=== PATIENT | male | born 1975 | race Two or more races ===

== ENCOUNTER 2019-12-02 11:10 | Inpatient (IN) | payer BC, MEDICAID ==
[~2019-12-02] VITALS: Ht 167.6 cm; Wt 64.5 kg
[~2019-12-02 11:10] MED LIST: ETOMIDATE 20 MG/10 ML ONE; VECURONIUM 10 MG ONE
[2019-12-02] MEDS ORDERED: ROCURONIUM 10MG/ML,5ML ONE (11:35)
[2019-12-02] MEDS ORDERED: ETOMIDATE 20 MG/10 ML ONE (11:35)
[2019-12-02] MEDS ORDERED: PROPOFOL 10 MG/ML, 100ML IV ONE (11:35)
--- NOTE | 2019-12-02 11:40 | NUR ---
PT. ARRIVES BY [facility] WITH C/O 5 DAY HX OF FEVER AND COUGH WITH INCREASING SOB TODAY. PT. PRESENTED TO URGENT CARE WHERE HE WAS REPORTED TO BE 50% SPO2 ON ROOM AIR. PT. WAS TRANSPORTED TO THE ED FOR TX. PT. HAS A NON-REBREATHER IN PLACE AT 15L. PT.'S SPO2 IS 90%. PT. WAS SWITCHED TO A HIGH FLOW NASAL CANNULA AT 45L/98% O2. PT. IS PINK, WARM AND DRY. CAP REFILL IS BRISK, LESS THAN 2 SECONDS. PT. HAS A #20G IV IN PLACE IN HIS LFA A SECOND IV WAS ESTABLASHED IN HIS R HAND. PT.'S 12 LEAD EKG WAS DONE AND HE HAS THE CP MONITOR IN PLACE. PT. LABS WERE DRAWN AND SENT. THE HOB IS ELEVATED GREATER THAN 30 DEGREES AND HE HAS BLANKETS IN PLACE FOR WARMTH. PT. REMAINS A & OX 4 WITH A GCS OF 15. PUPILS ARE PERRLA. HIS NECK IS MIDLINE WITHOUT JVD NOTED. CHEST RISE AND FALL IS SYMMETRICAL AND CRACKLES WERE NOTED IN HIS LEFT LOWER LOBE, OTHERWISE HIS LUNGS ARE CLEAR. S1 S2 NOTED WITH MURMURS, RUBS OR GALLOPS. ABD. IS SOFT AND NON-TENDER WITH BS + X 4 QUADS. PULSES ARE + 2 THROUGHOUT. PT. IS ABLE TO MOVE ALL EXTREMITIES WNL AND HE NO C/O PARESTHSIA, ATAXIA, NUMBNESS, LIMB DRIFTS OR PAIN. PT. REPORTS A HX OF DM AND HTN WHICH HE TAKES METFORMIN AND LISINOPRIL FOR. HE STATES HE RAN OUT OF HIS HOME MEDICATIONS X 5 DAYS AGO. BGL= 375 IN THE FIELD. NS IS INFUSING ON THE PUMP AT 250CC/HR. DR. HAY IS AT THE BEDSIDE. PT. DENIES C/O PAIN OR DISCOMFORT. RESPIRATIONS ARE EUPNEIC AND HE REMAINS IN A SINUS RHYTHM ON THE CARDIOPULMORY MONITOR AT THIS TIME. THE CALL LIGHT IS IN REACH. COVID-[address]
[2019-12-02] MEDS ORDERED: METF850T10 PO (11:51)
[2019-12-02] MEDS ORDERED: LISI-170 PO (11:51)
[2019-12-02 11:53] LABS: BASOPHILS % (AUTO) 0 % (0-1); EOSINOPHILS % (AUTO) 0 % (1-7); LYMPHOCYTES % (AUTO) 12 % (22-44); MEAN CORPUSCULAR HEMOGLOBIN 29.5 pg (27.5-34.5); MEAN CORPUSCULAR HGB CONC 34.1 g/dL (33.2-36.2); MEAN PLATELET VOLUME 8.8 fL (7.4-10.4); MONOCYTES % (AUTO) 5 % (2-9); NEUTROPHILS % (AUTO) 83 % (42-75); PLATELET COUNT 150 x10^3/uL (130-400); RED BLOOD COUNT 4.03 x10^6/uL (4.38-5.82)
[2019-12-02 12:03] LABS: ALANINE AMINOTRANSFERASE 43 U/L (12-78); ALBUMIN 2.6 g/dL (3.4-5.0); ANION GAP 9 mmol/L (5-15); CALCIUM 7.7 mg/dL (8.5-10.1); CHLORIDE 103 mmol/L (98-107); CREATININE 1.09 mg/dL (0.7-1.3)
[2019-12-02 12:08] LABS: D-DIMER (DIC) 1.34 ug/mlFEU (0.00-0.52); PROTIME 10.6 Seconds (9.6-11.5)
[2019-12-02 12:09] LABS: ALKALINE PHOSPHATASE 130 U/L (45-117); BILIRUBIN,TOTAL 0.4 mg/dL (0.2-1.0)
[2019-12-02 12:12] LABS: C-REACTIVE PROTEIN, QUANT > 19.00 mg/dL (0.02-0.49)
[2019-12-02] MEDS: DOXYCYCLINE 100 MG in DEXTROSE 5% 250 ML IV SCH ×2 (12:20→13:20)
[2019-12-02 12:21] LABS: MD NO
[2019-12-02] MEDS ORDERED: SODIUM CHLORIDE 0.9% 1,000 ML IV ONE (12:30)
--- NOTE | 2019-12-02 12:32 | NUR ---
PT. REMAINS MONITORED AND IS RESTING WITHOUT CONCERNS. VSS. DR. HAY AT THE BEDSIDE TO DISCUSS FINDINGS. SIDERAILS REMAIN UP X 2 WITH THE CALL LIGHT IN PLACE. PT.'S WAS CONTACTED AND GIVEN INFORMATION ABOUT HIS DIAGNOSIS AT HIS REQUEST.
[2019-12-02] MEDS ORDERED: DEXAMETHASONE 4 MG/ML, 1ML ONE (12:47)
[2019-12-02] MEDS ORDERED: INSULIN SINGLE DOSE, ER ONE (12:48)
[2019-12-02] MEDS ORDERED: DEXAMETHASONE 4 MG/ML, 1ML IVPush ONE (13:00)
[2019-12-02] MEDS ORDERED: INSULIN REGULAR 100 UNITS/ML, 3ML VIAL SQ-INSULIN ONE (13:00)
--- NOTE | 2019-12-02 14:05 | NUR ---
CT WAITING FOR OK FROM RN
[2019-12-02] MEDS ORDERED: ONDANSETRON ODT 4 MG PO PRN (14:30)
[2019-12-02] MEDS ORDERED: LEVOFLOXACIN/PMX 750MG/150ML 150 ML IV SCH (14:30)
[2019-12-02] MEDS ORDERED: ENOXAPARIN 40 MG/0.4 ML SQ SCH (14:30)
[2019-12-02] MEDS: ZINC SULFATE 220 MG CAPSULE PO SCH (14:30)
[2019-12-02] MEDS ORDERED: CEFTRIAXONE PMX 1GM/50ML 50 ML IV SCH (14:30)
[2019-12-02] MEDS ORDERED: ONDANSETRON 2MG/ML, 2ML IVPush PRN (14:30)
[2019-12-02] MEDS ORDERED: CHOLECALCIFEROL 400 UNITS TABLET PO SCH (14:30)
[2019-12-02] MEDS ORDERED: IBUPROFEN 600 MG TABLET PO PRN (14:30)
[2019-12-02] MEDS ORDERED: OMNIPAQUE 350 MG/ML, 100ML BOTTLE ONE (14:42)
[2019-12-02 15:00] VITALS: BP 98/62
[2019-12-02] MEDS: INSULIN LISPRO 100 UNITS/ML, PEN SQ-INSULIN SCH ×2 (17:31→22:22)
[2019-12-02 17:45] VITALS: BP 117/76
[2019-12-02] MEDS ORDERED: MIDAZOLAM 1 MG/ML, 5ML ONE (18:41)
[2019-12-02] MEDS ORDERED: PROPOFOL 100 ML IV ONE (18:41)
[2019-12-02] MEDS ORDERED: LACTULOSE 20 GM/30 ML UDC NG PRN (20:30)
[2019-12-02] MEDS: CHOLECALCIFEROL 5,000u TAB PO SCH (20:30)
[2019-12-02] MEDS ORDERED: GLUCAGON 1 MG IM PRN (20:30)
[2019-12-02] MEDS ORDERED: DEXTROSE 4 GM TAB.CHEW PO PRN (20:30)
[2019-12-02] MEDS ORDERED: DEXTROSE 50%, 50ML SYRINGE IVPush PRN (20:30)
[2019-12-02] MEDS ORDERED: PHARMACY MAY ADJ FOR RENAL FX MC SCH (20:30)
[2019-12-02] MEDS ORDERED: DOXYCYCLINE 100MG TABLET PO SCH (21:00)
[2019-12-02] MEDS ORDERED: MELATONIN 5 MG TABLET PO SCH (21:00)
[2019-12-02] MEDS: SODIUM CHLORIDE FLUSH 10ML SYR IVF SCH (21:00)
[2019-12-02] MEDS: ASCORBIC ACID 500 MG TABLET PO SCH (21:00)
[2019-12-02] MEDS: THIAMINE 100MG TABLET PO SCH (21:00)
[2019-12-02] MEDS: FENTANYL PF 1,000 MCG in SODIUM CHLORIDE 0.9% 80 ML IV PRN (21:30)
[2019-12-02] MEDS: PROPOFOL 100 ML IV PRN (21:52)
[2019-12-02] MEDS: FAMOTIDINE 20 MG/2 ML IV SCH (22:21)
[2019-12-02] MEDS ORDERED: MIDAZOLAM HCL 50 MG in SODIUM CHLORIDE 0.9% 40 ML IV PRN (23:00)
[2019-12-02] MEDS: ALBUTEROL/IPRATROPIUM 2.5MG/0.5MG, 3 ML HHN SCH (23:00)
[2019-12-03] MEDS ORDERED: REMDESIVIR 200 MG in SODIUM CHLORIDE 0.9% 250 ML IVPB ONE
[2019-12-03] MEDS: NOREPINEPHRINE 8 MG in SODIUM CHLORIDE 0.9% 242 ML IV PRN (01:07)
[2019-12-03] MEDS: FENTANYL PF 1,000 MCG in SODIUM CHLORIDE 0.9% 80 ML IV PRN (02:00)
[2019-12-03] MEDS: PROPOFOL 100 ML IV PRN ×3 (02:02→23:21)
[2019-12-03] MEDS: ALBUTEROL/IPRATROPIUM 2.5MG/0.5MG, 3 ML HHN SCH ×4 (02:14→22:19)
[2019-12-03 04:55] LABS: HCT (SEDRATE) 33.9 % (39.2-51.8)
[2019-12-03 05:00] LABS: CALCIUM 7.3 mg/dL (8.5-10.1); CHLORIDE 106 mmol/L (98-107)
[2019-12-03 05:13] LABS: ALANINE AMINOTRANSFERASE 49 U/L (12-78); ALBUMIN 2.2 g/dL (3.4-5.0); ALKALINE PHOSPHATASE 182 U/L (45-117); ANION GAP 12 mmol/L (5-15); CREATININE 1.51 mg/dL (0.7-1.3); TOTAL PROTEIN 6.4 g/dL (6.4-8.2)
[2019-12-03 05:24] LABS: MEAN CORPUSCULAR HEMOGLOBIN 29.8 pg (27.5-34.5); MEAN CORPUSCULAR HGB CONC 34.3 g/dL (33.2-36.2); MEAN PLATELET VOLUME 9.2 fL (7.4-10.4); PLATELET COUNT 155 x10^3/uL (130-400); RED BLOOD COUNT 3.83 x10^6/uL (4.38-5.82); RED CELL DISTRIBUTION WIDTH 13.1 % (9.4-14.8)
[2019-12-03 05:58] LABS: MD YES
[2019-12-03 06:00] LABS: BAND#(MANUAL) 4.37 x10^3/uL; BANDS%(MANUAL) 38 % (0-7); LYMPH#(MANUAL) 0.92 x10^3/uL (1-3.4); LYMPHS% (MANUAL) 8 % (22-44); METAMYELOCYTES# (MANUAL) 0.23 x10^3/uL (0-0); METAMYELOCYTES% (MANUAL) 2 % (0-1); MONOS#(MANUAL) 0.46 x10^3/uL (0.3-2.7); MONOS% (MANUAL) 4 % (2-9); SEG#(MANUAL) 5.52 x10^3/uL (1.8-6.8); SEGS% (MANUAL) 48 % (42-75)
[2019-12-03] MEDS ORDERED: LACTATED RINGERS 1,000 ML IVBOLUS ONE (06:00)
[2019-12-03 06:02] LABS: ANISOCYTOSIS 1+; POLYCHROMASIA 1+
[2019-12-03 06:03] LABS: <PLATELET ESTIMATE> DECREASED; <PLT MORPHOLOGY> NORMAL PLT MORPH
[2019-12-03 06:05] LABS: C-REACTIVE PROTEIN, QUANT > 19.00 mg/dL (0.02-0.49)
[2019-12-03] MEDS: FAMOTIDINE 20 MG/2 ML IV SCH (08:30)
[2019-12-03] MEDS: ENOXAPARIN 80 MG/0.8 ML SQ SCH ×2 (08:30→20:35)
[2019-12-03] MEDS: CHOLECALCIFEROL 5,000u TAB PO SCH (08:31)
[2019-12-03] MEDS: ZINC SULFATE 220 MG CAPSULE PO SCH (08:31)
[2019-12-03] MEDS: THIAMINE 100MG TABLET PO SCH ×2 (08:31→20:34)
[2019-12-03] MEDS: DEXAMETHASONE 4 MG/ML, 1ML IVPush SCH (08:31)
[2019-12-03] MEDS: ASCORBIC ACID 500 MG TABLET PO SCH ×2 (08:31→20:34)
[2019-12-03] MEDS: INSULIN LISPRO 100 UNITS/ML, PEN SQ-INSULIN SCH ×2 (08:32→17:29)
[2019-12-03] MEDS: SODIUM CHLORIDE FLUSH 10ML SYR IVF SCH ×2 (08:43→20:34)
[2019-12-03 08:53] LABS: RAPID INFLUENZA A Negative (Negative); RAPID INFLUENZA B Negative (Negative)
[2019-12-03] MEDS ORDERED: VANCOMYCIN PER PHARMACY MC PRN (09:30)
[2019-12-03] MEDS ORDERED: PHARMACOKINETIC MONITORING MC PRN (10:30)
[2019-12-03] MEDS ORDERED: VANCOMYCIN 1,900 MG in SODIUM CHLORIDE 0.9% 250 ML IV ONE (10:30)
[2019-12-03] MEDS ORDERED: PHARMACOKINETIC CONSULTATION MC ONE (10:30)
[2019-12-03] MEDS: PANTOPRAZOLE 40 MG IV IVPush SCH (10:30)
[2019-12-03] MEDS ORDERED: SODIUM CHLORIDE 0.9% 1,000ML IVBOLUS ONE (11:00)
--- NOTE | 2019-12-03 12:15 | NUR ---
TF per RD: Vital AF 1.2 @ goal rate of 60mL/hr (on propofol); 65mL/hr (off propofol) Addendum: 12/03/19 at [address] Amended: Links added.
[2019-12-03 13:25] LABS: MICROSCOPIC INDICATED
[2019-12-03] MEDS: LEVOFLOXACIN/PMX 750MG/150ML 150 ML IV SCH (14:12)
[2019-12-03] MEDS: SENNA/DOCUSATE TABLET NG PRN (20:34)
[2019-12-03] MEDS: ACETAMINOPHEN 325 MG TABLET PO PRN (20:34)
[2019-12-04] MEDS: REMDESIVIR 100 MG in SODIUM CHLORIDE 0.9% 250 ML IVPB SCH ×2 (00:27→23:42)
[2019-12-04] MEDS: INSULIN LISPRO 100 UNITS/ML, PEN SQ-INSULIN SCH ×5 (00:27→23:41)
[2019-12-04] MEDS: FENTANYL PF 1,000 MCG in SODIUM CHLORIDE 0.9% 80 ML IV PRN ×3 (01:36→18:09)
[2019-12-04] MEDS: ALBUTEROL/IPRATROPIUM 2.5MG/0.5MG, 3 ML HHN SCH ×4 (02:23→22:39)
[2019-12-04 05:54] LABS: ANION GAP 8 mmol/L (5-15); CALCIUM 7.1 mg/dL (8.5-10.1); CHLORIDE 106 mmol/L (98-107); CREATININE 2.28 mg/dL (0.7-1.3)
[2019-12-04 05:56] LABS: VANCOMYCIN,RANDOM 14.1 mcg/mL
[2019-12-04 05:58] LABS: MEAN CORPUSCULAR HEMOGLOBIN 30.2 pg (27.5-34.5); PLATELET COUNT 174 x10^3/uL (130-400); RED BLOOD COUNT 3.45 x10^6/uL (4.38-5.82); RED CELL DISTRIBUTION WIDTH 13.4 % (9.4-14.8)
[2019-12-04 06:55] LABS: MD YES
[2019-12-04 06:57] LABS: <PLATELET ESTIMATE> ADEQUATE; <PLT MORPHOLOGY> NORMAL PLT MORPH; ANISOCYTOSIS 1+; BAND#(MANUAL) 2.47 x10^3/uL; BANDS%(MANUAL) 19 % (0-7); LYMPH#(MANUAL) 0.91 x10^3/uL (1-3.4); LYMPHS% (MANUAL) 7 % (22-44); METAMYELOCYTES# (MANUAL) 0.26 x10^3/uL (0-0); METAMYELOCYTES% (MANUAL) 2 % (0-1); MONOS#(MANUAL) 0.39 x10^3/uL (0.3-2.7); MONOS% (MANUAL) 3 % (2-9); POLYCHROMASIA 1+; SEG#(MANUAL) 8.97 x10^3/uL (1.8-6.8); SEGS% (MANUAL) 69 % (42-75)
[2019-12-04] MEDS ORDERED: VANCOMYCIN PMX 1GM/200ML 200 ML IVPB ONE (08:00)
[2019-12-04] MEDS: DEXAMETHASONE 4 MG/ML, 1ML IVPush SCH (08:13)
[2019-12-04] MEDS: ZINC SULFATE 220 MG CAPSULE PO SCH (08:13)
[2019-12-04] MEDS: PANTOPRAZOLE 40 MG IV IVPush SCH (08:13)
[2019-12-04] MEDS: THIAMINE 100MG TABLET PO SCH ×2 (08:13→20:36)
[2019-12-04] MEDS: SODIUM CHLORIDE FLUSH 10ML SYR IVF SCH ×2 (08:13→20:37)
[2019-12-04] MEDS: ENOXAPARIN 80 MG/0.8 ML SQ SCH ×2 (08:13→20:36)
[2019-12-04] MEDS: ASCORBIC ACID 500 MG TABLET PO SCH ×2 (08:14→20:36)
[2019-12-04] MEDS: INSULIN GLARGINE 100 UNITS/ML, PEN SQ-INSULIN SCH ×2 (08:17→20:40)
[2019-12-04] MEDS ORDERED: LACTATED RINGERS 1,000 ML IV SCH (10:00)
[2019-12-04] MEDS ORDERED: VANCOMYCIN 1,500 MG in SODIUM CHLORIDE 0.9% 250 ML IV SCH (11:00)
[2019-12-04] MEDS: LEVOFLOXACIN/PMX 750MG/150ML 150 ML IV SCH (13:12)
[2019-12-04 15:35] LABS: ALANINE AMINOTRANSFERASE 49 U/L (12-78); ANION GAP 9 mmol/L (5-15); CALCIUM 7.4 mg/dL (8.5-10.1); CHLORIDE 108 mmol/L (98-107); CREATININE 2.36 mg/dL (0.7-1.3)
[2019-12-04 15:37] LABS: ALKALINE PHOSPHATASE 168 U/L (45-117); BILIRUBIN,TOTAL 0.6 mg/dL (0.2-1.0); TOTAL PROTEIN 6.4 g/dL (6.4-8.2)
[2019-12-05] MEDS: ALBUTEROL/IPRATROPIUM 2.5MG/0.5MG, 3 ML HHN SCH ×2 (02:13→07:10)
[2019-12-05] MEDS: FENTANYL PF 1,000 MCG in SODIUM CHLORIDE 0.9% 80 ML IV PRN ×4 (02:51→23:52)
[2019-12-05] MEDS: PROPOFOL 100 ML IV PRN (05:31)
[2019-12-05] MEDS: INSULIN LISPRO 100 UNITS/ML, PEN SQ-INSULIN SCH ×5 (05:42→21:05)
[2019-12-05 06:11] LABS: MEAN CORPUSCULAR HGB CONC 33.1 g/dL (33.2-36.2); MEAN PLATELET VOLUME 8.9 fL (7.4-10.4); PLATELET COUNT 216 x10^3/uL (130-400); RED BLOOD COUNT 3.54 x10^6/uL (4.38-5.82); RED CELL DISTRIBUTION WIDTH 13.8 % (9.4-14.8)
[2019-12-05 06:20] LABS: INTERNATIONAL NORMALIZED RATIO 1.1 (0.93-1.1); PROTHROMBIN TIME 11.7 Seconds (9.6-11.5)
[2019-12-05 06:22] LABS: ALANINE AMINOTRANSFERASE 39 U/L (12-78); ALBUMIN 1.9 g/dL (3.4-5.0); ANION GAP 7 mmol/L (5-15); CALCIUM 7.5 mg/dL (8.5-10.1); CHLORIDE 110 mmol/L (98-107); CREATININE 1.78 mg/dL (0.7-1.3); TRIGLYCERIDES 309 mg/dL (50-200)
[2019-12-05 06:24] LABS: ALKALINE PHOSPHATASE 171 U/L (45-117); BILIRUBIN,TOTAL 0.4 mg/dL (0.2-1.0); TOTAL PROTEIN 6.3 g/dL (6.4-8.2); VANCOMYCIN,RANDOM 10.8 mcg/mL
[2019-12-05 06:34] LABS: MD YES
[2019-12-05 06:36] LABS: BANDS%(MANUAL) 10 % (0-7); ECHINOCYTES 1+; LYMPH#(MANUAL) 1.53 x10^3/uL (1-3.4); LYMPHS% (MANUAL) 9 % (22-44); MONOS#(MANUAL) 1.02 x10^3/uL (0.3-2.7); MONOS% (MANUAL) 6 % (2-9); REACTIVE LYMPHS # (MANUAL) 0.17 x10^3/uL (0-0); REACTIVE LYMPHS % (MANUAL) 1 % (0-0); SEG#(MANUAL) 12.58 x10^3/uL (1.8-6.8); SEGS% (MANUAL) 74 % (42-75)
[2019-12-05 06:37] LABS: <PLATELET ESTIMATE> ADEQUATE; <PLT MORPHOLOGY> NORMAL PLT MORPH; POLYCHROMASIA 1+
[2019-12-05] MEDS: ENOXAPARIN 80 MG/0.8 ML SQ SCH ×2 (08:51→20:40)
[2019-12-05] MEDS: SODIUM CHLORIDE FLUSH 10ML SYR IVF SCH ×2 (08:51→21:02)
[2019-12-05] MEDS: PANTOPRAZOLE 40 MG IV IVPush SCH (08:52)
[2019-12-05] MEDS: ASCORBIC ACID 500 MG TABLET PO SCH ×2 (08:52→20:41)
[2019-12-05] MEDS: THIAMINE 100MG TABLET PO SCH ×2 (08:52→20:40)
[2019-12-05] MEDS: DEXAMETHASONE 4 MG/ML, 1ML IVPush SCH (08:52)
[2019-12-05] MEDS: ZINC SULFATE 220 MG CAPSULE PO SCH (08:52)
[2019-12-05] MEDS: CHOLECALCIFEROL 1,000 UNIT TABLET PO SCH (08:55)
[2019-12-05] MEDS ORDERED: VANCOMYCIN 1,600 MG in SODIUM CHLORIDE 0.9% 250 ML IV ONE (09:00)
[2019-12-05] MEDS ORDERED: INSULIN GLARGINE 100 UNITS/ML, PEN SQ-INSULIN SCH (09:00)
[2019-12-05] MEDS: MIDAZOLAM HCL 50 MG in SODIUM CHLORIDE 0.9% 40 ML IV PRN ×3 (09:19→23:53)
[2019-12-05] MEDS: ALBUTEROL/IPRATROPIUM 2.5MG/0.5MG, 3 ML INLINE SCH ×4 (10:10→23:45)
[2019-12-05] MEDS: DOXYCYCLINE 100 MG in DEXTROSE 5% 250 ML IV SCH ×2 (12:05→23:52)
[2019-12-05] MEDS ORDERED: INSULIN LISPRO 100 UNITS/ML, PEN SQ-INSULIN SCH (13:00)
[2019-12-05] MEDS: INSULIN GLARGINE 100 UNITS/ML, PEN SQ-INSULIN SCH (21:05)
[2019-12-05] MEDS: REMDESIVIR 100 MG in SODIUM CHLORIDE 0.9% 250 ML IVPB SCH (23:52)
[2019-12-06] MEDS: INSULIN LISPRO 100 UNITS/ML, PEN SQ-INSULIN SCH ×9 (00:30→21:17)
[2019-12-06] MEDS: ALBUTEROL/IPRATROPIUM 2.5MG/0.5MG, 3 ML INLINE SCH ×6 (03:05→22:48)
[2019-12-06 05:54] LABS: ALBUMIN 1.7 g/dL (3.4-5.0); ANION GAP 6 mmol/L (5-15); CHLORIDE 115 mmol/L (98-107)
[2019-12-06 05:55] LABS: MEAN CORPUSCULAR HEMOGLOBIN 29.5 pg (27.5-34.5); MEAN CORPUSCULAR HGB CONC 33.3 g/dL (33.2-36.2); MEAN PLATELET VOLUME 8.7 fL (7.4-10.4); PLATELET COUNT 229 x10^3/uL (130-400); RED BLOOD COUNT 3.43 x10^6/uL (4.38-5.82); RED CELL DISTRIBUTION WIDTH 13.8 % (9.4-14.8)
[2019-12-06 05:58] LABS: ALANINE AMINOTRANSFERASE 31 U/L (12-78); ALKALINE PHOSPHATASE 176 U/L (45-117); BILIRUBIN,TOTAL 0.4 mg/dL (0.2-1.0); CREATININE 1.52 mg/dL (0.7-1.3); TOTAL PROTEIN 6.1 g/dL (6.4-8.2)
[2019-12-06 06:01] LABS: VANCOMYCIN,RANDOM 13.1 mcg/mL
[2019-12-06 06:23] LABS: MD YES
[2019-12-06 06:26] LABS: BAND#(MANUAL) 2.82 x10^3/uL; BANDS%(MANUAL) 16 % (0-7); LYMPH#(MANUAL) 1.23 x10^3/uL (1-3.4); LYMPHS% (MANUAL) 7 % (22-44); MONOS#(MANUAL) 0.18 x10^3/uL (0.3-2.7); MONOS% (MANUAL) 1 % (2-9); MYELOCYTES# (MANUAL) 0.18 x10^3/uL (0-0); MYELOCYTES% (MANUAL) 1 % (0-0); SEGS% (MANUAL) 75 % (42-75)
[2019-12-06 06:27] LABS: ANISOCYTOSIS 1+; POLYCHROMASIA 1+; TEAR DROPS 1+
[2019-12-06 06:28] LABS: ECHINOCYTES 1+
[2019-12-06 06:29] LABS: <PLATELET ESTIMATE> ADEQUATE
[2019-12-06 06:30] LABS: <PLT MORPHOLOGY> NORMAL PLT MORPH
[2019-12-06] MEDS: FENTANYL PF 1,000 MCG in SODIUM CHLORIDE 0.9% 80 ML IV PRN ×3 (08:18→23:29)
[2019-12-06] MEDS: PANTOPRAZOLE 40 MG IV IVPush SCH (08:47)
[2019-12-06] MEDS: ENOXAPARIN 80 MG/0.8 ML SQ SCH ×2 (08:47→20:59)
[2019-12-06] MEDS: DEXAMETHASONE 4 MG/ML, 1ML IVPush SCH (08:47)
[2019-12-06] MEDS: SODIUM CHLORIDE FLUSH 10ML SYR IVF SCH ×2 (08:48→21:14)
[2019-12-06] MEDS: CHOLECALCIFEROL 1,000 UNIT TABLET PO SCH (08:48)
[2019-12-06] MEDS: ZINC SULFATE 220 MG CAPSULE PO SCH (08:49)
[2019-12-06] MEDS: ASCORBIC ACID 500 MG TABLET PO SCH ×2 (08:51→20:57)
[2019-12-06] MEDS: THIAMINE 100MG TABLET PO SCH ×2 (08:51→20:57)
[2019-12-06] MEDS: INSULIN GLARGINE 100 UNITS/ML, PEN SQ-INSULIN SCH ×2 (08:52→21:17)
[2019-12-06] MEDS ORDERED: FUROSEMIDE 40 MG/4 ML IV ONE (10:00)
[2019-12-06] MEDS: QUETIAPINE 25MG TABLET PO SCH ×3 (10:43→20:58)
[2019-12-06] MEDS: DOXYCYCLINE 100 MG in DEXTROSE 5% 250 ML IV SCH ×2 (10:43→23:29)
[2019-12-06] MEDS: MIDAZOLAM HCL 50 MG in SODIUM CHLORIDE 0.9% 40 ML IV PRN ×2 (12:27→16:20)
[2019-12-06] MEDS: REMDESIVIR 100 MG in SODIUM CHLORIDE 0.9% 250 ML IVPB SCH (23:29)
[2019-12-07] MEDS: INSULIN LISPRO 100 UNITS/ML, PEN SQ-INSULIN SCH ×8 (01:00→21:02)
[2019-12-07] MEDS: ALBUTEROL/IPRATROPIUM 2.5MG/0.5MG, 3 ML INLINE SCH ×6 (02:09→22:28)
[2019-12-07] MEDS: MIDAZOLAM HCL 50 MG in SODIUM CHLORIDE 0.9% 40 ML IV PRN ×3 (02:32→20:54)
[2019-12-07 04:35] LABS: ANION GAP 8 mmol/L (5-15); CALCIUM 8.4 mg/dL (8.5-10.1); CHLORIDE 112 mmol/L (98-107)
[2019-12-07 05:01] LABS: MEAN CORPUSCULAR HEMOGLOBIN 29.5 pg (27.5-34.5); MEAN CORPUSCULAR HGB CONC 33.1 g/dL (33.2-36.2); MEAN PLATELET VOLUME 9.1 fL (7.4-10.4); PLATELET COUNT 235 x10^3/uL (130-400); RED BLOOD COUNT 3.39 x10^6/uL (4.38-5.82); RED CELL DISTRIBUTION WIDTH 14.1 % (9.4-14.8)
[2019-12-07] MEDS: FENTANYL PF 1,000 MCG in SODIUM CHLORIDE 0.9% 80 ML IV PRN ×3 (05:30→20:55)
[2019-12-07 05:53] LABS: MD YES
[2019-12-07 05:58] LABS: LYMPH#(MANUAL) 1.82 x10^3/uL (1-3.4); LYMPHS% (MANUAL) 13 % (22-44); METAMYELOCYTES# (MANUAL) 0.56 x10^3/uL (0-0); METAMYELOCYTES% (MANUAL) 4 % (0-1); MONOS#(MANUAL) 0.98 x10^3/uL (0.3-2.7); MONOS% (MANUAL) 7 % (2-9); MYELOCYTES# (MANUAL) 0.28 x10^3/uL (0-0); MYELOCYTES% (MANUAL) 2 % (0-0); SEG#(MANUAL) 10.36 x10^3/uL (1.8-6.8); SEGS% (MANUAL) 74 % (42-75)
[2019-12-07 05:59] LABS: <PLATELET ESTIMATE> ADEQUATE; <PLT MORPHOLOGY> NORMAL PLT MORPH
[2019-12-07 06:00] LABS: POLYCHROMASIA 1+
[2019-12-07] MEDS: SODIUM CHLORIDE FLUSH 10ML SYR IVF SCH ×2 (08:03→20:52)
[2019-12-07] MEDS: PANTOPRAZOLE 40 MG IV IVPush SCH (08:03)
[2019-12-07] MEDS: ENOXAPARIN 80 MG/0.8 ML SQ SCH ×2 (08:03→20:52)
[2019-12-07] MEDS: DEXAMETHASONE 4 MG/ML, 1ML IVPush SCH (08:05)
[2019-12-07] MEDS: INSULIN GLARGINE 100 UNITS/ML, PEN SQ-INSULIN SCH ×2 (08:07→21:02)
[2019-12-07] MEDS: QUETIAPINE 25MG TABLET PO SCH ×3 (08:09→20:52)
[2019-12-07] MEDS: ASCORBIC ACID 500 MG TABLET PO SCH ×2 (08:10→20:52)
[2019-12-07] MEDS: CHOLECALCIFEROL 1,000 UNIT TABLET PO SCH (08:10)
[2019-12-07] MEDS: ZINC SULFATE 220 MG CAPSULE PO SCH (08:10)
[2019-12-07] MEDS: THIAMINE 100MG TABLET PO SCH ×2 (08:10→20:52)
[2019-12-07] MEDS: DOXYCYCLINE 100 MG in DEXTROSE 5% 250 ML IV SCH (11:27)
[2019-12-07] MEDS: MIDAZOLAM 1 MG/ML, 2ML IVPush PRN ×2 (13:15→18:29)
[2019-12-07] MEDS: POLYETHYLENE GLYCOL 17 GM PACKET PO PRN (17:41)
[2019-12-07] MEDS: SENNA/DOCUSATE TABLET NG PRN (17:41)
[2019-12-07] MEDS: REMDESIVIR 100 MG in SODIUM CHLORIDE 0.9% 250 ML IVPB SCH (23:27)
[2019-12-08] MEDS: INSULIN LISPRO 100 UNITS/ML, PEN SQ-INSULIN SCH ×9 (00:30→23:59)
[2019-12-08] MEDS: DOXYCYCLINE 100 MG in DEXTROSE 5% 250 ML IV SCH ×2 (01:21→11:45)
[2019-12-08] MEDS: ALBUTEROL/IPRATROPIUM 2.5MG/0.5MG, 3 ML INLINE SCH ×6 (01:45→22:26)
[2019-12-08] MEDS: LIDOCAINE-MPF 1%, 2ML ENDO PRN (03:51)
[2019-12-08 04:20] LABS: MEAN CORPUSCULAR HEMOGLOBIN 29.5 pg (27.5-34.5); MEAN CORPUSCULAR HGB CONC 32.8 g/dL (33.2-36.2); MEAN PLATELET VOLUME 8.2 fL (7.4-10.4); PLATELET COUNT 240 x10^3/uL (130-400); RED BLOOD COUNT 3.56 x10^6/uL (4.38-5.82); RED CELL DISTRIBUTION WIDTH 13.8 % (9.4-14.8)
[2019-12-08 04:29] LABS: INTERNATIONAL NORMALIZED RATIO 1.08 (0.93-1.1); PROTHROMBIN TIME 11.4 Seconds (9.6-11.5)
[2019-12-08 04:31] LABS: ALBUMIN 1.9 g/dL (3.4-5.0); ANION GAP 7 mmol/L (5-15); CALCIUM 8.8 mg/dL (8.5-10.1); CHLORIDE 116 mmol/L (98-107)
[2019-12-08 04:34] LABS: ALANINE AMINOTRANSFERASE 54 U/L (12-78); ALKALINE PHOSPHATASE 180 U/L (45-117); BILIRUBIN,TOTAL 0.4 mg/dL (0.2-1.0); CREATININE 1.36 mg/dL (0.7-1.3); TOTAL PROTEIN 6.2 g/dL (6.4-8.2); TRIGLYCERIDES 137 mg/dL (50-200)
[2019-12-08] MEDS: MIDAZOLAM HCL 50 MG in SODIUM CHLORIDE 0.9% 40 ML IV PRN ×3 (04:38→18:50)
[2019-12-08] MEDS: FENTANYL PF 1,000 MCG in SODIUM CHLORIDE 0.9% 80 ML IV PRN ×3 (04:38→18:50)
[2019-12-08 04:48] LABS: MD YES
[2019-12-08 04:50] LABS: BAND#(MANUAL) 0.65 x10^3/uL; BANDS%(MANUAL) 4 % (0-7); LYMPH#(MANUAL) 2.45 x10^3/uL (1-3.4); LYMPHS% (MANUAL) 15 % (22-44); MONOS#(MANUAL) 0.82 x10^3/uL (0.3-2.7); MONOS% (MANUAL) 5 % (2-9); MYELOCYTES# (MANUAL) 0.33 x10^3/uL (0-0); MYELOCYTES% (MANUAL) 2 % (0-0); SEG#(MANUAL) 12.06 x10^3/uL (1.8-6.8); SEGS% (MANUAL) 74 % (42-75)
[2019-12-08 04:51] LABS: <PLATELET ESTIMATE> ADEQUATE; <PLT MORPHOLOGY> NORMAL PLT MORPH; POLYCHROMASIA 1+
[2019-12-08] MEDS ORDERED: DEXAMETHASONE 4 MG/ML, 1ML IVPush ONE (06:00)
[2019-12-08] MEDS: ZINC SULFATE 220 MG CAPSULE PO SCH (07:56)
[2019-12-08] MEDS: ASCORBIC ACID 500 MG TABLET PO SCH ×2 (07:56→20:30)
[2019-12-08] MEDS: THIAMINE 100MG TABLET PO SCH ×2 (07:56→20:30)
[2019-12-08] MEDS: CHOLECALCIFEROL 1,000 UNIT TABLET PO SCH (07:58)
[2019-12-08] MEDS: QUETIAPINE 25MG TABLET PO SCH ×3 (07:59→20:30)
[2019-12-08] MEDS: PANTOPRAZOLE 40 MG IV IVPush SCH (07:59)
[2019-12-08] MEDS: ENOXAPARIN 80 MG/0.8 ML SQ SCH ×2 (07:59→20:31)
[2019-12-08] MEDS ORDERED: FUROSEMIDE 40 MG/4 ML IV ONE (08:00)
[2019-12-08] MEDS: SODIUM CHLORIDE FLUSH 10ML SYR IVF SCH ×2 (08:00→20:30)
[2019-12-08] MEDS: INSULIN GLARGINE 100 UNITS/ML, PEN SQ-INSULIN SCH ×2 (08:14→20:39)
[2019-12-08] MEDS: ALBUMIN HUMAN 25% 100 ML IV SCH ×2 (09:12→17:56)
[2019-12-08] MEDS: POLYETHYLENE GLYCOL 17 GM PACKET PO PRN (11:55)
[2019-12-08] MEDS ORDERED: FUROSEMIDE 20 MG/2 ML IV SCH (17:00)
[2019-12-08] MEDS: FUROSEMIDE 40 MG/4 ML IV SCH (17:56)
[2019-12-08 18:28] LABS: ANION GAP 7 mmol/L (5-15); CALCIUM 8.8 mg/dL (8.5-10.1); CHLORIDE 112 mmol/L (98-107); CREATININE 1.41 mg/dL (0.7-1.3)
[2019-12-08] MEDS: REMDESIVIR 100 MG in SODIUM CHLORIDE 0.9% 250 ML IVPB SCH (23:51)
[2019-12-09] MEDS: DOXYCYCLINE 100 MG in DEXTROSE 5% 250 ML IV SCH ×2 (01:58→13:29)
[2019-12-09] MEDS: INSULIN LISPRO 100 UNITS/ML, PEN SQ-INSULIN SCH ×7 (02:29→17:31)
[2019-12-09] MEDS: FENTANYL PF 1,000 MCG in SODIUM CHLORIDE 0.9% 80 ML IV PRN ×4 (02:43→23:00)
[2019-12-09] MEDS: ALBUTEROL/IPRATROPIUM 2.5MG/0.5MG, 3 ML INLINE SCH ×6 (03:00→22:45)
[2019-12-09] MEDS: ALBUMIN HUMAN 25% 100 ML IV SCH ×3 (03:05→19:34)
[2019-12-09 04:49] LABS: MEAN CORPUSCULAR HEMOGLOBIN 29.9 pg (27.5-34.5); MEAN CORPUSCULAR HGB CONC 33.4 g/dL (33.2-36.2); MEAN PLATELET VOLUME 8.4 fL (7.4-10.4); PLATELET COUNT 231 x10^3/uL (130-400)
[2019-12-09 04:58] LABS: ALANINE AMINOTRANSFERASE 34 U/L (12-78); ALBUMIN 2.8 g/dL (3.4-5.0); ANION GAP 8 mmol/L (5-15); CHLORIDE 112 mmol/L (98-107); CREATININE 1.49 mg/dL (0.7-1.3)
[2019-12-09 05:01] LABS: ALKALINE PHOSPHATASE 129 U/L (45-117); BILIRUBIN,TOTAL 0.5 mg/dL (0.2-1.0); TOTAL PROTEIN 6.8 g/dL (6.4-8.2)
[2019-12-09 05:51] LABS: MD YES
[2019-12-09 05:53] LABS: BANDS%(MANUAL) 2 % (0-7); LYMPH#(MANUAL) 1.94 x10^3/uL (1-3.4); LYMPHS% (MANUAL) 19 % (22-44); METAMYELOCYTES% (MANUAL) 2 % (0-1); MONOS#(MANUAL) 0.31 x10^3/uL (0.3-2.7); MONOS% (MANUAL) 3 % (2-9); MYELOCYTES# (MANUAL) 0.31 x10^3/uL (0-0); MYELOCYTES% (MANUAL) 3 % (0-0); SEG#(MANUAL) 7.24 x10^3/uL (1.8-6.8); SEGS% (MANUAL) 71 % (42-75)
[2019-12-09 05:55] LABS: <PLATELET ESTIMATE> ADEQUATE; <PLT MORPHOLOGY> NORMAL PLT MORPH; POLYCHROMASIA 1+
[2019-12-09 05:56] LABS: BASOPHILLIC STIPPLING 1+
[2019-12-09] MEDS: ENOXAPARIN 80 MG/0.8 ML SQ SCH ×2 (08:19→21:58)
[2019-12-09] MEDS: PANTOPRAZOLE 40 MG IV IVPush SCH (08:19)
[2019-12-09] MEDS: CHOLECALCIFEROL 1,000 UNIT TABLET PO SCH (08:20)
[2019-12-09] MEDS: FUROSEMIDE 40 MG/4 ML IV SCH ×2 (08:20→17:13)
[2019-12-09] MEDS: ASCORBIC ACID 500 MG TABLET PO SCH ×2 (08:20→21:58)
[2019-12-09] MEDS: QUETIAPINE 25MG TABLET PO SCH ×3 (08:20→21:58)
[2019-12-09] MEDS: THIAMINE 100MG TABLET PO SCH ×2 (08:21→21:58)
[2019-12-09] MEDS: POLYETHYLENE GLYCOL 17 GM PACKET PO PRN ×2 (08:21→22:08)
[2019-12-09] MEDS: SENNA/DOCUSATE TABLET PO PRN ×2 (08:22→22:08)
[2019-12-09] MEDS: SODIUM CHLORIDE FLUSH 10ML SYR IVF SCH ×2 (08:32→21:57)
[2019-12-09] MEDS: INSULIN GLARGINE 100 UNITS/ML, PEN SQ-INSULIN SCH ×2 (08:33→21:59)
[2019-12-09] MEDS: ZINC SULFATE 220 MG CAPSULE PO SCH (08:33)
[2019-12-09] MEDS ORDERED: DEXAMETHASONE 4 MG/ML, 1ML IVPush ONE (09:00)
[2019-12-09] MEDS ORDERED: INSULIN LISPRO 100 UNITS/ML, PEN SQ-INSULIN SCH (12:00)
[2019-12-09] MEDS: MIDAZOLAM HCL 50 MG in SODIUM CHLORIDE 0.9% 40 ML IV PRN ×2 (14:45→22:01)
[2019-12-09] MEDS ORDERED: DOXYCYCLINE 100MG TABLET PO SCH (21:00)
[2019-12-09] MEDS: DOXYCYCLINE 100MG CAP PO SCH (21:57)
[2019-12-10] MEDS: REMDESIVIR 100 MG in SODIUM CHLORIDE 0.9% 250 ML IVPB SCH ×2 (00:02→23:47)
[2019-12-10] MEDS: INSULIN LISPRO 100 UNITS/ML, PEN SQ-INSULIN SCH ×10 (00:06→23:47)
[2019-12-10] MEDS: ALBUTEROL/IPRATROPIUM 2.5MG/0.5MG, 3 ML INLINE SCH ×6 (02:50→22:35)
[2019-12-10 04:30] LABS: MEAN CORPUSCULAR HEMOGLOBIN 29.8 pg (27.5-34.5); MEAN CORPUSCULAR HGB CONC 33.6 g/dL (33.2-36.2); MEAN PLATELET VOLUME 8.5 fL (7.4-10.4); PLATELET COUNT 231 x10^3/uL (130-400); RED BLOOD COUNT 2.94 x10^6/uL (4.38-5.82); RED CELL DISTRIBUTION WIDTH 13.5 % (9.4-14.8)
[2019-12-10 04:42] LABS: ALANINE AMINOTRANSFERASE 27 U/L (12-78); ANION GAP 5 mmol/L (5-15); CALCIUM 9.3 mg/dL (8.5-10.1); CHLORIDE 110 mmol/L (98-107); CREATININE 1.39 mg/dL (0.7-1.3)
[2019-12-10 04:45] LABS: ALKALINE PHOSPHATASE 105 U/L (45-117); BILIRUBIN,TOTAL 0.7 mg/dL (0.2-1.0); TOTAL PROTEIN 7.2 g/dL (6.4-8.2)
[2019-12-10] MEDS ORDERED: DEXAMETHASONE 4 MG/ML, 1ML IVPush ONE (05:30)
[2019-12-10 05:49] LABS: MD YES
[2019-12-10 05:51] LABS: BAND#(MANUAL) 0.37 x10^3/uL; BANDS%(MANUAL) 4 % (0-7); LYMPH#(MANUAL) 0.93 x10^3/uL (1-3.4); LYMPHS% (MANUAL) 10 % (22-44); METAMYELOCYTES# (MANUAL) 0.09 x10^3/uL (0-0); METAMYELOCYTES% (MANUAL) 1 % (0-1); MONOS#(MANUAL) 0.65 x10^3/uL (0.3-2.7); MONOS% (MANUAL) 7 % (2-9); POLYCHROMASIA 1+; SEG#(MANUAL) 7.25 x10^3/uL (1.8-6.8); SEGS% (MANUAL) 78 % (42-75)
[2019-12-10 05:52] LABS: <PLATELET ESTIMATE> ADEQUATE; <PLT MORPHOLOGY> NORMAL PLT MORPH
[2019-12-10] MEDS: FENTANYL PF 1,000 MCG in SODIUM CHLORIDE 0.9% 80 ML IV PRN ×3 (06:39→22:18)
[2019-12-10] MEDS: FUROSEMIDE 40 MG/4 ML IV SCH ×2 (07:37→17:34)
[2019-12-10] MEDS: SODIUM CHLORIDE FLUSH 10ML SYR IVF SCH ×2 (09:16→20:43)
[2019-12-10] MEDS: PANTOPRAZOLE 40 MG IV IVPush SCH (09:16)
[2019-12-10] MEDS: ALBUMIN HUMAN 25% 100 ML IV SCH ×2 (09:16→20:42)
[2019-12-10] MEDS: ZINC SULFATE 220 MG CAPSULE PO SCH (09:17)
[2019-12-10] MEDS: ENOXAPARIN 80 MG/0.8 ML SQ SCH ×2 (09:17→20:43)
[2019-12-10] MEDS: DOXYCYCLINE 100MG CAP PO SCH ×2 (09:17→20:43)
[2019-12-10] MEDS: THIAMINE 100MG TABLET PO SCH ×2 (09:17→20:43)
[2019-12-10] MEDS: QUETIAPINE 25MG TABLET PO SCH ×3 (09:17→20:43)
[2019-12-10] MEDS: CHOLECALCIFEROL 1,000 UNIT TABLET PO SCH (09:17)
[2019-12-10] MEDS: ASCORBIC ACID 500 MG TABLET PO SCH ×2 (09:17→20:43)
[2019-12-10] MEDS: INSULIN GLARGINE 100 UNITS/ML, PEN SQ-INSULIN SCH ×2 (09:20→20:44)
[2019-12-10] MEDS: MIDAZOLAM HCL 50 MG in SODIUM CHLORIDE 0.9% 40 ML IV PRN ×2 (09:26→20:45)
[2019-12-10] MEDS: POLYETHYLENE GLYCOL 17 GM PACKET PO PRN (22:17)
[2019-12-10] MEDS: SENNA/DOCUSATE TABLET PO PRN (22:17)
[2019-12-11] MEDS: ALBUTEROL/IPRATROPIUM 2.5MG/0.5MG, 3 ML INLINE SCH ×6 (02:25→22:11)
[2019-12-11] MEDS: FENTANYL PF 1,000 MCG in SODIUM CHLORIDE 0.9% 80 ML IV PRN ×3 (02:42→15:02)
[2019-12-11] MEDS: MIDAZOLAM HCL 50 MG in SODIUM CHLORIDE 0.9% 40 ML IV PRN ×3 (03:33→16:31)
[2019-12-11 04:42] LABS: MEAN CORPUSCULAR HGB CONC 32.7 g/dL (33.2-36.2); MEAN PLATELET VOLUME 8.3 fL (7.4-10.4); PLATELET COUNT 271 x10^3/uL (130-400); RED BLOOD COUNT 3.06 x10^6/uL (4.38-5.82); RED CELL DISTRIBUTION WIDTH 13.5 % (9.4-14.8)
[2019-12-11 04:45] LABS: ALBUMIN 3.3 g/dL (3.4-5.0); ANION GAP 5 mmol/L (5-15); CALCIUM 9.4 mg/dL (8.5-10.1); CHLORIDE 109 mmol/L (98-107)
[2019-12-11 04:50] LABS: ALANINE AMINOTRANSFERASE 25 U/L (12-78); ALKALINE PHOSPHATASE 111 U/L (45-117); BILIRUBIN,TOTAL 0.6 mg/dL (0.2-1.0); CREATININE 1.41 mg/dL (0.7-1.3); TOTAL PROTEIN 7.4 g/dL (6.4-8.2); TRIGLYCERIDES 126 mg/dL (50-200)
[2019-12-11] MEDS: INSULIN LISPRO 100 UNITS/ML, PEN SQ-INSULIN SCH ×4 (05:20→17:51)
[2019-12-11 05:44] LABS: MD YES
[2019-12-11 05:45] LABS: BAND#(MANUAL) 0.35 x10^3/uL; BANDS%(MANUAL) 3 % (0-7); EOS#(MANUAL) 0.12 x10^3/uL (0.0-0.4); EOS% (MANUAL) 1 % (1-7); LYMPH#(MANUAL) 1.86 x10^3/uL (1-3.4); LYMPHS% (MANUAL) 16 % (22-44); METAMYELOCYTES# (MANUAL) 0.12 x10^3/uL (0-0); METAMYELOCYTES% (MANUAL) 1 % (0-1); MONOS#(MANUAL) 0.93 x10^3/uL (0.3-2.7); MONOS% (MANUAL) 8 % (2-9); SEG#(MANUAL) 8.24 x10^3/uL (1.8-6.8); SEGS% (MANUAL) 71 % (42-75)
[2019-12-11 05:46] LABS: <PLATELET ESTIMATE> ADEQUATE; <PLT MORPHOLOGY> NORMAL PLT MORPH; POLYCHROMASIA 1+
[2019-12-11] MEDS ORDERED: PROPOFOL 100 ML IV ONE (08:31)
[2019-12-11] MEDS: ALBUMIN HUMAN 25% 100 ML IV SCH ×2 (08:47→20:03)
[2019-12-11] MEDS: PANTOPRAZOLE 40 MG IV IVPush SCH (08:50)
[2019-12-11] MEDS: ENOXAPARIN 40 MG/0.4 ML SQ SCH ×2 (08:50→20:03)
[2019-12-11] MEDS: SODIUM CHLORIDE FLUSH 10ML SYR IVF SCH ×2 (08:51→20:04)
[2019-12-11] MEDS: SENNA/DOCUSATE TABLET PO PRN (08:52)
[2019-12-11] MEDS: CHOLECALCIFEROL 1,000 UNIT TABLET PO SCH (08:52)
[2019-12-11] MEDS: ASCORBIC ACID 500 MG TABLET PO SCH ×2 (08:53→20:20)
[2019-12-11] MEDS: QUETIAPINE 25MG TABLET PO SCH ×3 (08:57→20:19)
[2019-12-11] MEDS: THIAMINE 100MG TABLET PO SCH ×2 (08:57→20:22)
[2019-12-11] MEDS: ZINC SULFATE 220 MG CAPSULE PO SCH (08:57)
[2019-12-11] MEDS: DOXYCYCLINE 100MG CAP PO SCH ×2 (08:57→20:19)
[2019-12-11] MEDS: INSULIN GLARGINE 100 UNITS/ML, PEN SQ-INSULIN SCH ×2 (09:03→20:33)
[2019-12-11] MEDS: PROPOFOL 100 ML IV PRN ×2 (09:12→20:00)
[2019-12-11] MEDS: ACETAMINOPHEN 325 MG TABLET PO PRN ×2 (10:50→18:00)
[2019-12-11] MEDS ORDERED: LACTULOSE 10 GM/15 ML UDC NG PRN (11:52)
[2019-12-11] MEDS: SENNA/DOCUSATE TABLET NG PRN (20:20)
[2019-12-11] MEDS: POLYETHYLENE GLYCOL 17 GM PACKET PO PRN (20:20)
[2019-12-11] MEDS: FENTANYL PF 2,500 MCG in SODIUM CHLORIDE 0.9% 200 ML IV PRN (20:48)
[2019-12-12] MEDS: INSULIN LISPRO 100 UNITS/ML, PEN SQ-INSULIN SCH ×5 (00:21→23:33)
[2019-12-12] MEDS: REMDESIVIR 100 MG in SODIUM CHLORIDE 0.9% 250 ML IVPB SCH (00:21)
[2019-12-12] MEDS: MIDAZOLAM HCL 50 MG in SODIUM CHLORIDE 0.9% 40 ML IV PRN (02:15)
[2019-12-12] MEDS: ALBUTEROL/IPRATROPIUM 2.5MG/0.5MG, 3 ML INLINE SCH ×6 (02:26→22:17)
[2019-12-12 05:09] LABS: ANION GAP 6 mmol/L (5-15); CALCIUM 9.3 mg/dL (8.5-10.1); CHLORIDE 110 mmol/L (98-107)
[2019-12-12 05:10] LABS: CREATININE 1.63 mg/dL (0.7-1.3)
[2019-12-12] MEDS: PROPOFOL 100 ML IV PRN ×4 (05:42→20:36)
[2019-12-12 05:50] LABS: BASOPHILS % (AUTO) 0 % (0-1); EOSINOPHILS % (AUTO) 1 % (1-7); LYMPHOCYTES % (AUTO) 13 % (22-44); MEAN CORPUSCULAR HEMOGLOBIN 30.4 pg (27.5-34.5); MEAN CORPUSCULAR HGB CONC 33.9 g/dL (33.2-36.2); MONOCYTES % (AUTO) 10 % (2-9); NEUTROPHILS % (AUTO) 76 % (42-75); PLATELET COUNT 228 x10^3/uL (130-400); RED BLOOD COUNT 2.64 x10^6/uL (4.38-5.82); RED CELL DISTRIBUTION WIDTH 13.4 % (9.4-14.8)
[2019-12-12 06:04] LABS: MD NO
[2019-12-12] MEDS: ACETAMINOPHEN 325 MG TABLET PO PRN ×2 (06:37→20:06)
[2019-12-12] MEDS ORDERED: FUROSEMIDE 40 MG/4 ML IV ONE (07:30)
[2019-12-12] MEDS: CHOLECALCIFEROL 1,000 UNIT TABLET PO SCH (08:52)
[2019-12-12] MEDS: THIAMINE 100MG TABLET PO SCH (08:53)
[2019-12-12] MEDS: PANTOPRAZOLE 40 MG IV IVPush SCH (08:53)
[2019-12-12] MEDS: ASCORBIC ACID 500 MG TABLET PO SCH ×2 (08:53→20:06)
[2019-12-12] MEDS: DOXYCYCLINE 100MG CAP PO SCH ×2 (08:53→20:06)
[2019-12-12] MEDS: ZINC SULFATE 220 MG CAPSULE PO SCH (08:53)
[2019-12-12] MEDS: QUETIAPINE 25MG TABLET PO SCH ×3 (08:53→20:06)
[2019-12-12] MEDS: ENOXAPARIN 40 MG/0.4 ML SQ SCH ×2 (08:54→20:07)
[2019-12-12] MEDS: SODIUM CHLORIDE FLUSH 10ML SYR IVF SCH ×2 (08:55→20:05)
[2019-12-12] MEDS: INSULIN GLARGINE 100 UNITS/ML, PEN SQ-INSULIN SCH ×2 (10:29→20:05)
[2019-12-12] MEDS: FENTANYL PF 2,500 MCG in SODIUM CHLORIDE 0.9% 200 ML IV PRN (14:15)
[2019-12-12 20:35] LABS: MICROSCOPIC INDICATED
[2019-12-13] MEDS: MIDAZOLAM 1 MG/ML, 2ML IVPush PRN ×4 (00:13→12:35)
[2019-12-13] MEDS: ALBUTEROL/IPRATROPIUM 2.5MG/0.5MG, 3 ML INLINE SCH ×6 (02:32→22:32)
[2019-12-13] MEDS: PROPOFOL 100 ML IV PRN ×5 (02:52→20:59)
[2019-12-13 04:36] LABS: BASOPHILS % (AUTO) 1 % (0-1); EOSINOPHILS % (AUTO) 1 % (1-7); LYMPHOCYTES % (AUTO) 9 % (22-44); MEAN CORPUSCULAR HEMOGLOBIN 29.8 pg (27.5-34.5); MEAN CORPUSCULAR HGB CONC 33.1 g/dL (33.2-36.2); MEAN PLATELET VOLUME 8.6 fL (7.4-10.4); MONOCYTES % (AUTO) 11 % (2-9); NEUTROPHILS % (AUTO) 79 % (42-75); PLATELET COUNT 256 x10^3/uL (130-400); RED BLOOD COUNT 2.81 x10^6/uL (4.38-5.82); RED CELL DISTRIBUTION WIDTH 13.7 % (9.4-14.8)
[2019-12-13] MEDS: INSULIN LISPRO 100 UNITS/ML, PEN SQ-INSULIN SCH ×3 (04:39→16:02)
[2019-12-13 04:43] LABS: MD NO
[2019-12-13 04:47] LABS: ANION GAP 5 mmol/L (5-15); CALCIUM 9.6 mg/dL (8.5-10.1); CHLORIDE 112 mmol/L (98-107)
[2019-12-13] MEDS: ASCORBIC ACID 500 MG TABLET PO SCH ×2 (07:47→21:07)
[2019-12-13] MEDS: CHOLECALCIFEROL 1,000 UNIT TABLET PO SCH (07:47)
[2019-12-13] MEDS: ZINC SULFATE 220 MG CAPSULE PO SCH (07:48)
[2019-12-13] MEDS: QUETIAPINE 25MG TABLET PO SCH ×3 (07:48→21:08)
[2019-12-13] MEDS: DOXYCYCLINE 100MG CAP PO SCH ×2 (07:48→21:07)
[2019-12-13] MEDS: SENNA/DOCUSATE TABLET NG PRN (07:48)
[2019-12-13] MEDS: PANTOPRAZOLE 40 MG IV IVPush SCH (07:49)
[2019-12-13] MEDS ORDERED: ENOXAPARIN 40 MG/0.4 ML SQ SCH (08:00)
[2019-12-13] MEDS: ENOXAPARIN 40 MG/0.4 ML SQ SCH ×2 (08:32→21:07)
[2019-12-13] MEDS: SODIUM CHLORIDE FLUSH 10ML SYR IVF SCH ×2 (09:00→21:07)
[2019-12-13] MEDS: FENTANYL PF 2,500 MCG in SODIUM CHLORIDE 0.9% 200 ML IV PRN (12:04)
[2019-12-13] MEDS: INSULIN GLARGINE 100 UNITS/ML, PEN SQ-INSULIN SCH ×2 (12:52→21:08)
[2019-12-13] MEDS: MIDAZOLAM HCL 50 MG in SODIUM CHLORIDE 0.9% 40 ML IV PRN (14:05)
[2019-12-13] MEDS ORDERED: FUROSEMIDE 40 MG/4 ML ONE (14:19)
[2019-12-13] MEDS ORDERED: VECURONIUM 10 MG ONE (14:28)
[2019-12-13] MEDS ORDERED: FUROSEMIDE 40 MG/4 ML IV ONE (14:30)
[2019-12-13] MEDS ORDERED: VECURONIUM 10 MG IVPush ONE (14:30)
[2019-12-13] MEDS: ACETAMINOPHEN 325 MG TABLET PO PRN (16:01)
[2019-12-13] MEDS: NOREPINEPHRINE 8 MG in SODIUM CHLORIDE 0.9% 242 ML IV PRN (17:00)
[2019-12-13 21:15] VITALS: BP 122/67
[2019-12-13 21:30] VITALS: BP 124/65
[2019-12-13 22:42] VITALS: BP 118/58
[2019-12-13 23:45] VITALS: BP 113/63
[2019-12-14] MEDS: INSULIN LISPRO 100 UNITS/ML, PEN SQ-INSULIN SCH ×5 (00:11→17:13)
[2019-12-14] MEDS: PROPOFOL 100 ML IV PRN ×4 (01:49→23:53)
[2019-12-14] MEDS: ALBUTEROL/IPRATROPIUM 2.5MG/0.5MG, 3 ML INLINE SCH ×6 (02:36→22:18)
[2019-12-14] MEDS: FENTANYL PF 2,500 MCG in SODIUM CHLORIDE 0.9% 200 ML IV PRN ×2 (02:40→21:18)
[2019-12-14] MEDS: MIDAZOLAM 1 MG/ML, 2ML IVPush PRN (02:40)
[2019-12-14 05:06] LABS: ANION GAP 7 mmol/L (5-15); CALCIUM 9.4 mg/dL (8.5-10.1); CHLORIDE 115 mmol/L (98-107); CREATININE 1.84 mg/dL (0.7-1.3); TRIGLYCERIDES 185 mg/dL (50-200)
[2019-12-14 05:45] LABS: BASOPHILS % (AUTO) 0 % (0-1); EOSINOPHILS % (AUTO) 1 % (1-7); LYMPHOCYTES % (AUTO) 11 % (22-44); MEAN CORPUSCULAR HEMOGLOBIN 29.9 pg (27.5-34.5); MEAN CORPUSCULAR HGB CONC 33.1 g/dL (33.2-36.2); MEAN PLATELET VOLUME 8.9 fL (7.4-10.4); MONOCYTES % (AUTO) 11 % (2-9); NEUTROPHILS % (AUTO) 78 % (42-75); PLATELET COUNT 251 x10^3/uL (130-400); RED CELL DISTRIBUTION WIDTH 13.8 % (9.4-14.8)
[2019-12-14 05:54] LABS: MD NO
[2019-12-14] MEDS: ENOXAPARIN 40 MG/0.4 ML SQ SCH ×2 (08:34→20:33)
[2019-12-14] MEDS: PANTOPRAZOLE 40 MG IV IVPush SCH (08:34)
[2019-12-14] MEDS: CHOLECALCIFEROL 1,000 UNIT TABLET PO SCH (08:34)
[2019-12-14] MEDS: SODIUM CHLORIDE FLUSH 10ML SYR IVF SCH ×2 (08:34→20:35)
[2019-12-14] MEDS: ZINC SULFATE 220 MG CAPSULE PO SCH (08:35)
[2019-12-14] MEDS: DOXYCYCLINE 100MG CAP PO SCH (08:35)
[2019-12-14] MEDS: QUETIAPINE 25MG TABLET PO SCH ×3 (08:35→20:33)
[2019-12-14] MEDS: ASCORBIC ACID 500 MG TABLET PO SCH ×2 (08:35→20:32)
[2019-12-14] MEDS: INSULIN GLARGINE 100 UNITS/ML, PEN SQ-INSULIN SCH ×2 (09:27→20:34)
[2019-12-15] MEDS: ALBUTEROL/IPRATROPIUM 2.5MG/0.5MG, 3 ML INLINE SCH ×6 (02:27→23:00)
[2019-12-15] MEDS: NOREPINEPHRINE 8 MG in SODIUM CHLORIDE 0.9% 242 ML IV PRN (04:03)
[2019-12-15] MEDS: PROPOFOL 100 ML IV PRN ×5 (04:04→20:27)
[2019-12-15 04:36] LABS: BASOPHILS % (AUTO) 0 % (0-1); EOSINOPHILS % (AUTO) 1 % (1-7); LYMPHOCYTES % (AUTO) 12 % (22-44); MEAN CORPUSCULAR HGB CONC 35.2 g/dL (33.2-36.2); MEAN PLATELET VOLUME 8.4 fL (7.4-10.4); MONOCYTES % (AUTO) 10 % (2-9); NEUTROPHILS % (AUTO) 78 % (42-75); PLATELET COUNT 274 x10^3/uL (130-400); RED BLOOD COUNT 2.59 x10^6/uL (4.38-5.82); RED CELL DISTRIBUTION WIDTH 13.7 % (9.4-14.8)
[2019-12-15 04:38] LABS: MD NO
[2019-12-15 04:45] LABS: ANION GAP 6 mmol/L (5-15); CALCIUM 8.6 mg/dL (8.5-10.1); CHLORIDE 113 mmol/L (98-107)
[2019-12-15 04:48] LABS: CREATININE 1.58 mg/dL (0.7-1.3)
[2019-12-15] MEDS: INSULIN LISPRO 100 UNITS/ML, PEN SQ-INSULIN SCH ×3 (06:00→17:26)
[2019-12-15] MEDS: SODIUM CHLORIDE FLUSH 10ML SYR IVF SCH ×2 (09:39→20:09)
[2019-12-15] MEDS: CHOLECALCIFEROL 1,000 UNIT TABLET PO SCH (09:40)
[2019-12-15] MEDS: PANTOPRAZOLE 40 MG IV IVPush SCH (09:40)
[2019-12-15] MEDS: ZINC SULFATE 220 MG CAPSULE PO SCH (09:40)
[2019-12-15] MEDS: QUETIAPINE 25MG TABLET PO SCH ×3 (09:41→20:08)
[2019-12-15] MEDS: ASCORBIC ACID 500 MG TABLET PO SCH ×2 (09:41→20:09)
[2019-12-15] MEDS: ENOXAPARIN 40 MG/0.4 ML SQ SCH ×2 (09:42→20:00)
[2019-12-15] MEDS: INSULIN GLARGINE 100 UNITS/ML, PEN SQ-INSULIN SCH ×2 (09:53→21:50)
--- NOTE | 2019-12-15 15:05 | NUR ---
12/14-TF GOAL: w/ propofol: VITAL AF 1.2 @ 50ML/HR
[2019-12-15] MEDS: FENTANYL PF 2,500 MCG in SODIUM CHLORIDE 0.9% 200 ML IV PRN (15:36)
[2019-12-15] MEDS: SENNA/DOCUSATE TABLET PO PRN (20:08)
[2019-12-15] MEDS: ACETAMINOPHEN 325 MG TABLET PO PRN (20:09)
[2019-12-15] MEDS: LIDOCAINE-MPF 1%, 2ML ENDO PRN (23:00)
[2019-12-16] MEDS: PROPOFOL 100 ML IV PRN ×5 (00:56→20:23)
[2019-12-16] MEDS: ALBUTEROL/IPRATROPIUM 2.5MG/0.5MG, 3 ML INLINE SCH ×6 (03:20→22:00)
[2019-12-16] MEDS: LIDOCAINE-MPF 1%, 2ML ENDO PRN ×2 (03:30→21:51)
[2019-12-16 05:12] LABS: BASOPHILS % (AUTO) 0 % (0-1); EOSINOPHILS % (AUTO) 2 % (1-7); LYMPHOCYTES % (AUTO) 8 % (22-44); MEAN CORPUSCULAR HEMOGLOBIN 32.8 pg (27.5-34.5); MEAN CORPUSCULAR HGB CONC 35.7 g/dL (33.2-36.2); MEAN PLATELET VOLUME 8.8 fL (7.4-10.4); MONOCYTES % (AUTO) 0 % (2-9); NEUTROPHILS % (AUTO) 90 % (42-75); PLATELET COUNT 265 x10^3/uL (130-400); RED BLOOD COUNT 2.54 x10^6/uL (4.38-5.82); RED CELL DISTRIBUTION WIDTH 13.5 % (9.4-14.8)
[2019-12-16 05:49] LABS: ANION GAP 5 mmol/L (5-15); CALCIUM 8.6 mg/dL (8.5-10.1); CHLORIDE 115 mmol/L (98-107); CREATININE 1.65 mg/dL (0.7-1.3)
[2019-12-16] MEDS: INSULIN LISPRO 100 UNITS/ML, PEN SQ-INSULIN SCH ×5 (06:00→23:00)
[2019-12-16 06:16] LABS: MD SCAN
[2019-12-16] MEDS: FENTANYL PF 2,500 MCG in SODIUM CHLORIDE 0.9% 200 ML IV PRN ×2 (07:35→22:24)
[2019-12-16] MEDS: ENOXAPARIN 40 MG/0.4 ML SQ SCH ×2 (10:39→20:00)
[2019-12-16] MEDS: QUETIAPINE 25MG TABLET PO SCH ×3 (10:40→20:10)
[2019-12-16] MEDS: PANTOPRAZOLE 40 MG IV IVPush SCH (10:40)
[2019-12-16] MEDS: ASCORBIC ACID 500 MG TABLET PO SCH ×2 (10:40→20:10)
[2019-12-16] MEDS: CHOLECALCIFEROL 1,000 UNIT TABLET PO SCH (10:41)
[2019-12-16] MEDS: ZINC SULFATE 220 MG CAPSULE PO SCH (10:41)
[2019-12-16] MEDS: SODIUM CHLORIDE FLUSH 10ML SYR IVF SCH ×2 (10:43→20:11)
[2019-12-16] MEDS: INSULIN GLARGINE 100 UNITS/ML, PEN SQ-INSULIN SCH ×2 (10:53→23:00)
[2019-12-16] MEDS: MIDAZOLAM 1 MG/ML, 2ML IVPush PRN (14:48)
[2019-12-16] MEDS: ACETAMINOPHEN 325 MG TABLET PO PRN ×2 (16:04→20:10)
[2019-12-16] MEDS: SENNA/DOCUSATE TABLET NG PRN (20:10)
[2019-12-17] MEDS: PROPOFOL 100 ML IV PRN ×2 (01:57→05:03)
[2019-12-17] MEDS: ALBUTEROL/IPRATROPIUM 2.5MG/0.5MG, 3 ML INLINE SCH ×6 (03:00→22:24)
[2019-12-17 04:39] LABS: ANION GAP 5 mmol/L (5-15); CALCIUM 8.5 mg/dL (8.5-10.1); CHLORIDE 116 mmol/L (98-107); CREATININE 1.79 mg/dL (0.7-1.3); TRIGLYCERIDES 690 mg/dL (50-200)
[2019-12-17] MEDS: INSULIN LISPRO 100 UNITS/ML, PEN SQ-INSULIN SCH ×3 (05:00→17:00)
[2019-12-17 05:02] LABS: BASOPHILS % (AUTO) 0 % (0-1); EOSINOPHILS % (AUTO) 1 % (1-7); LYMPHOCYTES % (AUTO) 9 % (22-44); MEAN CORPUSCULAR HEMOGLOBIN 30.7 pg (27.5-34.5); MEAN CORPUSCULAR HGB CONC 33.4 g/dL (33.2-36.2); MEAN PLATELET VOLUME 8.5 fL (7.4-10.4); MONOCYTES % (AUTO) 10 % (2-9); NEUTROPHILS % (AUTO) 80 % (42-75); PLATELET COUNT 256 x10^3/uL (130-400); RED BLOOD COUNT 2.49 x10^6/uL (4.38-5.82); RED CELL DISTRIBUTION WIDTH 13.6 % (9.4-14.8)
[2019-12-17 06:25] LABS: MD SCAN
[2019-12-17] MEDS: MIDAZOLAM 1 MG/ML, 2ML IVPush PRN ×2 (08:16→10:40)
[2019-12-17] MEDS: PANTOPRAZOLE 40 MG IV IVPush SCH (08:16)
[2019-12-17] MEDS: ENOXAPARIN 40 MG/0.4 ML SQ SCH ×2 (08:16→20:00)
[2019-12-17] MEDS: FENTANYL PF 2,500 MCG in SODIUM CHLORIDE 0.9% 200 ML IV PRN ×2 (08:17→17:25)
[2019-12-17] MEDS: CHOLECALCIFEROL 1,000 UNIT TABLET PO SCH (08:18)
[2019-12-17] MEDS: ASCORBIC ACID 500 MG TABLET PO SCH ×2 (08:18→20:10)
[2019-12-17] MEDS: SODIUM CHLORIDE FLUSH 10ML SYR IVF SCH ×2 (08:18→20:10)
[2019-12-17] MEDS: QUETIAPINE 25MG TABLET PO SCH ×3 (08:19→20:10)
[2019-12-17] MEDS: ZINC SULFATE 220 MG CAPSULE PO SCH (09:00)
[2019-12-17] MEDS: INSULIN GLARGINE 100 UNITS/ML, PEN SQ-INSULIN SCH ×2 (10:49→20:21)
[2019-12-17] MEDS ORDERED: FUROSEMIDE 40 MG/4 ML IV ONE (11:00)
[2019-12-17] MEDS: MIDAZOLAM HCL 50 MG in SODIUM CHLORIDE 0.9% 40 ML IV PRN ×2 (11:18→20:20)
[2019-12-17] MEDS: ACETAMINOPHEN 325 MG TABLET PO PRN ×2 (17:20→20:10)
[2019-12-17] MEDS: SENNA/DOCUSATE TABLET NG PRN (20:10)
[2019-12-18] MEDS: ACETAMINOPHEN 325 MG TABLET PO PRN ×4 (00:08→20:47)
[2019-12-18] MEDS: INSULIN LISPRO 100 UNITS/ML, PEN SQ-INSULIN SCH ×5 (00:10→20:50)
[2019-12-18] MEDS: FENTANYL PF 2,500 MCG in SODIUM CHLORIDE 0.9% 200 ML IV PRN ×2 (02:05→11:15)
[2019-12-18] MEDS: ALBUTEROL/IPRATROPIUM 2.5MG/0.5MG, 3 ML INLINE SCH ×6 (03:00→22:00)
[2019-12-18 04:52] LABS: BASOPHILS % (AUTO) 1 % (0-1); EOSINOPHILS % (AUTO) 1 % (1-7); LYMPHOCYTES % (AUTO) 7 % (22-44); MEAN CORPUSCULAR HEMOGLOBIN 29.6 pg (27.5-34.5); MEAN CORPUSCULAR HGB CONC 32.1 g/dL (33.2-36.2); MEAN PLATELET VOLUME 8.1 fL (7.4-10.4); MONOCYTES % (AUTO) 11 % (2-9); NEUTROPHILS % (AUTO) 79 % (42-75); PLATELET COUNT 264 x10^3/uL (130-400); RED BLOOD COUNT 2.42 x10^6/uL (4.38-5.82); RED CELL DISTRIBUTION WIDTH 13.6 % (9.4-14.8)
[2019-12-18 05:01] LABS: ANION GAP 2 mmol/L (5-15); CALCIUM 8.7 mg/dL (8.5-10.1); CHLORIDE 119 mmol/L (98-107)
[2019-12-18 05:09] LABS: CREATININE 1.69 mg/dL (0.7-1.3); TROPONIN I < 0.015 ng/mL (0.000-0.045)
[2019-12-18 05:41] LABS: MD SCAN
[2019-12-18] MEDS: SODIUM CHLORIDE FLUSH 10ML SYR IVF SCH ×2 (07:49→20:48)
[2019-12-18] MEDS: ZINC SULFATE 220 MG CAPSULE PO SCH (07:50)
[2019-12-18] MEDS: ENOXAPARIN 40 MG/0.4 ML SQ SCH ×2 (07:50→20:46)
[2019-12-18] MEDS: CHOLECALCIFEROL 1,000 UNIT TABLET PO SCH (07:50)
[2019-12-18] MEDS: QUETIAPINE 25MG TABLET PO SCH ×3 (07:50→20:47)
[2019-12-18] MEDS: ASCORBIC ACID 500 MG TABLET PO SCH ×2 (07:50→20:47)
[2019-12-18] MEDS: PANTOPRAZOLE 40 MG IV IVPush SCH (07:50)
[2019-12-18] MEDS: INSULIN GLARGINE 100 UNITS/ML, PEN SQ-INSULIN SCH ×2 (07:51→20:50)
[2019-12-18] MEDS: MIDAZOLAM HCL 50 MG in SODIUM CHLORIDE 0.9% 40 ML IV PRN ×2 (08:28→23:23)
[2019-12-18] MEDS ORDERED: FUROSEMIDE 40 MG/4 ML ONE (17:55)
[2019-12-18] MEDS ORDERED: FUROSEMIDE 100 MG/10 ML IV ONE (18:00)
[2019-12-18] MEDS ORDERED: IBUPROFEN 200 MG TABLET ONE (20:15)
[2019-12-18] MEDS: SENNA/DOCUSATE TABLET NG PRN (20:47)
[2019-12-19] MEDS: FENTANYL PF 2,500 MCG in SODIUM CHLORIDE 0.9% 200 ML IV PRN ×2 (00:01→16:51)
[2019-12-19] MEDS: ACETAMINOPHEN 325 MG TABLET PO PRN ×2 (00:24→10:10)
[2019-12-19] MEDS: ALBUTEROL/IPRATROPIUM 2.5MG/0.5MG, 3 ML INLINE SCH ×6 (02:20→22:35)
[2019-12-19] MEDS: INSULIN LISPRO 100 UNITS/ML, PEN SQ-INSULIN SCH ×4 (03:00→21:17)
[2019-12-19 04:30] LABS: ANION GAP 5 mmol/L (5-15); CALCIUM 8.9 mg/dL (8.5-10.1); CHLORIDE 122 mmol/L (98-107); CREATININE 2.05 mg/dL (0.7-1.3)
[2019-12-19 04:32] LABS: BASOPHILS % (AUTO) 1 % (0-1); EOSINOPHILS % (AUTO) 1 % (1-7); LYMPHOCYTES % (AUTO) 13 % (22-44); MEAN CORPUSCULAR HEMOGLOBIN 29.9 pg (27.5-34.5); MEAN CORPUSCULAR HGB CONC 32.6 g/dL (33.2-36.2); MONOCYTES % (AUTO) 10 % (2-9); NEUTROPHILS % (AUTO) 76 % (42-75); PLATELET COUNT 254 x10^3/uL (130-400); RED CELL DISTRIBUTION WIDTH 13.6 % (9.4-14.8)
[2019-12-19 04:34] LABS: MD NO
[2019-12-19 06:10] LABS: % IRON SATURATION 13 % (20-55); IRON LEVEL 15 mcg/dL (65-175); TOTAL IRON BINDING CAPACITY 114 mcg/dL (250-450)
[2019-12-19] MEDS ORDERED: DEXTROSE 5% 1,000 ML IV SCH (06:30)
[2019-12-19] MEDS: INSULIN GLARGINE 100 UNITS/ML, PEN SQ-INSULIN SCH ×2 (07:52→21:17)
[2019-12-19] MEDS: ZINC SULFATE 220 MG CAPSULE PO SCH (10:10)
[2019-12-19] MEDS: PANTOPRAZOLE 40 MG IV IVPush SCH ×2 (10:10→21:16)
[2019-12-19] MEDS: ASCORBIC ACID 500 MG TABLET PO SCH ×2 (10:10→21:15)
[2019-12-19] MEDS: QUETIAPINE 25MG TABLET PO SCH ×3 (10:10→21:16)
[2019-12-19] MEDS: CHOLECALCIFEROL 1,000 UNIT TABLET PO SCH (10:11)
[2019-12-19] MEDS: SODIUM CHLORIDE FLUSH 10ML SYR IVF SCH ×2 (10:11→22:04)
[2019-12-19 10:54] VITALS: BP 124/67
[2019-12-19 11:10] VITALS: BP 125/64
[2019-12-19 12:30] VITALS: BP 130/69
[2019-12-19] MEDS ORDERED: SODIUM CHLORIDE 0.45% 1,000 ML IV ONE ×2 (14:00→14:12)
[2019-12-19 14:21] VITALS: BP 137/69
[2019-12-19 15:35] LABS: MICROSCOPIC INDICATED
[2019-12-19] MEDS: MIDAZOLAM HCL 50 MG in SODIUM CHLORIDE 0.9% 40 ML IV PRN (16:51)
[2019-12-19] MEDS ORDERED: VANCOMYCIN PER PHARMACY MC PRN (18:00)
[2019-12-19] MEDS ORDERED: PHARMACOKINETIC MONITORING MC PRN (19:00)
[2019-12-19] MEDS ORDERED: VANCOMYCIN 1,700 MG in SODIUM CHLORIDE 0.9% 250 ML IV ONE (19:00)
[2019-12-19] MEDS: MEROPENEM 1 GM in SODIUM CHLORIDE 0.9% 100 ML IV SCH (21:07)
[2019-12-20] MEDS: ALBUTEROL/IPRATROPIUM 2.5MG/0.5MG, 3 ML INLINE SCH ×6 (01:58→22:38)
[2019-12-20] MEDS: INSULIN LISPRO 100 UNITS/ML, PEN SQ-INSULIN SCH ×4 (03:32→20:59)
[2019-12-20 04:10] LABS: BASOPHILS % (AUTO) 1 % (0-1); EOSINOPHILS % (AUTO) 1 % (1-7); LYMPHOCYTES % (AUTO) 7 % (22-44); MEAN CORPUSCULAR HGB CONC 31.9 g/dL (33.2-36.2); MEAN PLATELET VOLUME 8.1 fL (7.4-10.4); MONOCYTES % (AUTO) 7 % (2-9); NEUTROPHILS % (AUTO) 85 % (42-75); PLATELET COUNT 256 x10^3/uL (130-400); RED BLOOD COUNT 2.88 x10^6/uL (4.38-5.82); RED CELL DISTRIBUTION WIDTH 14.2 % (9.4-14.8)
[2019-12-20 04:18] LABS: MD NO
[2019-12-20 04:21] LABS: ANION GAP 3 mmol/L (5-15); CALCIUM 8.9 mg/dL (8.5-10.1); CHLORIDE 122 mmol/L (98-107); CREATININE 1.76 mg/dL (0.7-1.3); TRIGLYCERIDES 150 mg/dL (50-200)
[2019-12-20] MEDS: MIDAZOLAM HCL 50 MG in SODIUM CHLORIDE 0.9% 40 ML IV PRN ×2 (06:00→22:09)
[2019-12-20] MEDS: FENTANYL PF 2,500 MCG in SODIUM CHLORIDE 0.9% 200 ML IV PRN ×2 (06:00→22:08)
[2019-12-20] MEDS: MEROPENEM 1 GM in SODIUM CHLORIDE 0.9% 100 ML IV SCH ×2 (09:35→20:58)
[2019-12-20] MEDS: SODIUM CHLORIDE FLUSH 10ML SYR IVF SCH ×2 (09:37→20:59)
[2019-12-20] MEDS: PANTOPRAZOLE 40 MG IV IVPush SCH ×2 (09:37→20:59)
[2019-12-20] MEDS: QUETIAPINE 25MG TABLET PO SCH ×3 (09:40→20:59)
[2019-12-20] MEDS: CHOLECALCIFEROL 1,000 UNIT TABLET PO SCH (09:40)
[2019-12-20] MEDS: ASCORBIC ACID 500 MG TABLET PO SCH ×2 (09:40→20:59)
[2019-12-20] MEDS: ACETAMINOPHEN 325 MG TABLET PO PRN (09:40)
[2019-12-20] MEDS: ZINC SULFATE 220 MG CAPSULE PO SCH (09:40)
[2019-12-20] MEDS: INSULIN GLARGINE 100 UNITS/ML, PEN SQ-INSULIN SCH ×2 (09:41→21:00)
--- NOTE | 2019-12-20 11:45 | NUR ---
12/19-TF GOAL: NEPRO @ 55ML/HR
[2019-12-21] MEDS: ALBUTEROL/IPRATROPIUM 2.5MG/0.5MG, 3 ML INLINE SCH ×6 (03:00→22:35)
[2019-12-21] MEDS: INSULIN LISPRO 100 UNITS/ML, PEN SQ-INSULIN SCH ×4 (04:00→21:00)
[2019-12-21 04:43] LABS: BASOPHILS % (AUTO) 1 % (0-1); EOSINOPHILS % (AUTO) 3 % (1-7); LYMPHOCYTES % (AUTO) 13 % (22-44); MEAN CORPUSCULAR HEMOGLOBIN 29.3 pg (27.5-34.5); MEAN CORPUSCULAR HGB CONC 32.2 g/dL (33.2-36.2); MEAN PLATELET VOLUME 7.9 fL (7.4-10.4); MONOCYTES % (AUTO) 8 % (2-9); NEUTROPHILS % (AUTO) 75 % (42-75); PLATELET COUNT 230 x10^3/uL (130-400); RED BLOOD COUNT 2.65 x10^6/uL (4.38-5.82); RED CELL DISTRIBUTION WIDTH 14.4 % (9.4-14.8)
[2019-12-21 04:44] LABS: MD NO
[2019-12-21 04:55] LABS: ANION GAP 1 mmol/L (5-15); CALCIUM 9.5 mg/dL (8.5-10.1); CHLORIDE 122 mmol/L (98-107); CREATININE 1.95 mg/dL (0.7-1.3)
[2019-12-21] MEDS ORDERED: VANCOMYCIN 1,500 MG in SODIUM CHLORIDE 0.9% 250 ML IV SCH (07:00)
[2019-12-21] MEDS: MEROPENEM 1 GM in SODIUM CHLORIDE 0.9% 100 ML IV SCH ×2 (09:56→20:42)
[2019-12-21] MEDS: PANTOPRAZOLE 40 MG IV IVPush SCH ×2 (09:56→20:42)
[2019-12-21] MEDS: CHOLECALCIFEROL 1,000 UNIT TABLET PO SCH (09:57)
[2019-12-21] MEDS: ZINC SULFATE 220 MG CAPSULE PO SCH (09:57)
[2019-12-21] MEDS: ASCORBIC ACID 500 MG TABLET PO SCH ×2 (09:57→20:43)
[2019-12-21] MEDS: QUETIAPINE 25MG TABLET PO SCH ×3 (09:57→20:43)
[2019-12-21] MEDS: SODIUM CHLORIDE FLUSH 10ML SYR IVF SCH ×2 (09:58→20:44)
[2019-12-21] MEDS: SODIUM CHLORIDE 0.45% 1,000 ML IV SCH ×2 (09:59→22:53)
[2019-12-21] MEDS: INSULIN GLARGINE 100 UNITS/ML, PEN SQ-INSULIN SCH ×2 (10:12→22:50)
[2019-12-21] MEDS: MIDAZOLAM HCL 50 MG in SODIUM CHLORIDE 0.9% 40 ML IV PRN (11:18)
[2019-12-21] MEDS: FENTANYL PF 2,500 MCG in SODIUM CHLORIDE 0.9% 200 ML IV PRN (11:19)
[2019-12-21] MEDS: ACETAMINOPHEN 325 MG TABLET PO PRN ×2 (15:53→20:43)
[2019-12-21] MEDS: SENNA/DOCUSATE TABLET PO PRN (20:43)
[2019-12-21] MEDS: POLYETHYLENE GLYCOL 17 GM PACKET PO PRN (20:43)
[2019-12-22] MEDS: ALBUTEROL/IPRATROPIUM 2.5MG/0.5MG, 3 ML INLINE SCH ×6 (02:33→21:57)
[2019-12-22] MEDS: MIDAZOLAM HCL 50 MG in SODIUM CHLORIDE 0.9% 40 ML IV PRN ×2 (04:44→11:56)
[2019-12-22] MEDS: INSULIN LISPRO 100 UNITS/ML, PEN SQ-INSULIN SCH ×4 (04:44→23:10)
[2019-12-22 05:28] LABS: MEAN CORPUSCULAR HEMOGLOBIN 29.2 pg (27.5-34.5); MEAN CORPUSCULAR HGB CONC 31.8 g/dL (33.2-36.2); MEAN PLATELET VOLUME 8.5 fL (7.4-10.4); PLATELET COUNT 217 x10^3/uL (130-400); RED BLOOD COUNT 2.52 x10^6/uL (4.38-5.82); RED CELL DISTRIBUTION WIDTH 13.6 % (9.4-14.8)
[2019-12-22 05:31] LABS: ANION GAP 3 mmol/L (5-15); CALCIUM 9.5 mg/dL (8.5-10.1); CHLORIDE 117 mmol/L (98-107)
[2019-12-22 05:32] LABS: CREATININE 1.68 mg/dL (0.7-1.3)
[2019-12-22 06:09] LABS: MD YES
[2019-12-22 06:11] LABS: BAND#(MANUAL) 0.41 x10^3/uL; BANDS%(MANUAL) 4 % (0-7); EOS#(MANUAL) 0.31 x10^3/uL (0.0-0.4); EOS% (MANUAL) 3 % (1-7); LYMPH#(MANUAL) 0.93 x10^3/uL (1-3.4); LYMPHS% (MANUAL) 9 % (22-44); METAMYELOCYTES% (MANUAL) 1 % (0-1); MONOS#(MANUAL) 0.62 x10^3/uL (0.3-2.7); MONOS% (MANUAL) 6 % (2-9); SEG#(MANUAL) 7.93 x10^3/uL (1.8-6.8); SEGS% (MANUAL) 77 % (42-75)
[2019-12-22 06:12] LABS: <PLATELET ESTIMATE> ADEQUATE; <PLT MORPHOLOGY> NORMAL PLT MORPH; HYPOCHROMIA 1+; POLYCHROMASIA 1+
[2019-12-22] MEDS: PANTOPRAZOLE 40 MG IV IVPush SCH ×2 (08:29→20:46)
[2019-12-22] MEDS: SODIUM CHLORIDE FLUSH 10ML SYR IVF SCH ×2 (08:29→20:46)
[2019-12-22] MEDS: MEROPENEM 1 GM in SODIUM CHLORIDE 0.9% 100 ML IV SCH ×2 (08:29→23:09)
[2019-12-22] MEDS: ASCORBIC ACID 500 MG TABLET PO SCH ×2 (08:30→20:46)
[2019-12-22] MEDS: CHOLECALCIFEROL 1,000 UNIT TABLET PO SCH (08:30)
[2019-12-22] MEDS: ZINC SULFATE 220 MG CAPSULE PO SCH (08:30)
[2019-12-22] MEDS: QUETIAPINE 25MG TABLET PO SCH ×3 (08:30→20:46)
[2019-12-22] MEDS: INSULIN GLARGINE 100 UNITS/ML, PEN SQ-INSULIN SCH ×2 (08:31→23:09)
[2019-12-22] MEDS ORDERED: VECURONIUM 10 MG IVPush ONE (10:00)
[2019-12-22] MEDS ORDERED: FUROSEMIDE 100 MG/10 ML IV ONE (10:00)
[2019-12-22] MEDS ORDERED: FUROSEMIDE 40 MG/4 ML ONE (10:03)
[2019-12-22] MEDS: MIDAZOLAM 1 MG/ML, 2ML IVPush PRN (10:14)
[2019-12-22] MEDS: VECURONIUM 50 MG in SODIUM CHLORIDE 0.9% 50 ML IV PRN ×2 (10:28→17:43)
[2019-12-22] MEDS: NOREPINEPHRINE 8 MG in SODIUM CHLORIDE 0.9% 242 ML IV PRN (13:44)
[2019-12-22] MEDS ORDERED: SODIUM BICARB 8.4%, 50ML SYRINGE ONE (14:10)
[2019-12-22] MEDS ORDERED: SODIUM BICARBONATE 1 MEQ/ML, 50ML VIAL IVPush STA (14:20)
[2019-12-22] MEDS ORDERED: SODIUM BICARBONATE 1 MEQ/ML, 50ML VIAL IVPush ONE (15:00)
[2019-12-22] MEDS ORDERED: SODIUM CHLORIDE 0.9%, 500ML IVBOLUS ONE (16:30)
[2019-12-22] MEDS ORDERED: SODIUM BICARB 8.4%, 50ML SYRINGE IVPush STA ×2 (16:48→18:41)
[2019-12-22] MEDS: SODIUM BICARBONATE 8.4% 150 MEQ in DEXTROSE 5% 1,000 ML IV SCH (17:44)
[2019-12-22 18:16] LABS: ALANINE AMINOTRANSFERASE 43 U/L (12-78); ALBUMIN 1.5 g/dL (3.4-5.0); ANION GAP 0 mmol/L (5-15); CALCIUM 8.6 mg/dL (8.5-10.1); CHLORIDE 120 mmol/L (98-107)
[2019-12-22 18:20] LABS: ALKALINE PHOSPHATASE 168 U/L (45-117); BILIRUBIN,TOTAL 0.3 mg/dL (0.2-1.0); CREATININE 2.27 mg/dL (0.7-1.3); TOTAL PROTEIN 6.6 g/dL (6.4-8.2); VANCOMYCIN,TROUGH 11.1 mcg/mL (5.0-10.0)
[2019-12-22] MEDS ORDERED: CALCIUM CHLORIDE 10%, 10ML SYR ONE (18:44)
[2019-12-22] MEDS ORDERED: CALCIUM CHLORIDE 10%, 10ML SYR IVPush ONE (19:00)
[2019-12-22] MEDS ORDERED: SODIUM BICARB 8.4%, 50ML SYRINGE IVPush ONE ×2 (19:00→19:51)
[2019-12-22] MEDS: ACETAMINOPHEN 325 MG TABLET PO PRN (20:45)
[2019-12-22] MEDS: SENNA/DOCUSATE TABLET NG PRN (20:45)
[2019-12-22] MEDS: VANCOMYCIN 1,500 MG in SODIUM CHLORIDE 0.9% 250 ML IV SCH (20:47)
[2019-12-23] MEDS: MIDAZOLAM HCL 50 MG in SODIUM CHLORIDE 0.9% 40 ML IV PRN ×4 (00:56→23:52)
[2019-12-23] MEDS: ALBUTEROL/IPRATROPIUM 2.5MG/0.5MG, 3 ML INLINE SCH ×6 (02:32→22:09)
[2019-12-23] MEDS: INSULIN LISPRO 100 UNITS/ML, PEN SQ-INSULIN SCH ×4 (03:49→20:22)
[2019-12-23 04:12] LABS: MEAN CORPUSCULAR HEMOGLOBIN 28.6 pg (27.5-34.5); MEAN CORPUSCULAR HGB CONC 31.7 g/dL (33.2-36.2); MEAN PLATELET VOLUME 8.3 fL (7.4-10.4); PLATELET COUNT 241 x10^3/uL (130-400); RED BLOOD COUNT 2.71 x10^6/uL (4.38-5.82); RED CELL DISTRIBUTION WIDTH 13.4 % (9.4-14.8)
[2019-12-23 04:21] LABS: ANION GAP 7 mmol/L (5-15); CALCIUM 9.6 mg/dL (8.5-10.1); CHLORIDE 113 mmol/L (98-107); CREATININE 3.03 mg/dL (0.7-1.3); TRIGLYCERIDES 173 mg/dL (50-200)
[2019-12-23 04:33] LABS: MD YES
[2019-12-23 04:35] LABS: BAND#(MANUAL) 0.55 x10^3/uL; BANDS%(MANUAL) 4 % (0-7); EOS#(MANUAL) 0.14 x10^3/uL (0.0-0.4); EOS% (MANUAL) 1 % (1-7); LYMPH#(MANUAL) 0.82 x10^3/uL (1-3.4); LYMPHS% (MANUAL) 6 % (22-44); METAMYELOCYTES# (MANUAL) 0.27 x10^3/uL (0-0); METAMYELOCYTES% (MANUAL) 2 % (0-1); MONOS#(MANUAL) 0.27 x10^3/uL (0.3-2.7); MONOS% (MANUAL) 2 % (2-9); MYELOCYTES# (MANUAL) 0.27 x10^3/uL (0-0); MYELOCYTES% (MANUAL) 2 % (0-0); SEG#(MANUAL) 11.37 x10^3/uL (1.8-6.8); SEGS% (MANUAL) 83 % (42-75)
[2019-12-23 04:36] LABS: <PLATELET ESTIMATE> ADEQUATE; <PLT MORPHOLOGY> NORMAL PLT MORPH; POLYCHROMASIA 1+
[2019-12-23] MEDS: NOREPINEPHRINE 8 MG in SODIUM CHLORIDE 0.9% 242 ML IV PRN (05:14)
[2019-12-23] MEDS ORDERED: INSULIN REGULAR 100 UNITS/ML, 3ML VIAL IVPush ONE (07:00)
[2019-12-23] MEDS ORDERED: DEXTROSE 50%, 50ML SYRINGE IVPush ONE (07:00)
[2019-12-23] MEDS: MEROPENEM 1 GM in SODIUM CHLORIDE 0.9% 100 ML IV SCH ×2 (07:52→21:00)
[2019-12-23] MEDS: PANTOPRAZOLE 40 MG IV IVPush SCH ×2 (07:52→20:21)
[2019-12-23] MEDS: SODIUM CHLORIDE FLUSH 10ML SYR IVF SCH ×2 (07:59→20:21)
[2019-12-23] MEDS: QUETIAPINE 25MG TABLET PO SCH ×4 (07:59→20:19)
[2019-12-23] MEDS: ASCORBIC ACID 500 MG TABLET PO SCH ×2 (07:59→20:19)
[2019-12-23] MEDS: CHOLECALCIFEROL 1,000 UNIT TABLET PO SCH (07:59)
[2019-12-23] MEDS: ZINC SULFATE 220 MG CAPSULE PO SCH (08:00)
[2019-12-23] MEDS: VECURONIUM 50 MG in SODIUM CHLORIDE 0.9% 50 ML IV PRN ×2 (08:52→15:16)
[2019-12-23] MEDS: SODIUM BICARBONATE 8.4% 150 MEQ in DEXTROSE 5% 1,000 ML IV SCH (09:58)
[2019-12-23] MEDS ORDERED: FUROSEMIDE 40 MG/4 ML IV ONE (10:00)
[2019-12-23] MEDS: FENTANYL PF 2,500 MCG in SODIUM CHLORIDE 0.9% 200 ML IV PRN (11:47)
[2019-12-23 15:02] LABS: ANION GAP 3 mmol/L (5-15); CALCIUM 9.4 mg/dL (8.5-10.1); CHLORIDE 115 mmol/L (98-107); CREATININE 3.67 mg/dL (0.7-1.3)
[2019-12-23] MEDS: ACETAMINOPHEN 325 MG TABLET PO PRN (20:19)
[2019-12-23] MEDS ORDERED: ALBUMIN HUMAN 25% 300 ML ONE (21:47)
[2019-12-23] MEDS ORDERED: ALBUMIN HUMAN 25% 50 ML IV PRN (22:30)
[2019-12-24] MEDS: VECURONIUM 50 MG in SODIUM CHLORIDE 0.9% 50 ML IV PRN ×2 (01:20→09:37)
[2019-12-24] MEDS: SODIUM BICARBONATE 8.4% 150 MEQ in DEXTROSE 5% 1,000 ML IV SCH ×2 (01:20→15:40)
[2019-12-24] MEDS: INSULIN LISPRO 100 UNITS/ML, PEN SQ-INSULIN SCH ×4 (03:00→21:00)
[2019-12-24] MEDS: ALBUTEROL/IPRATROPIUM 2.5MG/0.5MG, 3 ML INLINE SCH ×6 (03:00→22:35)
[2019-12-24] MEDS: FENTANYL PF 2,500 MCG in SODIUM CHLORIDE 0.9% 200 ML IV PRN ×2 (03:58→18:15)
[2019-12-24 04:18] LABS: BASOPHILS % (AUTO) 1 % (0-1); EOSINOPHILS % (AUTO) 7 % (1-7); LYMPHOCYTES % (AUTO) 13 % (22-44); MEAN CORPUSCULAR HEMOGLOBIN 29.8 pg (27.5-34.5); MEAN CORPUSCULAR HGB CONC 33.1 g/dL (33.2-36.2); MEAN PLATELET VOLUME 8.3 fL (7.4-10.4); MONOCYTES % (AUTO) 7 % (2-9); NEUTROPHILS % (AUTO) 72 % (42-75); PLATELET COUNT 197 x10^3/uL (130-400); RED BLOOD COUNT 2.32 x10^6/uL (4.38-5.82); RED CELL DISTRIBUTION WIDTH 13.4 % (9.4-14.8)
[2019-12-24 04:21] LABS: MD NO
[2019-12-24 04:23] LABS: ALANINE AMINOTRANSFERASE 27 U/L (12-78); ALBUMIN 2.7 g/dL (3.4-5.0); ANION GAP 4 mmol/L (5-15); BILIRUBIN, DIRECT 0.4 mg/dL (0.1-0.2); CALCIUM 8.1 mg/dL (8.5-10.1); CHLORIDE 105 mmol/L (98-107); CREATININE 2.17 mg/dL (0.7-1.3)
[2019-12-24 04:25] LABS: ALKALINE PHOSPHATASE 105 U/L (45-117); BILIRUBIN,INDIRECT 0.2 mg/dL (0.0-2.0); BILIRUBIN,TOTAL 0.6 mg/dL (0.2-1.0); TOTAL PROTEIN 7.1 g/dL (6.4-8.2)
[2019-12-24] MEDS: MIDAZOLAM HCL 50 MG in SODIUM CHLORIDE 0.9% 40 ML IV PRN ×3 (05:44→22:47)
[2019-12-24] MEDS: VANCOMYCIN 1,500 MG in SODIUM CHLORIDE 0.9% 250 ML IV SCH (07:53)
[2019-12-24 09:08] VITALS: BP 134/67
[2019-12-24] MEDS: MEROPENEM 1 GM in SODIUM CHLORIDE 0.9% 100 ML IV SCH ×2 (09:09→22:15)
[2019-12-24] MEDS: ZINC SULFATE 220 MG CAPSULE PO SCH (09:10)
[2019-12-24] MEDS: QUETIAPINE 25MG TABLET PO SCH ×3 (09:10→22:15)
[2019-12-24] MEDS: CHOLECALCIFEROL 1,000 UNIT TABLET PO SCH (09:10)
[2019-12-24] MEDS: SODIUM CHLORIDE FLUSH 10ML SYR IVF SCH ×2 (09:10→22:16)
[2019-12-24] MEDS: PANTOPRAZOLE 40 MG IV IVPush SCH ×2 (09:10→22:15)
[2019-12-24] MEDS: ASCORBIC ACID 500 MG TABLET PO SCH ×2 (09:11→22:15)
[2019-12-24 09:26] VITALS: BP 130/66
[2019-12-24 11:00] VITALS: BP 131/70
[2019-12-24 12:15] VITALS: BP 130/71
[2019-12-25] MEDS: MIDAZOLAM HCL 50 MG in SODIUM CHLORIDE 0.9% 40 ML IV PRN ×4 (02:59→20:49)
[2019-12-25] MEDS: INSULIN LISPRO 100 UNITS/ML, PEN SQ-INSULIN SCH ×4 (03:00→20:38)
[2019-12-25] MEDS: ALBUTEROL/IPRATROPIUM 2.5MG/0.5MG, 3 ML INLINE SCH ×6 (03:00→22:35)
[2019-12-25 04:54] LABS: BASOPHILS % (AUTO) 1 % (0-1); EOSINOPHILS % (AUTO) 9 % (1-7); LYMPHOCYTES % (AUTO) 12 % (22-44); MEAN CORPUSCULAR HEMOGLOBIN 29.9 pg (27.5-34.5); MEAN CORPUSCULAR HGB CONC 33.7 g/dL (33.2-36.2); MEAN PLATELET VOLUME 8.1 fL (7.4-10.4); MONOCYTES % (AUTO) 10 % (2-9); NEUTROPHILS % (AUTO) 69 % (42-75); PLATELET COUNT 206 x10^3/uL (130-400); RED BLOOD COUNT 2.73 x10^6/uL (4.38-5.82); RED CELL DISTRIBUTION WIDTH 13.2 % (9.4-14.8)
[2019-12-25 05:00] LABS: ANION GAP 2 mmol/L (5-15); CALCIUM 7.6 mg/dL (8.5-10.1); CHLORIDE 106 mmol/L (98-107); CREATININE 2.49 mg/dL (0.7-1.3)
[2019-12-25 05:06] LABS: MD NO
[2019-12-25] MEDS: SODIUM BICARBONATE 8.4% 150 MEQ in DEXTROSE 5% 1,000 ML IV SCH (06:41)
[2019-12-25] MEDS: ASCORBIC ACID 500 MG TABLET PO SCH ×2 (09:44→20:49)
[2019-12-25] MEDS: ZINC SULFATE 220 MG CAPSULE PO SCH (09:44)
[2019-12-25] MEDS: QUETIAPINE 25MG TABLET PO SCH ×3 (09:44→20:49)
[2019-12-25] MEDS: PANTOPRAZOLE 40 MG IV IVPush SCH ×2 (09:44→20:48)
[2019-12-25] MEDS: CHOLECALCIFEROL 1,000 UNIT TABLET PO SCH (09:44)
[2019-12-25] MEDS: SODIUM CHLORIDE FLUSH 10ML SYR IVF SCH ×2 (09:45→20:50)
[2019-12-25] MEDS: MEROPENEM 1 GM in SODIUM CHLORIDE 0.9% 100 ML IV SCH ×2 (10:09→20:59)
[2019-12-25] MEDS: FENTANYL PF 2,500 MCG in SODIUM CHLORIDE 0.9% 200 ML IV PRN (12:06)
[2019-12-25] MEDS ORDERED: QUETIAPINE 100MG TABLET ONE (20:40)
[2019-12-26] MEDS: ALBUTEROL/IPRATROPIUM 2.5MG/0.5MG, 3 ML INLINE SCH ×6 (02:11→22:50)
[2019-12-26] MEDS: INSULIN LISPRO 100 UNITS/ML, PEN SQ-INSULIN SCH ×4 (03:00→21:39)
[2019-12-26] MEDS: MIDAZOLAM HCL 50 MG in SODIUM CHLORIDE 0.9% 40 ML IV PRN ×3 (03:35→18:02)
[2019-12-26 04:01] LABS: BASOPHILS % (AUTO) 0 % (0-1); EOSINOPHILS % (AUTO) 7 % (1-7); LYMPHOCYTES % (AUTO) 8 % (22-44); MEAN CORPUSCULAR HEMOGLOBIN 30.5 pg (27.5-34.5); MEAN CORPUSCULAR HGB CONC 34.2 g/dL (33.2-36.2); MEAN PLATELET VOLUME 8.2 fL (7.4-10.4); MONOCYTES % (AUTO) 9 % (2-9); NEUTROPHILS % (AUTO) 77 % (42-75); PLATELET COUNT 213 x10^3/uL (130-400); RED BLOOD COUNT 2.62 x10^6/uL (4.38-5.82); RED CELL DISTRIBUTION WIDTH 12.8 % (9.4-14.8)
[2019-12-26 04:16] LABS: ANION GAP 5 mmol/L (5-15); CALCIUM 7.7 mg/dL (8.5-10.1); CHLORIDE 100 mmol/L (98-107); CREATININE 3.37 mg/dL (0.7-1.3); TRIGLYCERIDES 211 mg/dL (50-200)
[2019-12-26 04:31] LABS: MD SCAN
[2019-12-26] MEDS: MEROPENEM 1 GM in SODIUM CHLORIDE 0.9% 100 ML IV SCH (09:17)
[2019-12-26] MEDS: ASCORBIC ACID 500 MG TABLET PO SCH ×2 (09:17→21:38)
[2019-12-26] MEDS: ZINC SULFATE 220 MG CAPSULE PO SCH (09:17)
[2019-12-26] MEDS: PANTOPRAZOLE 40 MG IV IVPush SCH ×2 (09:18→21:37)
[2019-12-26] MEDS: QUETIAPINE 25MG TABLET PO SCH ×3 (09:18→21:38)
[2019-12-26] MEDS: CHOLECALCIFEROL 1,000 UNIT TABLET PO SCH (09:18)
[2019-12-26] MEDS: SODIUM CHLORIDE FLUSH 10ML SYR IVF SCH ×2 (09:19→21:00)
[2019-12-26] MEDS: FENTANYL PF 2,500 MCG in SODIUM CHLORIDE 0.9% 200 ML IV PRN (09:20)
[2019-12-26] MEDS ORDERED: VANCOMYCIN 1,600 MG in SODIUM CHLORIDE 0.9% 250 ML IV ONE (21:00)
[2019-12-27] MEDS: ALBUTEROL/IPRATROPIUM 2.5MG/0.5MG, 3 ML INLINE SCH ×6 (02:45→22:15)
[2019-12-27] MEDS: INSULIN LISPRO 100 UNITS/ML, PEN SQ-INSULIN SCH ×4 (03:00→21:00)
[2019-12-27 04:47] LABS: MEAN CORPUSCULAR HEMOGLOBIN 29.3 pg (27.5-34.5); MEAN PLATELET VOLUME 8.4 fL (7.4-10.4); PLATELET COUNT 216 x10^3/uL (130-400); RED BLOOD COUNT 2.73 x10^6/uL (4.38-5.82); RED CELL DISTRIBUTION WIDTH 12.9 % (9.4-14.8)
[2019-12-27 04:52] LABS: ANION GAP 3 mmol/L (5-15); CALCIUM 8.3 mg/dL (8.5-10.1); CHLORIDE 103 mmol/L (98-107)
[2019-12-27 05:43] LABS: BAND#(MANUAL) 0.34 x10^3/uL; BANDS%(MANUAL) 3 % (0-7); EOS#(MANUAL) 0.34 x10^3/uL (0.0-0.4); EOS% (MANUAL) 3 % (1-7); LYMPH#(MANUAL) 0.79 x10^3/uL (1-3.4); LYMPHS% (MANUAL) 7 % (22-44); MD YES; METAMYELOCYTES# (MANUAL) 0.23 x10^3/uL (0-0); METAMYELOCYTES% (MANUAL) 2 % (0-1); MONOS#(MANUAL) 1.24 x10^3/uL (0.3-2.7); MONOS% (MANUAL) 11 % (2-9); SEG#(MANUAL) 8.36 x10^3/uL (1.8-6.8); SEGS% (MANUAL) 74 % (42-75)
[2019-12-27 05:44] LABS: BASOPHILLIC STIPPLING 1+
[2019-12-27 05:45] LABS: ANISOCYTOSIS 1+; OVALOCYTES 1+; POLYCHROMASIA 1+; SCHISTOCYTES 1+; TEAR DROPS 1+
[2019-12-27 05:48] LABS: <PLATELET ESTIMATE> ADEQUATE; <PLT MORPHOLOGY> NORMAL PLT MORPH; LARGE PLATELETS 1+
[2019-12-27] MEDS: PANTOPRAZOLE 40 MG IV IVPush SCH ×2 (07:57→22:13)
[2019-12-27] MEDS: CHOLECALCIFEROL 1,000 UNIT TABLET PO SCH (07:58)
[2019-12-27] MEDS: QUETIAPINE 25MG TABLET PO SCH ×3 (07:58→21:00)
[2019-12-27] MEDS: ZINC SULFATE 220 MG CAPSULE PO SCH (07:58)
[2019-12-27] MEDS: ASCORBIC ACID 500 MG TABLET PO SCH ×2 (07:58→22:13)
[2019-12-27] MEDS: SODIUM CHLORIDE FLUSH 10ML SYR IVF SCH ×2 (07:59→21:00)
[2019-12-27] MEDS: MIDAZOLAM HCL 50 MG in SODIUM CHLORIDE 0.9% 40 ML IV PRN ×3 (09:08→23:39)
[2019-12-27] MEDS: FENTANYL PF 2,500 MCG in SODIUM CHLORIDE 0.9% 200 ML IV PRN (09:08)
[2019-12-27] MEDS ORDERED: QUETIAPINE 100MG TABLET ONE (21:01)
[2019-12-27] MEDS: ACETAMINOPHEN 325 MG TABLET PO PRN (22:19)
[2019-12-28] MEDS: ALBUTEROL/IPRATROPIUM 2.5MG/0.5MG, 3 ML INLINE SCH ×7 (02:10→22:15)
[2019-12-28] MEDS: FENTANYL PF 2,500 MCG in SODIUM CHLORIDE 0.9% 200 ML IV PRN ×2 (04:19→22:13)
[2019-12-28] MEDS: INSULIN LISPRO 100 UNITS/ML, PEN SQ-INSULIN SCH ×4 (05:01→22:20)
[2019-12-28 05:20] LABS: BASOPHILS % (AUTO) 1 % (0-1); EOSINOPHILS % (AUTO) 5 % (1-7); LYMPHOCYTES % (AUTO) 10 % (22-44); MEAN CORPUSCULAR HGB CONC 33.5 g/dL (33.2-36.2); MEAN PLATELET VOLUME 8.3 fL (7.4-10.4); MONOCYTES % (AUTO) 13 % (2-9); NEUTROPHILS % (AUTO) 72 % (42-75); PLATELET COUNT 236 x10^3/uL (130-400); RED CELL DISTRIBUTION WIDTH 12.9 % (9.4-14.8)
[2019-12-28 05:26] LABS: MD NO
[2019-12-28 05:31] LABS: ANION GAP 5 mmol/L (5-15); CALCIUM 8.5 mg/dL (8.5-10.1); CHLORIDE 101 mmol/L (98-107); CREATININE 4.17 mg/dL (0.7-1.3)
[2019-12-28] MEDS: MIDAZOLAM HCL 50 MG in SODIUM CHLORIDE 0.9% 40 ML IV PRN ×3 (06:07→19:53)
[2019-12-28] MEDS: ASCORBIC ACID 500 MG TABLET PO SCH ×2 (08:17→21:29)
[2019-12-28] MEDS: CHOLECALCIFEROL 1,000 UNIT TABLET PO SCH (08:17)
[2019-12-28] MEDS: PANTOPRAZOLE 40 MG IV IVPush SCH ×2 (08:17→22:07)
[2019-12-28] MEDS: ZINC SULFATE 220 MG CAPSULE PO SCH (08:18)
[2019-12-28] MEDS: QUETIAPINE 25MG TABLET PO SCH ×3 (08:18→21:29)
[2019-12-28] MEDS: SODIUM CHLORIDE FLUSH 10ML SYR IVF SCH ×2 (08:18→22:07)
[2019-12-28] MEDS ORDERED: VECURONIUM 10 MG IVPush ONE (11:00)
[2019-12-28] MEDS: VECURONIUM 50 MG in SODIUM CHLORIDE 0.9% 50 ML IV PRN ×3 (11:06→22:12)
[2019-12-28] MEDS ORDERED: FENTANYL PF 100 MCG/2ML IVPush ONE (15:30)
[2019-12-28] MEDS ORDERED: FENTANYL PF 100 MCG/2ML ONE (15:33)
[2019-12-28] MEDS: ALBUMIN HUMAN 25% 100 ML IV PRN (20:07)
[2019-12-29] MEDS: PROPOFOL 100 ML IV PRN ×3 (02:07→19:43)
[2019-12-29] MEDS: MIDAZOLAM HCL 50 MG in SODIUM CHLORIDE 0.9% 40 ML IV PRN ×4 (02:32→17:42)
[2019-12-29] MEDS: NOREPINEPHRINE 8 MG in SODIUM CHLORIDE 0.9% 242 ML IV PRN (02:32)
[2019-12-29] MEDS: ALBUTEROL/IPRATROPIUM 2.5MG/0.5MG, 3 ML INLINE SCH ×6 (03:00→22:33)
[2019-12-29] MEDS: INSULIN LISPRO 100 UNITS/ML, PEN SQ-INSULIN SCH ×4 (03:30→22:06)
[2019-12-29 03:50] LABS: MEAN CORPUSCULAR HEMOGLOBIN 29.2 pg (27.5-34.5); MEAN CORPUSCULAR HGB CONC 32.7 g/dL (33.2-36.2); MEAN PLATELET VOLUME 8.1 fL (7.4-10.4); PLATELET COUNT 260 x10^3/uL (130-400); RED BLOOD COUNT 2.56 x10^6/uL (4.38-5.82)
[2019-12-29 04:00] LABS: ANION GAP 6 mmol/L (5-15); CALCIUM 8.1 mg/dL (8.5-10.1); CHLORIDE 101 mmol/L (98-107); CREATININE 3.22 mg/dL (0.7-1.3); TRIGLYCERIDES 204 mg/dL (50-200)
[2019-12-29] MEDS: VECURONIUM 50 MG in SODIUM CHLORIDE 0.9% 50 ML IV PRN ×3 (05:34→19:43)
[2019-12-29 05:46] LABS: MD YES
[2019-12-29 05:47] LABS: BAND#(MANUAL) 0.25 x10^3/uL; BANDS%(MANUAL) 2 % (0-7); LYMPH#(MANUAL) 0.99 x10^3/uL (1-3.4); LYMPHS% (MANUAL) 8 % (22-44); METAMYELOCYTES# (MANUAL) 0.25 x10^3/uL (0-0); METAMYELOCYTES% (MANUAL) 2 % (0-1); MONOS#(MANUAL) 1.36 x10^3/uL (0.3-2.7); MONOS% (MANUAL) 11 % (2-9); MYELOCYTES# (MANUAL) 0.12 x10^3/uL (0-0); MYELOCYTES% (MANUAL) 1 % (0-0); SEG#(MANUAL) 9.42 x10^3/uL (1.8-6.8); SEGS% (MANUAL) 76 % (42-75)
[2019-12-29 05:48] LABS: ANISOCYTOSIS 1+; BASOPHILLIC STIPPLING 1+; OVALOCYTES 1+; POLYCHROMASIA 1+
[2019-12-29 05:50] LABS: <PLATELET ESTIMATE> ADEQUATE; <PLT MORPHOLOGY> NORMAL PLT MORPH
[2019-12-29] MEDS: FENTANYL PF 2,500 MCG in SODIUM CHLORIDE 0.9% 200 ML IV PRN ×3 (06:02→23:32)
[2019-12-29] MEDS: SODIUM CHLORIDE FLUSH 10ML SYR IVF SCH ×2 (07:35→21:59)
[2019-12-29] MEDS: ASCORBIC ACID 500 MG TABLET PO SCH ×2 (07:35→21:05)
[2019-12-29] MEDS: PANTOPRAZOLE 40 MG IV IVPush SCH ×2 (07:35→21:59)
[2019-12-29] MEDS: QUETIAPINE 25MG TABLET PO SCH ×3 (07:35→21:00)
[2019-12-29] MEDS: ZINC SULFATE 220 MG CAPSULE PO SCH (07:36)
[2019-12-29] MEDS: CHOLECALCIFEROL 1,000 UNIT TABLET PO SCH (07:36)
[2019-12-29] MEDS: MIDAZOLAM HCL 100 MG in SODIUM CHLORIDE 0.9% 80 ML IV PRN (23:31)
[2019-12-30] MEDS: ALBUTEROL/IPRATROPIUM 2.5MG/0.5MG, 3 ML INLINE SCH ×6 (02:50→22:01)
[2019-12-30] MEDS: VECURONIUM 50 MG in SODIUM CHLORIDE 0.9% 50 ML IV PRN (03:02)
[2019-12-30] MEDS: INSULIN LISPRO 100 UNITS/ML, PEN SQ-INSULIN SCH ×4 (03:30→21:00)
[2019-12-30] MEDS: PROPOFOL 100 ML IV PRN (03:35)
[2019-12-30 04:02] LABS: BASOPHILS % (AUTO) 1 % (0-1); EOSINOPHILS % (AUTO) 3 % (1-7); LYMPHOCYTES % (AUTO) 10 % (22-44); MEAN CORPUSCULAR HEMOGLOBIN 29.7 pg (27.5-34.5); MEAN CORPUSCULAR HGB CONC 33.2 g/dL (33.2-36.2); MEAN PLATELET VOLUME 7.9 fL (7.4-10.4); MONOCYTES % (AUTO) 13 % (2-9); NEUTROPHILS % (AUTO) 73 % (42-75); PLATELET COUNT 317 x10^3/uL (130-400); RED BLOOD COUNT 2.72 x10^6/uL (4.38-5.82)
[2019-12-30 04:10] LABS: ANION GAP 7 mmol/L (5-15); CHLORIDE 101 mmol/L (98-107); CREATININE 4.57 mg/dL (0.7-1.3)
[2019-12-30 04:27] LABS: MD SCAN
[2019-12-30] MEDS: NOREPINEPHRINE 8 MG in SODIUM CHLORIDE 0.9% 242 ML IV PRN (05:21)
[2019-12-30] MEDS: FENTANYL PF 2,500 MCG in SODIUM CHLORIDE 0.9% 200 ML IV PRN ×2 (07:27→17:35)
[2019-12-30] MEDS: PANTOPRAZOLE 40 MG IV IVPush SCH ×2 (07:27→21:15)
[2019-12-30] MEDS: SODIUM CHLORIDE FLUSH 10ML SYR IVF SCH ×2 (07:28→21:26)
[2019-12-30] MEDS: QUETIAPINE 25MG TABLET PO SCH ×3 (07:28→21:15)
[2019-12-30] MEDS: ASCORBIC ACID 500 MG TABLET PO SCH ×2 (07:28→21:15)
[2019-12-30] MEDS: ZINC SULFATE 220 MG CAPSULE PO SCH (07:28)
[2019-12-30] MEDS: CHOLECALCIFEROL 1,000 UNIT TABLET PO SCH (07:28)
[2019-12-30] MEDS ORDERED: ARTIFICIAL TEARS OINT 3.5 GM EACHEYE PRN (10:00)
[2019-12-30] MEDS: MIDAZOLAM HCL 100 MG in SODIUM CHLORIDE 0.9% 80 ML IV PRN ×2 (10:25→21:16)
[2019-12-30] MEDS: ALBUMIN HUMAN 25% 100 ML IV PRN (23:40)
[2019-12-31] MEDS: ALBUTEROL/IPRATROPIUM 2.5MG/0.5MG, 3 ML INLINE SCH ×6 (02:40→22:52)
[2019-12-31] MEDS: FENTANYL PF 2,500 MCG in SODIUM CHLORIDE 0.9% 200 ML IV PRN (03:21)
[2019-12-31] MEDS: INSULIN LISPRO 100 UNITS/ML, PEN SQ-INSULIN SCH ×4 (03:25→21:00)
[2019-12-31 03:54] LABS: BASOPHILS % (AUTO) 1 % (0-1); EOSINOPHILS % (AUTO) 2 % (1-7); LYMPHOCYTES % (AUTO) 7 % (22-44); MEAN CORPUSCULAR HGB CONC 33.5 g/dL (33.2-36.2); MEAN PLATELET VOLUME 8.2 fL (7.4-10.4); MONOCYTES % (AUTO) 10 % (2-9); NEUTROPHILS % (AUTO) 81 % (42-75); PLATELET COUNT 247 x10^3/uL (130-400); RED BLOOD COUNT 2.53 x10^6/uL (4.38-5.82); RED CELL DISTRIBUTION WIDTH 13.2 % (9.4-14.8)
[2019-12-31 03:55] LABS: ANION GAP 8 mmol/L (5-15); CHLORIDE 103 mmol/L (98-107); CREATININE 2.91 mg/dL (0.7-1.3)
[2019-12-31 04:00] VITALS: BP 110/59
[2019-12-31 04:10] LABS: MD NO
[2019-12-31] MEDS: SODIUM CHLORIDE FLUSH 10ML SYR IVF SCH ×2 (09:00→21:07)
[2019-12-31] MEDS: CHOLECALCIFEROL 1,000 UNIT TABLET PO SCH (09:20)
[2019-12-31] MEDS: ZINC SULFATE 220 MG CAPSULE PO SCH (09:21)
[2019-12-31] MEDS: HEPARIN 5,000 UNITS/ML, 1ML SQ SCH ×2 (09:21→21:07)
[2019-12-31] MEDS: QUETIAPINE 25MG TABLET PO SCH ×3 (09:21→21:08)
[2019-12-31] MEDS: PANTOPRAZOLE 40 MG IV IVPush SCH ×2 (09:21→21:07)
[2019-12-31] MEDS: ASCORBIC ACID 500 MG TABLET PO SCH ×2 (09:22→21:07)
[2019-12-31] MEDS: NOREPINEPHRINE 8 MG in SODIUM CHLORIDE 0.9% 242 ML IV PRN (10:23)
[2020-01-01] MEDS: FENTANYL PF 2,500 MCG in SODIUM CHLORIDE 0.9% 200 ML IV PRN (01:36)
[2020-01-01] MEDS: MIDAZOLAM HCL 100 MG in SODIUM CHLORIDE 0.9% 80 ML IV PRN (02:07)
[2020-01-01] MEDS: INSULIN LISPRO 100 UNITS/ML, PEN SQ-INSULIN SCH ×4 (02:10→21:14)
[2020-01-01] MEDS: ALBUTEROL/IPRATROPIUM 2.5MG/0.5MG, 3 ML INLINE SCH ×6 (02:31→22:11)
[2020-01-01 04:00] VITALS: BP 122/59
[2020-01-01 04:50] LABS: ANION GAP 5 mmol/L (5-15); CALCIUM 8.4 mg/dL (8.5-10.1); CHLORIDE 109 mmol/L (98-107)
[2020-01-01 04:51] LABS: CREATININE 2.91 mg/dL (0.7-1.3); TRIGLYCERIDES 278 mg/dL (50-200)
[2020-01-01 04:56] LABS: BASOPHILS % (AUTO) 1 % (0-1); EOSINOPHILS % (AUTO) 3 % (1-7); LYMPHOCYTES % (AUTO) 6 % (22-44); MEAN CORPUSCULAR HEMOGLOBIN 29.5 pg (27.5-34.5); MEAN CORPUSCULAR HGB CONC 33.4 g/dL (33.2-36.2); MONOCYTES % (AUTO) 12 % (2-9); NEUTROPHILS % (AUTO) 78 % (42-75); PLATELET COUNT 280 x10^3/uL (130-400); RED BLOOD COUNT 2.64 x10^6/uL (4.38-5.82); RED CELL DISTRIBUTION WIDTH 13.4 % (9.4-14.8)
[2020-01-01 05:00] LABS: MD NO
[2020-01-01] MEDS: NOREPINEPHRINE 8 MG in SODIUM CHLORIDE 0.9% 242 ML IV PRN (05:52)
[2020-01-01 06:07] VITALS: BP 122/59
[2020-01-01 06:08] VITALS: BP 122/59
[2020-01-01] MEDS: QUETIAPINE 25MG TABLET PO SCH ×3 (08:16→21:07)
[2020-01-01] MEDS: ZINC SULFATE 220 MG CAPSULE PO SCH (08:16)
[2020-01-01] MEDS: HEPARIN 5,000 UNITS/ML, 1ML SQ SCH ×2 (08:16→21:06)
[2020-01-01] MEDS: SODIUM CHLORIDE FLUSH 10ML SYR IVF SCH ×2 (08:16→21:19)
[2020-01-01] MEDS: PANTOPRAZOLE 40 MG IV IVPush SCH ×2 (08:16→21:06)
[2020-01-01] MEDS: ASCORBIC ACID 500 MG TABLET PO SCH ×2 (08:17→21:07)
[2020-01-01] MEDS: CHOLECALCIFEROL 1,000 UNIT TABLET PO SCH (08:17)
[2020-01-02] MEDS: ALBUTEROL/IPRATROPIUM 2.5MG/0.5MG, 3 ML INLINE SCH ×6 (02:55→22:10)
[2020-01-02] MEDS: INSULIN LISPRO 100 UNITS/ML, PEN SQ-INSULIN SCH ×4 (03:20→20:51)
[2020-01-02 03:30] LABS: BASOPHILS % (AUTO) 1 % (0-1); EOSINOPHILS % (AUTO) 2 % (1-7); LYMPHOCYTES % (AUTO) 8 % (22-44); MEAN CORPUSCULAR HEMOGLOBIN 29.9 pg (27.5-34.5); MEAN CORPUSCULAR HGB CONC 33.9 g/dL (33.2-36.2); MEAN PLATELET VOLUME 7.5 fL (7.4-10.4); MONOCYTES % (AUTO) 13 % (2-9); NEUTROPHILS % (AUTO) 77 % (42-75); PLATELET COUNT 249 x10^3/uL (130-400); RED BLOOD COUNT 2.39 x10^6/uL (4.38-5.82); RED CELL DISTRIBUTION WIDTH 13.1 % (9.4-14.8)
[2020-01-02 03:34] LABS: MD NO
[2020-01-02 03:39] LABS: ANION GAP 5 mmol/L (5-15); CALCIUM 8.4 mg/dL (8.5-10.1); CHLORIDE 108 mmol/L (98-107); CREATININE 4.13 mg/dL (0.7-1.3)
[2020-01-02 04:00] VITALS: BP 129/66
[2020-01-02] MEDS: ZINC SULFATE 220 MG CAPSULE PO SCH (09:04)
[2020-01-02] MEDS: ASCORBIC ACID 500 MG TABLET PO SCH ×2 (09:04→20:48)
[2020-01-02] MEDS: QUETIAPINE 25MG TABLET PO SCH ×3 (09:05→20:48)
[2020-01-02] MEDS: HEPARIN 5,000 UNITS/ML, 1ML SQ SCH ×2 (09:06→20:48)
[2020-01-02] MEDS: PANTOPRAZOLE 40 MG IV IVPush SCH ×2 (09:06→20:48)
[2020-01-02] MEDS: SODIUM CHLORIDE FLUSH 10ML SYR IVF SCH ×2 (09:07→20:51)
[2020-01-02] MEDS: CHOLECALCIFEROL 1,000 UNIT TABLET PO SCH (09:10)
[2020-01-02 23:28] VITALS: BP 126/64
[2020-01-02 23:43] VITALS: BP 113/57
[2020-01-03 00:45] VITALS: BP 113/63
[2020-01-03] MEDS: ALBUTEROL/IPRATROPIUM 2.5MG/0.5MG, 3 ML INLINE SCH ×6 (02:40→22:30)
[2020-01-03] MEDS: INSULIN LISPRO 100 UNITS/ML, PEN SQ-INSULIN SCH ×4 (03:54→21:11)
[2020-01-03 04:00] VITALS: BP 115/59
[2020-01-03 04:17] LABS: BASOPHILS % (AUTO) 1 % (0-1); EOSINOPHILS % (AUTO) 3 % (1-7); LYMPHOCYTES % (AUTO) 7 % (22-44); MEAN CORPUSCULAR HEMOGLOBIN 29.8 pg (27.5-34.5); MEAN CORPUSCULAR HGB CONC 33.8 g/dL (33.2-36.2); MEAN PLATELET VOLUME 7.7 fL (7.4-10.4); MONOCYTES % (AUTO) 12 % (2-9); NEUTROPHILS % (AUTO) 78 % (42-75); PLATELET COUNT 237 x10^3/uL (130-400); RED BLOOD COUNT 2.71 x10^6/uL (4.38-5.82); RED CELL DISTRIBUTION WIDTH 13.3 % (9.4-14.8)
[2020-01-03 04:25] LABS: ANION GAP 5 mmol/L (5-15); CALCIUM 8.4 mg/dL (8.5-10.1); CHLORIDE 104 mmol/L (98-107); CREATININE 3.17 mg/dL (0.7-1.3)
[2020-01-03 04:44] LABS: MD SCAN
[2020-01-03] MEDS: PANTOPRAZOLE 40 MG IV IVPush SCH ×2 (09:22→21:11)
[2020-01-03] MEDS: ZINC SULFATE 220 MG CAPSULE PO SCH (09:22)
[2020-01-03] MEDS: QUETIAPINE 25MG TABLET PO SCH ×2 (09:22→16:07)
[2020-01-03] MEDS: CHOLECALCIFEROL 1,000 UNIT TABLET PO SCH (09:22)
[2020-01-03] MEDS: ASCORBIC ACID 500 MG TABLET PO SCH ×2 (09:22→21:11)
[2020-01-03] MEDS: HEPARIN 5,000 UNITS/ML, 1ML SQ SCH ×2 (09:23→21:11)
[2020-01-03] MEDS: SODIUM CHLORIDE FLUSH 10ML SYR IVF SCH ×2 (09:23→21:17)
[2020-01-03] MEDS ORDERED: METHYLNALTREXONE 12 MG/0.6 ML SYR SQ PRN (10:30)
[2020-01-04] MEDS: ALBUTEROL/IPRATROPIUM 2.5MG/0.5MG, 3 ML INLINE SCH ×6 (02:25→22:05)
[2020-01-04] MEDS: INSULIN LISPRO 100 UNITS/ML, PEN SQ-INSULIN SCH ×4 (03:30→21:09)
[2020-01-04] MEDS: FENTANYL PF 2,500 MCG in SODIUM CHLORIDE 0.9% 200 ML IV PRN (03:31)
[2020-01-04 03:53] LABS: BASOPHILS % (AUTO) 0 % (0-1); EOSINOPHILS % (AUTO) 3 % (1-7); LYMPHOCYTES % (AUTO) 9 % (22-44); MEAN CORPUSCULAR HEMOGLOBIN 29.8 pg (27.5-34.5); MEAN CORPUSCULAR HGB CONC 33.8 g/dL (33.2-36.2); MEAN PLATELET VOLUME 7.7 fL (7.4-10.4); MONOCYTES % (AUTO) 12 % (2-9); NEUTROPHILS % (AUTO) 77 % (42-75); PLATELET COUNT 222 x10^3/uL (130-400); RED BLOOD COUNT 2.54 x10^6/uL (4.38-5.82); RED CELL DISTRIBUTION WIDTH 13.6 % (9.4-14.8)
[2020-01-04 04:00] VITALS: BP 115/61
[2020-01-04 04:28] LABS: MD SCAN
[2020-01-04 04:36] LABS: ANION GAP 5 mmol/L (5-15); CALCIUM 9.3 mg/dL (8.5-10.1); CHLORIDE 102 mmol/L (98-107); CREATININE 4.77 mg/dL (0.7-1.3)
[2020-01-04] MEDS: SODIUM CHLORIDE FLUSH 10ML SYR IVF SCH ×2 (09:59→21:00)
[2020-01-04] MEDS: PANTOPRAZOLE 40 MG IV IVPush SCH ×2 (09:59→21:08)
[2020-01-04] MEDS: ZINC SULFATE 220 MG CAPSULE PO SCH (10:00)
[2020-01-04] MEDS: ASCORBIC ACID 500 MG TABLET PO SCH ×2 (10:00→21:08)
[2020-01-04] MEDS: HEPARIN 5,000 UNITS/ML, 1ML SQ SCH ×2 (10:00→21:00)
[2020-01-04] MEDS: CHOLECALCIFEROL 1,000 UNIT TABLET PO SCH (10:00)
[2020-01-05] MEDS: ALBUTEROL/IPRATROPIUM 2.5MG/0.5MG, 3 ML INLINE SCH ×6 (02:22→22:47)
[2020-01-05] MEDS: INSULIN LISPRO 100 UNITS/ML, PEN SQ-INSULIN SCH ×4 (02:27→21:48)
[2020-01-05 03:04] LABS: BASOPHILS % (AUTO) 1 % (0-1); EOSINOPHILS % (AUTO) 2 % (1-7); LYMPHOCYTES % (AUTO) 11 % (22-44); MEAN CORPUSCULAR HEMOGLOBIN 30.4 pg (27.5-34.5); MEAN CORPUSCULAR HGB CONC 34.9 g/dL (33.2-36.2); MEAN PLATELET VOLUME 7.8 fL (7.4-10.4); MONOCYTES % (AUTO) 11 % (2-9); NEUTROPHILS % (AUTO) 75 % (42-75); PLATELET COUNT 194 x10^3/uL (130-400); RED BLOOD COUNT 2.54 x10^6/uL (4.38-5.82); RED CELL DISTRIBUTION WIDTH 13.3 % (9.4-14.8)
[2020-01-05 03:08] LABS: MD NO
[2020-01-05 03:29] LABS: ANION GAP 5 mmol/L (5-15); CALCIUM 9.2 mg/dL (8.5-10.1); CHLORIDE 100 mmol/L (98-107); CREATININE 4.24 mg/dL (0.7-1.3)
[2020-01-05 04:00] VITALS: BP 116/68
[2020-01-05] MEDS: SODIUM CHLORIDE FLUSH 10ML SYR IVF SCH ×2 (08:11→21:00)
[2020-01-05] MEDS: CHOLECALCIFEROL 1,000 UNIT TABLET PO SCH (08:17)
[2020-01-05] MEDS: ASCORBIC ACID 500 MG TABLET PO SCH ×2 (08:17→21:00)
[2020-01-05] MEDS: HEPARIN 5,000 UNITS/ML, 1ML SQ SCH ×2 (08:18→21:36)
[2020-01-05] MEDS: PANTOPRAZOLE 40 MG IV IVPush SCH ×2 (08:18→21:36)
[2020-01-05] MEDS: ZINC SULFATE 220 MG CAPSULE PO SCH (08:18)
[2020-01-06] MEDS: ALBUTEROL/IPRATROPIUM 2.5MG/0.5MG, 3 ML INLINE SCH ×6 (02:50→21:50)
[2020-01-06 04:00] VITALS: BP 120/66
[2020-01-06 04:16] LABS: BASOPHILS % (AUTO) 1 % (0-1); EOSINOPHILS % (AUTO) 2 % (1-7); LYMPHOCYTES % (AUTO) 8 % (22-44); MEAN CORPUSCULAR HEMOGLOBIN 29.5 pg (27.5-34.5); MEAN CORPUSCULAR HGB CONC 33.9 g/dL (33.2-36.2); MEAN PLATELET VOLUME 8.1 fL (7.4-10.4); MONOCYTES % (AUTO) 11 % (2-9); NEUTROPHILS % (AUTO) 79 % (42-75); PLATELET COUNT 182 x10^3/uL (130-400); RED BLOOD COUNT 2.51 x10^6/uL (4.38-5.82); RED CELL DISTRIBUTION WIDTH 13.2 % (9.4-14.8)
[2020-01-06 04:25] LABS: ANION GAP 8 mmol/L (5-15); CALCIUM 9.6 mg/dL (8.5-10.1); CHLORIDE 99 mmol/L (98-107)
[2020-01-06 04:26] LABS: CREATININE 5.69 mg/dL (0.7-1.3)
[2020-01-06] MEDS: INSULIN LISPRO 100 UNITS/ML, PEN SQ-INSULIN SCH ×4 (04:47→21:00)
[2020-01-06 05:26] LABS: MD SCAN
[2020-01-06] MEDS: CHOLECALCIFEROL 1,000 UNIT TABLET PO SCH (08:43)
[2020-01-06] MEDS: PANTOPRAZOLE 40 MG IV IVPush SCH ×2 (08:43→21:01)
[2020-01-06] MEDS: ZINC SULFATE 220 MG CAPSULE PO SCH (08:43)
[2020-01-06] MEDS: HEPARIN 5,000 UNITS/ML, 1ML SQ SCH ×2 (08:43→21:01)
[2020-01-06] MEDS: ASCORBIC ACID 500 MG TABLET PO SCH (08:43)
[2020-01-06] MEDS: SODIUM CHLORIDE FLUSH 10ML SYR IVF SCH ×2 (09:00→21:03)
[2020-01-06] MEDS ORDERED: VECURONIUM 10 MG IVPush ONE (15:30)
[2020-01-06] MEDS ORDERED: FENTANYL PF 100 MCG/2ML IVPush ONE (15:30)
[2020-01-07] MEDS: ALBUTEROL/IPRATROPIUM 2.5MG/0.5MG, 3 ML INLINE SCH ×6 (03:00→22:48)
[2020-01-07] MEDS: INSULIN LISPRO 100 UNITS/ML, PEN SQ-INSULIN SCH ×4 (03:15→21:00)
[2020-01-07 04:00] VITALS: BP 127/70
[2020-01-07 04:30] LABS: BASOPHILS % (AUTO) 1 % (0-1); EOSINOPHILS % (AUTO) 1 % (1-7); LYMPHOCYTES % (AUTO) 11 % (22-44); MEAN CORPUSCULAR HEMOGLOBIN 29.6 pg (27.5-34.5); MEAN CORPUSCULAR HGB CONC 33.7 g/dL (33.2-36.2); MEAN PLATELET VOLUME 7.9 fL (7.4-10.4); MONOCYTES % (AUTO) 10 % (2-9); NEUTROPHILS % (AUTO) 78 % (42-75); PLATELET COUNT 171 x10^3/uL (130-400); RED BLOOD COUNT 2.52 x10^6/uL (4.38-5.82); RED CELL DISTRIBUTION WIDTH 13.7 % (9.4-14.8)
[2020-01-07 04:34] LABS: MD NO
[2020-01-07 04:41] LABS: CHLORIDE 100 mmol/L (98-107)
[2020-01-07 04:45] LABS: ANION GAP 8 mmol/L (5-15); CALCIUM 9.2 mg/dL (8.5-10.1); CREATININE 4.48 mg/dL (0.7-1.3)
[2020-01-07] MEDS: PANTOPRAZOLE 40 MG IV IVPush SCH ×2 (09:30→21:50)
[2020-01-07] MEDS: HEPARIN 5,000 UNITS/ML, 1ML SQ SCH ×2 (09:30→21:50)
[2020-01-07] MEDS: SODIUM CHLORIDE FLUSH 10ML SYR IVF SCH ×2 (09:30→19:51)
[2020-01-07] MEDS: ACETAMINOPHEN 325 MG TABLET PO PRN (19:51)
[2020-01-08] MEDS: ALBUTEROL/IPRATROPIUM 2.5MG/0.5MG, 3 ML INLINE SCH ×6 (03:00→23:00)
[2020-01-08 04:00] VITALS: BP 111/61
[2020-01-08 04:25] LABS: BASOPHILS % (AUTO) 1 % (0-1); EOSINOPHILS % (AUTO) 1 % (1-7); LYMPHOCYTES % (AUTO) 8 % (22-44); MEAN CORPUSCULAR HEMOGLOBIN 29.6 pg (27.5-34.5); MEAN CORPUSCULAR HGB CONC 33.9 g/dL (33.2-36.2); MEAN PLATELET VOLUME 7.9 fL (7.4-10.4); MONOCYTES % (AUTO) 11 % (2-9); NEUTROPHILS % (AUTO) 79 % (42-75); PLATELET COUNT 159 x10^3/uL (130-400); RED BLOOD COUNT 2.39 x10^6/uL (4.38-5.82); RED CELL DISTRIBUTION WIDTH 13.7 % (9.4-14.8)
[2020-01-08 04:28] LABS: ANION GAP 4 mmol/L (5-15); CALCIUM 9.2 mg/dL (8.5-10.1); CHLORIDE 104 mmol/L (98-107)
[2020-01-08 04:29] LABS: MD NO
[2020-01-08] MEDS: INSULIN LISPRO 100 UNITS/ML, PEN SQ-INSULIN SCH ×4 (04:41→20:51)
[2020-01-08] MEDS: PANTOPRAZOLE 40 MG IV IVPush SCH ×2 (08:25→20:50)
[2020-01-08] MEDS: HEPARIN 5,000 UNITS/ML, 1ML SQ SCH ×2 (08:25→20:50)
[2020-01-08] MEDS: SODIUM CHLORIDE FLUSH 10ML SYR IVF SCH ×2 (08:25→20:49)
[2020-01-08] MEDS: FENTANYL PF 2,500 MCG in SODIUM CHLORIDE 0.9% 200 ML IV PRN (11:49)
[2020-01-08] MEDS: MIDAZOLAM 1 MG/ML, 2ML IVPush PRN (22:17)
[2020-01-09] MEDS: ALBUTEROL/IPRATROPIUM 2.5MG/0.5MG, 3 ML INLINE SCH ×6 (02:17→22:57)
[2020-01-09 03:00] VITALS: BP 112/63
[2020-01-09] MEDS: INSULIN LISPRO 100 UNITS/ML, PEN SQ-INSULIN SCH ×4 (03:09→20:55)
[2020-01-09 04:47] LABS: BASOPHILS % (AUTO) 1 % (0-1); EOSINOPHILS % (AUTO) 0 % (1-7); LYMPHOCYTES % (AUTO) 8 % (22-44); MEAN CORPUSCULAR HEMOGLOBIN 29.4 pg (27.5-34.5); MEAN CORPUSCULAR HGB CONC 33.5 g/dL (33.2-36.2); MEAN PLATELET VOLUME 7.9 fL (7.4-10.4); MONOCYTES % (AUTO) 8 % (2-9); NEUTROPHILS % (AUTO) 83 % (42-75); PLATELET COUNT 169 x10^3/uL (130-400); RED BLOOD COUNT 2.35 x10^6/uL (4.38-5.82); RED CELL DISTRIBUTION WIDTH 13.7 % (9.4-14.8)
[2020-01-09 04:52] LABS: ALANINE AMINOTRANSFERASE 97 U/L (12-78); ANION GAP 7 mmol/L (5-15); CALCIUM 9.4 mg/dL (8.5-10.1); CHLORIDE 101 mmol/L (98-107); CREATININE 5.15 mg/dL (0.7-1.3)
[2020-01-09 04:54] LABS: ALKALINE PHOSPHATASE 486 U/L (45-117); BILIRUBIN,TOTAL 0.7 mg/dL (0.2-1.0); TOTAL PROTEIN 7.2 g/dL (6.4-8.2)
[2020-01-09 05:53] LABS: MD SCAN
[2020-01-09] MEDS: FENTANYL PF 2,500 MCG in SODIUM CHLORIDE 0.9% 200 ML IV PRN ×2 (07:11→09:15)
[2020-01-09 08:57] VITALS: BP 104/56
[2020-01-09] MEDS: HEPARIN 5,000 UNITS/ML, 1ML SQ SCH ×2 (09:00→12:49)
[2020-01-09] MEDS: PANTOPRAZOLE 40 MG IV IVPush SCH ×2 (09:09→20:55)
[2020-01-09] MEDS: SODIUM CHLORIDE FLUSH 10ML SYR IVF SCH ×2 (09:10→20:55)
[2020-01-09 09:18] VITALS: BP 99/54
[2020-01-09 09:30] VITALS: BP 96/55
[2020-01-09 10:37] VITALS: BP 96/58
[2020-01-09 11:37] VITALS: BP 99/54
[2020-01-10] MEDS: ALBUTEROL/IPRATROPIUM 2.5MG/0.5MG, 3 ML INLINE SCH ×6 (02:24→22:06)
[2020-01-10] MEDS: INSULIN LISPRO 100 UNITS/ML, PEN SQ-INSULIN SCH ×4 (03:00→21:00)
[2020-01-10 04:30] VITALS: BP 102/60
[2020-01-10] MEDS: FENTANYL PF 2,500 MCG in SODIUM CHLORIDE 0.9% 200 ML IV PRN (04:48)
[2020-01-10 04:56] LABS: BASOPHILS % (AUTO) 1 % (0-1); EOSINOPHILS % (AUTO) 2 % (1-7); LYMPHOCYTES % (AUTO) 7 % (22-44); MEAN CORPUSCULAR HEMOGLOBIN 29.1 pg (27.5-34.5); MEAN CORPUSCULAR HGB CONC 33.8 g/dL (33.2-36.2); MONOCYTES % (AUTO) 10 % (2-9); NEUTROPHILS % (AUTO) 82 % (42-75); PLATELET COUNT 184 x10^3/uL (130-400); RED BLOOD COUNT 2.57 x10^6/uL (4.38-5.82); RED CELL DISTRIBUTION WIDTH 14.4 % (9.4-14.8)
[2020-01-10 05:06] LABS: ALANINE AMINOTRANSFERASE 70 U/L (12-78); ANION GAP 6 mmol/L (5-15); CHLORIDE 102 mmol/L (98-107)
[2020-01-10 05:08] LABS: ALKALINE PHOSPHATASE 393 U/L (45-117); BILIRUBIN,TOTAL 0.5 mg/dL (0.2-1.0); MD NO; TOTAL PROTEIN 7.4 g/dL (6.4-8.2)
[2020-01-10] MEDS: PANTOPRAZOLE 40 MG IV IVPush SCH ×2 (08:15→20:36)
[2020-01-10] MEDS: SODIUM CHLORIDE FLUSH 10ML SYR IVF SCH ×2 (08:15→20:34)
[2020-01-10] MEDS: FENTANYL 75 MCG PATCH TD SCH (17:36)
[2020-01-10] MEDS: MIDAZOLAM 1 MG/ML, 2ML IVPush PRN (20:45)
[2020-01-10] MEDS: ACETAMINOPHEN 325 MG TABLET PO PRN (20:45)
[2020-01-10] MEDS: LIDOCAINE-MPF 1%, 2ML ENDO PRN (22:06)
[2020-01-11] MEDS: LIDOCAINE-MPF 1%, 2ML ENDO PRN ×2 (01:00→19:38)
[2020-01-11] MEDS: ALBUTEROL/IPRATROPIUM 2.5MG/0.5MG, 3 ML INLINE SCH ×6 (02:10→23:34)
[2020-01-11] MEDS: INSULIN LISPRO 100 UNITS/ML, PEN SQ-INSULIN SCH ×4 (03:00→21:13)
[2020-01-11] MEDS: MIDAZOLAM 1 MG/ML, 2ML IVPush PRN (03:15)
[2020-01-11 03:48] LABS: BASOPHILS % (AUTO) 1 % (0-1); EOSINOPHILS % (AUTO) 0 % (1-7); LYMPHOCYTES % (AUTO) 4 % (22-44); MEAN CORPUSCULAR HEMOGLOBIN 29.5 pg (27.5-34.5); MEAN CORPUSCULAR HGB CONC 33.5 g/dL (33.2-36.2); MEAN PLATELET VOLUME 8.1 fL (7.4-10.4); MONOCYTES % (AUTO) 8 % (2-9); NEUTROPHILS % (AUTO) 87 % (42-75); PLATELET COUNT 201 x10^3/uL (130-400); RED BLOOD COUNT 2.54 x10^6/uL (4.38-5.82); RED CELL DISTRIBUTION WIDTH 13.9 % (9.4-14.8)
[2020-01-11 03:58] LABS: ALBUMIN 2.2 g/dL (3.4-5.0); ANION GAP 8 mmol/L (5-15); CALCIUM 9.3 mg/dL (8.5-10.1); CHLORIDE 103 mmol/L (98-107)
[2020-01-11 04:01] LABS: ALANINE AMINOTRANSFERASE 51 U/L (12-78); ALKALINE PHOSPHATASE 372 U/L (45-117); BILIRUBIN,TOTAL 0.8 mg/dL (0.2-1.0); CREATININE 5.16 mg/dL (0.7-1.3); TOTAL PROTEIN 7.5 g/dL (6.4-8.2)
[2020-01-11 04:11] LABS: MD SCAN
[2020-01-11 04:30] VITALS: BP 121/64
[2020-01-11] MEDS: PANTOPRAZOLE 40 MG IV IVPush SCH ×2 (07:57→20:06)
[2020-01-11] MEDS: SODIUM CHLORIDE FLUSH 10ML SYR IVF SCH ×2 (07:57→19:57)
[2020-01-11] MEDS: FENTANYL PF 2,500 MCG in SODIUM CHLORIDE 0.9% 200 ML IV PRN (12:18)
[2020-01-11] MEDS ORDERED: CEFEPIME 1 GM in DEXTROSE 5% 50 ML IV ONE (17:30)
[2020-01-12] MEDS: ALBUTEROL/IPRATROPIUM 2.5MG/0.5MG, 3 ML INLINE SCH ×6 (02:41→22:28)
[2020-01-12] MEDS: INSULIN LISPRO 100 UNITS/ML, PEN SQ-INSULIN SCH ×4 (03:00→20:50)
[2020-01-12 03:48] LABS: BASOPHILS % (AUTO) 0 % (0-1); EOSINOPHILS % (AUTO) 2 % (1-7); LYMPHOCYTES % (AUTO) 7 % (22-44); MEAN CORPUSCULAR HEMOGLOBIN 29.4 pg (27.5-34.5); MEAN CORPUSCULAR HGB CONC 33.7 g/dL (33.2-36.2); MEAN PLATELET VOLUME 7.5 fL (7.4-10.4); MONOCYTES % (AUTO) 9 % (2-9); NEUTROPHILS % (AUTO) 82 % (42-75); PLATELET COUNT 203 x10^3/uL (130-400); RED BLOOD COUNT 2.36 x10^6/uL (4.38-5.82); RED CELL DISTRIBUTION WIDTH 13.8 % (9.4-14.8)
[2020-01-12 03:58] LABS: CHLORIDE 103 mmol/L (98-107)
[2020-01-12 04:16] LABS: ALANINE AMINOTRANSFERASE 43 U/L (12-78); ALKALINE PHOSPHATASE 353 U/L (45-117); ANION GAP 6 mmol/L (5-15); BILIRUBIN,TOTAL 0.7 mg/dL (0.2-1.0); CALCIUM 8.7 mg/dL (8.5-10.1); CREATININE 3.44 mg/dL (0.7-1.3); TOTAL PROTEIN 7.5 g/dL (6.4-8.2)
[2020-01-12 04:30] VITALS: BP 107/55
[2020-01-12 06:47] LABS: MD NO
[2020-01-12] MEDS: LIDOCAINE-MPF 1%, 2ML ENDO PRN ×2 (06:50→22:28)
[2020-01-12] MEDS: PANTOPRAZOLE 40 MG IV IVPush SCH ×2 (10:21→20:50)
[2020-01-12] MEDS: SODIUM CHLORIDE FLUSH 10ML SYR IVF SCH ×2 (10:21→20:50)
[2020-01-12] MEDS: MEROPENEM 1 GM in SODIUM CHLORIDE 0.9% 100 ML IV SCH ×2 (10:43→21:55)
[2020-01-13] MEDS: ALBUTEROL/IPRATROPIUM 2.5MG/0.5MG, 3 ML INLINE SCH ×6 (02:40→22:03)
[2020-01-13 04:00] VITALS: BP 113/65
[2020-01-13 04:16] LABS: BASOPHILS % (AUTO) 1 % (0-1); EOSINOPHILS % (AUTO) 4 % (1-7); LYMPHOCYTES % (AUTO) 9 % (22-44); MEAN CORPUSCULAR HEMOGLOBIN 29.5 pg (27.5-34.5); MEAN CORPUSCULAR HGB CONC 34.2 g/dL (33.2-36.2); MEAN PLATELET VOLUME 7.4 fL (7.4-10.4); MONOCYTES % (AUTO) 9 % (2-9); NEUTROPHILS % (AUTO) 78 % (42-75); PLATELET COUNT 221 x10^3/uL (130-400); RED BLOOD COUNT 2.31 x10^6/uL (4.38-5.82); RED CELL DISTRIBUTION WIDTH 13.7 % (9.4-14.8)
[2020-01-13 04:19] LABS: ANION GAP 8 mmol/L (5-15); CALCIUM 9.3 mg/dL (8.5-10.1); CHLORIDE 103 mmol/L (98-107)
[2020-01-13 04:21] LABS: CREATININE 4.78 mg/dL (0.7-1.3)
[2020-01-13] MEDS: INSULIN LISPRO 100 UNITS/ML, PEN SQ-INSULIN SCH ×4 (04:54→20:46)
[2020-01-13 05:48] LABS: MD SCAN
[2020-01-13 09:20] VITALS: BP 128/71
[2020-01-13] MEDS: SODIUM CHLORIDE FLUSH 10ML SYR IVF SCH ×2 (09:26→20:42)
[2020-01-13] MEDS: PANTOPRAZOLE 40 MG IV IVPush SCH ×2 (09:26→20:41)
[2020-01-13 09:40] VITALS: BP 121/64
[2020-01-13] MEDS: MEROPENEM 1 GM in SODIUM CHLORIDE 0.9% 100 ML IV SCH ×2 (10:07→21:17)
[2020-01-13 11:47] VITALS: BP 130/75
[2020-01-13 13:00] VITALS: BP 125/71
[2020-01-13] MEDS: FENTANYL REMOVE PATCH NOTE XX SCH (15:00)
[2020-01-13] MEDS: FENTANYL 75 MCG PATCH TD SCH (16:07)
[2020-01-13] MEDS: LIDOCAINE-MPF 1%, 2ML ENDO PRN (20:11)
[2020-01-13] MEDS: MIDAZOLAM 1 MG/ML, 2ML IVPush PRN (20:41)
[2020-01-13] MEDS: ACETAMINOPHEN 325 MG TABLET PO PRN (20:41)
[2020-01-14] MEDS: MIDAZOLAM 1 MG/ML, 2ML IVPush PRN (01:07)
[2020-01-14] MEDS: ALBUTEROL/IPRATROPIUM 2.5MG/0.5MG, 3 ML INLINE SCH ×6 (02:12→22:20)
[2020-01-14] MEDS: INSULIN LISPRO 100 UNITS/ML, PEN SQ-INSULIN SCH ×4 (03:00→21:00)
[2020-01-14 04:00] VITALS: BP 110/63
[2020-01-14] MEDS ORDERED: MORPHINE SULFATE 4 MG/ML, 1ML IVPush ONE (04:00)
[2020-01-14 05:04] LABS: BASOPHILS % (AUTO) 1 % (0-1); EOSINOPHILS % (AUTO) 7 % (1-7); LYMPHOCYTES % (AUTO) 9 % (22-44); MEAN CORPUSCULAR HEMOGLOBIN 29.9 pg (27.5-34.5); MEAN CORPUSCULAR HGB CONC 34.7 g/dL (33.2-36.2); MEAN PLATELET VOLUME 7.4 fL (7.4-10.4); MONOCYTES % (AUTO) 9 % (2-9); NEUTROPHILS % (AUTO) 74 % (42-75); PLATELET COUNT 228 x10^3/uL (130-400); RED BLOOD COUNT 2.68 x10^6/uL (4.38-5.82); RED CELL DISTRIBUTION WIDTH 13.9 % (9.4-14.8)
[2020-01-14 05:05] LABS: MD NO
[2020-01-14 05:13] LABS: ANION GAP 6 mmol/L (5-15); CALCIUM 9.4 mg/dL (8.5-10.1); CHLORIDE 106 mmol/L (98-107); CREATININE 3.56 mg/dL (0.7-1.3)
[2020-01-14] MEDS: PANTOPRAZOLE 40 MG IV IVPush SCH ×2 (08:00→21:14)
[2020-01-14] MEDS: SODIUM CHLORIDE FLUSH 10ML SYR IVF SCH ×2 (08:03→21:00)
[2020-01-14] MEDS: MEROPENEM 1 GM in SODIUM CHLORIDE 0.9% 100 ML IV SCH ×2 (10:20→23:09)
[2020-01-14] MEDS: ACETAMINOPHEN 325 MG TABLET PO PRN ×3 (12:35→21:14)
[2020-01-14] MEDS: LIDOCAINE-MPF 1%, 2ML ENDO PRN (14:20)
[2020-01-14] MEDS ORDERED: MELATONIN 5 MG TABLET ONE (20:57)
[2020-01-14] MEDS: MELATONIN 5 MG TABLET PO SCH (21:14)
[2020-01-15] MEDS: ALBUTEROL/IPRATROPIUM 2.5MG/0.5MG, 3 ML INLINE SCH ×6 (02:36→23:00)
[2020-01-15] MEDS: INSULIN LISPRO 100 UNITS/ML, PEN SQ-INSULIN SCH ×4 (03:00→20:56)
[2020-01-15 04:00] VITALS: BP 111/66
[2020-01-15] MEDS: ACETAMINOPHEN 325 MG TABLET PO PRN (04:51)
[2020-01-15 05:30] LABS: BASOPHILS % (AUTO) 1 % (0-1); EOSINOPHILS % (AUTO) 10 % (1-7); LYMPHOCYTES % (AUTO) 16 % (22-44); MEAN CORPUSCULAR HGB CONC 34.3 g/dL (33.2-36.2); MEAN PLATELET VOLUME 7.5 fL (7.4-10.4); MONOCYTES % (AUTO) 10 % (2-9); NEUTROPHILS % (AUTO) 63 % (42-75); PLATELET COUNT 237 x10^3/uL (130-400); RED CELL DISTRIBUTION WIDTH 14.1 % (9.4-14.8)
[2020-01-15 05:36] LABS: ANION GAP 10 mmol/L (5-15); CALCIUM 9.7 mg/dL (8.5-10.1); CHLORIDE 106 mmol/L (98-107); CREATININE 4.88 mg/dL (0.7-1.3)
[2020-01-15 06:16] LABS: MD SCAN
[2020-01-15] MEDS: PANTOPRAZOLE 40 MG IV IVPush SCH ×2 (10:01→20:52)
[2020-01-15] MEDS: SODIUM CHLORIDE FLUSH 10ML SYR IVF SCH ×2 (10:01→20:56)
[2020-01-15] MEDS: MEROPENEM 1 GM in SODIUM CHLORIDE 0.9% 100 ML IV SCH ×2 (10:09→21:02)
[2020-01-15] MEDS: SODIUM CHLORIDE INHALATION 7%, 4 ML NPPB PRN (14:40)
[2020-01-15] MEDS: MELATONIN 5 MG TABLET PO SCH (20:52)
[2020-01-15] MEDS: LIDOCAINE-MPF 1%, 2ML ENDO PRN (20:53)
[2020-01-16] MEDS: LIDOCAINE-MPF 1%, 2ML ENDO PRN (00:11)
[2020-01-16] MEDS: SODIUM CHLORIDE INHALATION 7%, 4 ML NPPB SCH ×2 (02:15→15:00)
[2020-01-16] MEDS: INSULIN LISPRO 100 UNITS/ML, PEN SQ-INSULIN SCH ×4 (02:50→21:38)
[2020-01-16] MEDS: ALBUTEROL/IPRATROPIUM 2.5MG/0.5MG, 3 ML INLINE SCH ×6 (03:00→22:45)
[2020-01-16 04:00] VITALS: BP 124/66
[2020-01-16 06:26] LABS: ANION GAP 5 mmol/L (5-15); CHLORIDE 104 mmol/L (98-107)
[2020-01-16 06:27] LABS: BASOPHILS % (AUTO) 1 % (0-1); CREATININE 5.92 mg/dL (0.7-1.3); EOSINOPHILS % (AUTO) 9 % (1-7); LYMPHOCYTES % (AUTO) 17 % (22-44); MEAN CORPUSCULAR HEMOGLOBIN 30.6 pg (27.5-34.5); MEAN CORPUSCULAR HGB CONC 34.6 g/dL (33.2-36.2); MEAN PLATELET VOLUME 7.5 fL (7.4-10.4); MONOCYTES % (AUTO) 8 % (2-9); NEUTROPHILS % (AUTO) 65 % (42-75); PLATELET COUNT 253 x10^3/uL (130-400); RED BLOOD COUNT 2.54 x10^6/uL (4.38-5.82); RED CELL DISTRIBUTION WIDTH 13.7 % (9.4-14.8)
[2020-01-16 07:12] LABS: MD NO
[2020-01-16] MEDS: SODIUM CHLORIDE FLUSH 10ML SYR IVF SCH ×2 (08:25→21:11)
[2020-01-16] MEDS: PANTOPRAZOLE 40 MG IV IVPush SCH ×2 (08:25→21:12)
[2020-01-16] MEDS: MEROPENEM 1 GM in SODIUM CHLORIDE 0.9% 100 ML IV SCH ×2 (11:13→22:19)
[2020-01-16] MEDS: SODIUM CHLORIDE INHALATION 7%, 4 ML NPPB PRN (11:40)
[2020-01-16] MEDS: FENTANYL REMOVE PATCH NOTE XX SCH (15:00)
[2020-01-16] MEDS: FENTANYL 75 MCG PATCH TD SCH (15:09)
[2020-01-16] MEDS: MELATONIN 5 MG TABLET PO SCH (21:12)
[2020-01-17] MEDS: ALBUTEROL/IPRATROPIUM 2.5MG/0.5MG, 3 ML INLINE SCH ×6 (03:00→23:30)
[2020-01-17] MEDS: INSULIN LISPRO 100 UNITS/ML, PEN SQ-INSULIN SCH ×4 (03:49→21:04)
[2020-01-17 04:00] VITALS: BP 146/91
[2020-01-17] MEDS: ACETAMINOPHEN 325 MG TABLET PO PRN ×2 (04:11→23:00)
[2020-01-17 04:18] LABS: BASOPHILS % (AUTO) 1 % (0-1); EOSINOPHILS % (AUTO) 8 % (1-7); LYMPHOCYTES % (AUTO) 18 % (22-44); MEAN CORPUSCULAR HGB CONC 34.4 g/dL (33.2-36.2); MEAN PLATELET VOLUME 6.8 fL (7.4-10.4); MONOCYTES % (AUTO) 9 % (2-9); NEUTROPHILS % (AUTO) 64 % (42-75); PLATELET COUNT 241 x10^3/uL (130-400); RED BLOOD COUNT 2.67 x10^6/uL (4.38-5.82); RED CELL DISTRIBUTION WIDTH 14.1 % (9.4-14.8)
[2020-01-17 04:28] LABS: ALANINE AMINOTRANSFERASE 28 U/L (12-78); ALBUMIN 2.3 g/dL (3.4-5.0); ANION GAP 6 mmol/L (5-15); CALCIUM 8.9 mg/dL (8.5-10.1); CHLORIDE 104 mmol/L (98-107); CREATININE 3.52 mg/dL (0.7-1.3)
[2020-01-17 04:30] LABS: ALKALINE PHOSPHATASE 391 U/L (45-117); BILIRUBIN,TOTAL 0.4 mg/dL (0.2-1.0); TOTAL PROTEIN 7.8 g/dL (6.4-8.2)
[2020-01-17 04:32] LABS: MD NO
[2020-01-17] MEDS: PANTOPRAZOLE 40 MG IV IVPush SCH ×2 (09:10→20:37)
[2020-01-17] MEDS: SODIUM CHLORIDE FLUSH 10ML SYR IVF SCH ×2 (09:10→20:37)
[2020-01-17] MEDS: MEROPENEM 1 GM in SODIUM CHLORIDE 0.9% 100 ML IV SCH ×2 (09:41→22:18)
[2020-01-17] MEDS ORDERED: SODIUM BICARBONATE 4.0%, 5ML NPPB SCH (11:00)
[2020-01-17] MEDS: SODIUM BICARBONATE 4.2%, 5ML NPPB SCH ×2 (19:10→23:30)
[2020-01-17] MEDS: SENNA/DOCUSATE TABLET NG PRN (20:37)
[2020-01-17] MEDS: MELATONIN 5 MG TABLET PO SCH (22:18)
[2020-01-18 02:00] VITALS: BP 104/54
[2020-01-18] MEDS: INSULIN LISPRO 100 UNITS/ML, PEN SQ-INSULIN SCH ×4 (02:50→20:59)
[2020-01-18] MEDS: SODIUM BICARBONATE 4.2%, 5ML NPPB SCH ×6 (03:10→22:56)
[2020-01-18] MEDS: ALBUTEROL/IPRATROPIUM 2.5MG/0.5MG, 3 ML INLINE SCH ×6 (03:10→22:56)
[2020-01-18 05:19] LABS: BASOPHILS % (AUTO) 1 % (0-1); EOSINOPHILS % (AUTO) 7 % (1-7); LYMPHOCYTES % (AUTO) 19 % (22-44); MEAN CORPUSCULAR HEMOGLOBIN 30.7 pg (27.5-34.5); MEAN CORPUSCULAR HGB CONC 35.1 g/dL (33.2-36.2); MEAN PLATELET VOLUME 7.1 fL (7.4-10.4); MONOCYTES % (AUTO) 9 % (2-9); NEUTROPHILS % (AUTO) 65 % (42-75); PLATELET COUNT 220 x10^3/uL (130-400); RED BLOOD COUNT 2.58 x10^6/uL (4.38-5.82); RED CELL DISTRIBUTION WIDTH 13.8 % (9.4-14.8)
[2020-01-18 05:23] LABS: MD NO
[2020-01-18 05:29] LABS: ALBUMIN 2.3 g/dL (3.4-5.0); ANION GAP 4 mmol/L (5-15); CHLORIDE 104 mmol/L (98-107)
[2020-01-18 05:32] LABS: ALANINE AMINOTRANSFERASE 26 U/L (12-78); ALKALINE PHOSPHATASE 361 U/L (45-117); BILIRUBIN,TOTAL 0.4 mg/dL (0.2-1.0); CREATININE 2.61 mg/dL (0.7-1.3); TOTAL PROTEIN 7.6 g/dL (6.4-8.2)
[2020-01-18] MEDS ORDERED: SODIUM PHOSPHATE 10 MMOL in SODIUM CHLORIDE 0.9% 500 ML IV ONE (07:30)
[2020-01-18] MEDS: MEROPENEM 1 GM in SODIUM CHLORIDE 0.9% 100 ML IV SCH ×2 (09:27→22:07)
[2020-01-18] MEDS: SODIUM CHLORIDE FLUSH 10ML SYR IVF SCH ×2 (09:28→20:05)
[2020-01-18] MEDS: PANTOPRAZOLE 40 MG IV IVPush SCH ×2 (09:28→20:06)
[2020-01-18] MEDS: ACETAMINOPHEN 325 MG TABLET PO PRN (20:09)
[2020-01-18] MEDS: MELATONIN 5 MG TABLET PO SCH (22:07)
[2020-01-19] MEDS: ALBUTEROL/IPRATROPIUM 2.5MG/0.5MG, 3 ML INLINE SCH ×5 (03:00→19:08)
[2020-01-19] MEDS: INSULIN LISPRO 100 UNITS/ML, PEN SQ-INSULIN SCH ×4 (03:00→21:46)
[2020-01-19] MEDS: SODIUM BICARBONATE 4.2%, 5ML NPPB SCH ×4 (03:38→15:33)
[2020-01-19 04:00] VITALS: BP 129/77
[2020-01-19 05:20] LABS: ALANINE AMINOTRANSFERASE 23 U/L (12-78); ALBUMIN 2.3 g/dL (3.4-5.0); ANION GAP 8 mmol/L (5-15); CALCIUM 9.3 mg/dL (8.5-10.1); CHLORIDE 103 mmol/L (98-107); CREATININE 3.81 mg/dL (0.7-1.3)
[2020-01-19 05:23] LABS: ALKALINE PHOSPHATASE 314 U/L (45-117); BILIRUBIN,TOTAL 0.4 mg/dL (0.2-1.0); TOTAL PROTEIN 7.5 g/dL (6.4-8.2)
[2020-01-19 05:44] LABS: BASOPHILS % (AUTO) 1 % (0-1); EOSINOPHILS % (AUTO) 4 % (1-7); LYMPHOCYTES % (AUTO) 17 % (22-44); MEAN CORPUSCULAR HEMOGLOBIN 31.5 pg (27.5-34.5); MEAN CORPUSCULAR HGB CONC 34.8 g/dL (33.2-36.2); MEAN PLATELET VOLUME 7.7 fL (7.4-10.4); MONOCYTES % (AUTO) 8 % (2-9); NEUTROPHILS % (AUTO) 71 % (42-75); PLATELET COUNT 216 x10^3/uL (130-400); RED BLOOD COUNT 2.49 x10^6/uL (4.38-5.82)
[2020-01-19 05:54] LABS: MD NO
[2020-01-19] MEDS: SODIUM CHLORIDE FLUSH 10ML SYR IVF SCH ×2 (08:54→21:46)
[2020-01-19] MEDS: PANTOPRAZOLE 40 MG IV IVPush SCH ×2 (08:54→21:45)
[2020-01-19] MEDS: MEROPENEM 1 GM in SODIUM CHLORIDE 0.9% 100 ML IV SCH ×2 (13:25→22:01)
[2020-01-19] MEDS: FENTANYL REMOVE PATCH NOTE XX SCH (15:00)
[2020-01-19] MEDS: FENTANYL 75 MCG PATCH TD SCH (16:05)
[2020-01-19] MEDS: MELATONIN 5 MG TABLET PO SCH (21:45)
[2020-01-20] MEDS: ACETAMINOPHEN 325 MG TABLET PO PRN ×2 (00:38→22:56)
[2020-01-20] MEDS: INSULIN LISPRO 100 UNITS/ML, PEN SQ-INSULIN SCH ×4 (03:00→20:15)
[2020-01-20] MEDS: ALBUTEROL/IPRATROPIUM 2.5MG/0.5MG, 3 ML INLINE SCH ×4 (03:00→19:27)
[2020-01-20 04:00] VITALS: BP 114/66
[2020-01-20 05:04] LABS: ANION GAP 7 mmol/L (5-15); CALCIUM 9.2 mg/dL (8.5-10.1); CHLORIDE 104 mmol/L (98-107)
[2020-01-20 05:05] LABS: CREATININE 3.17 mg/dL (0.7-1.3)
[2020-01-20 05:12] LABS: BASOPHILS % (AUTO) 1 % (0-1); EOSINOPHILS % (AUTO) 3 % (1-7); LYMPHOCYTES % (AUTO) 20 % (22-44); MEAN CORPUSCULAR HEMOGLOBIN 30.2 pg (27.5-34.5); MEAN CORPUSCULAR HGB CONC 34.8 g/dL (33.2-36.2); MEAN PLATELET VOLUME 7.8 fL (7.4-10.4); MONOCYTES % (AUTO) 10 % (2-9); NEUTROPHILS % (AUTO) 67 % (42-75); PLATELET COUNT 232 x10^3/uL (130-400); RED BLOOD COUNT 2.57 x10^6/uL (4.38-5.82); RED CELL DISTRIBUTION WIDTH 14.1 % (9.4-14.8)
[2020-01-20 05:23] LABS: MD NO
[2020-01-20] MEDS: PANTOPRAZOLE 40 MG IV IVPush SCH ×2 (08:42→21:37)
[2020-01-20] MEDS: SODIUM CHLORIDE FLUSH 10ML SYR IVF SCH ×2 (08:43→21:44)
[2020-01-20] MEDS: SODIUM BICARBONATE 4.2%, 5ML NPPB SCH ×4 (09:00→21:37)
[2020-01-20] MEDS: MEROPENEM 1 GM in SODIUM CHLORIDE 0.9% 100 ML IV SCH ×2 (10:07→22:56)
[2020-01-20] MEDS ORDERED: MEROPENEM 1 GM in SODIUM CHLORIDE 0.9% 100 ML IV SCH (12:30)
[2020-01-20] MEDS: MELATONIN 5 MG TABLET PO SCH (21:37)
[2020-01-21] MEDS: INSULIN LISPRO 100 UNITS/ML, PEN SQ-INSULIN SCH ×4 (03:00→21:10)
[2020-01-21] MEDS: ALBUTEROL/IPRATROPIUM 2.5MG/0.5MG, 3 ML INLINE SCH ×4 (03:12→19:21)
[2020-01-21] MEDS: SODIUM BICARBONATE 4.2%, 5ML NPPB SCH ×3 (03:12→14:10)
[2020-01-21 04:00] VITALS: BP 128/75
[2020-01-21 04:44] LABS: ANION GAP 5 mmol/L (5-15); CALCIUM 9.6 mg/dL (8.5-10.1); CHLORIDE 103 mmol/L (98-107); CREATININE 4.39 mg/dL (0.7-1.3)
[2020-01-21 04:45] LABS: BASOPHILS % (AUTO) 1 % (0-1); EOSINOPHILS % (AUTO) 4 % (1-7); LYMPHOCYTES % (AUTO) 21 % (22-44); MEAN CORPUSCULAR HEMOGLOBIN 30.2 pg (27.5-34.5); MEAN CORPUSCULAR HGB CONC 34.9 g/dL (33.2-36.2); MEAN PLATELET VOLUME 7.7 fL (7.4-10.4); MONOCYTES % (AUTO) 10 % (2-9); NEUTROPHILS % (AUTO) 64 % (42-75); PLATELET COUNT 246 x10^3/uL (130-400); RED BLOOD COUNT 2.58 x10^6/uL (4.38-5.82); RED CELL DISTRIBUTION WIDTH 14.1 % (9.4-14.8)
[2020-01-21 04:57] LABS: MD NO
[2020-01-21] MEDS: MEROPENEM 1 GM in SODIUM CHLORIDE 0.9% 100 ML IV SCH ×2 (09:52→21:24)
[2020-01-21] MEDS: SODIUM CHLORIDE FLUSH 10ML SYR IVF SCH ×2 (09:54→21:11)
[2020-01-21] MEDS: PANTOPRAZOLE 40 MG IV IVPush SCH ×2 (09:55→21:11)
[2020-01-21] MEDS ORDERED: ONDANSETRON 2MG/ML, 2ML ONE (14:09)
[2020-01-21] MEDS: ONDANSETRON 2MG/ML, 2ML IVPush PRN (14:16)
[2020-01-21] MEDS ORDERED: morphine SULFATE 10 MG/ML, 1ML IVPush PRN (14:30)
[2020-01-21 15:07] LABS: MICROSCOPIC INDICATED
[2020-01-21 19:40] VITALS: BP 130/71
[2020-01-21] MEDS: ACETAMINOPHEN 325 MG TABLET PO PRN (21:10)
[2020-01-21] MEDS: MELATONIN 5 MG TABLET PO SCH (21:10)
[2020-01-22] MEDS: ALBUTEROL/IPRATROPIUM 2.5MG/0.5MG, 3 ML INLINE SCH ×4 (02:58→21:00)
[2020-01-22] MEDS: INSULIN LISPRO 100 UNITS/ML, PEN SQ-INSULIN SCH ×4 (03:19→21:00)
[2020-01-22 04:37] VITALS: BP 131/78
[2020-01-22 05:22] LABS: BASOPHILS % (AUTO) 1 % (0-1); EOSINOPHILS % (AUTO) 3 % (1-7); LYMPHOCYTES % (AUTO) 17 % (22-44); MEAN CORPUSCULAR HEMOGLOBIN 29.8 pg (27.5-34.5); MEAN CORPUSCULAR HGB CONC 34.8 g/dL (33.2-36.2); MEAN PLATELET VOLUME 7.6 fL (7.4-10.4); MONOCYTES % (AUTO) 8 % (2-9); NEUTROPHILS % (AUTO) 71 % (42-75); PLATELET COUNT 259 x10^3/uL (130-400); RED BLOOD COUNT 2.69 x10^6/uL (4.38-5.82); RED CELL DISTRIBUTION WIDTH 14.2 % (9.4-14.8)
[2020-01-22 05:24] LABS: ANION GAP 4 mmol/L (5-15); CALCIUM 9.2 mg/dL (8.5-10.1); CHLORIDE 103 mmol/L (98-107); CREATININE 2.89 mg/dL (0.7-1.3)
[2020-01-22 05:29] LABS: MD NO
[2020-01-22 06:35] LABS: O2 FLOW 40 L/min
[2020-01-22] MEDS: PANTOPRAZOLE 40 MG IV IVPush SCH ×2 (08:03→23:42)
[2020-01-22] MEDS: SODIUM CHLORIDE FLUSH 10ML SYR IVF SCH ×2 (08:03→23:50)
[2020-01-22] MEDS: MEROPENEM 1 GM in SODIUM CHLORIDE 0.9% 100 ML IV SCH ×2 (09:50→23:52)
[2020-01-22] MEDS: ACETAMINOPHEN 325 MG TABLET PO PRN (12:29)
[2020-01-22] MEDS: FENTANYL REMOVE PATCH NOTE XX SCH (15:00)
[2020-01-22] MEDS: FENTANYL 75 MCG PATCH TD SCH (15:55)
[2020-01-22] MEDS: ONDANSETRON 2MG/ML, 2ML IVPush PRN ×2 (17:05→23:42)
[2020-01-22] MEDS: MELATONIN 5 MG TABLET PO SCH (23:49)
[2020-01-23] MEDS: ALBUTEROL/IPRATROPIUM 2.5MG/0.5MG, 3 ML INLINE SCH ×4 (00:50→21:00)
[2020-01-23 03:53] VITALS: BP 128/79
[2020-01-23 04:12] LABS: BASOPHILS % (AUTO) 1 % (0-1); EOSINOPHILS % (AUTO) 2 % (1-7); LYMPHOCYTES % (AUTO) 17 % (22-44); MEAN CORPUSCULAR HEMOGLOBIN 29.2 pg (27.5-34.5); MEAN CORPUSCULAR HGB CONC 34.5 g/dL (33.2-36.2); MEAN PLATELET VOLUME 7.7 fL (7.4-10.4); MONOCYTES % (AUTO) 9 % (2-9); NEUTROPHILS % (AUTO) 71 % (42-75); PLATELET COUNT 311 x10^3/uL (130-400); RED BLOOD COUNT 2.97 x10^6/uL (4.38-5.82)
[2020-01-23 04:20] LABS: MD NO
[2020-01-23] MEDS: INSULIN LISPRO 100 UNITS/ML, PEN SQ-INSULIN SCH ×4 (04:21→20:44)
[2020-01-23 04:24] LABS: ANION GAP 3 mmol/L (5-15); CALCIUM 8.9 mg/dL (8.5-10.1); CHLORIDE 102 mmol/L (98-107); CREATININE 2.23 mg/dL (0.7-1.3)
[2020-01-23 04:25] LABS: BILIRUBIN,TOTAL 0.4 mg/dL (0.2-1.0)
[2020-01-23] MEDS ORDERED: POTASSIUM PHOSPHATE 22 MEQ in SODIUM CHLORIDE 0.9% 500 ML IV ONE (07:00)
[2020-01-23] MEDS: SODIUM CHLORIDE FLUSH 10ML SYR IVF SCH ×2 (08:04→20:42)
[2020-01-23] MEDS: PANTOPRAZOLE 40 MG IV IVPush SCH ×2 (08:04→20:42)
[2020-01-23] MEDS: MEROPENEM 1 GM in SODIUM CHLORIDE 0.9% 100 ML IV SCH ×2 (12:25→21:59)
[2020-01-23] MEDS: HEPARIN 5,000 UNITS/ML, 1ML SQ SCH ×2 (13:31→20:42)
[2020-01-23 15:34] VITALS: BP 131/79
[2020-01-23 20:00] VITALS: BP 148/90
[2020-01-23] MEDS: MELATONIN 5 MG TABLET PO SCH (20:42)
[2020-01-24] MEDS: ALBUTEROL/IPRATROPIUM 2.5MG/0.5MG, 3 ML INLINE SCH ×4 (00:18→22:40)
[2020-01-24 02:00] VITALS: BP 121/73
[2020-01-24] MEDS: INSULIN LISPRO 100 UNITS/ML, PEN SQ-INSULIN SCH ×5 (03:00→20:56)
[2020-01-24 03:15] LABS: BASOPHILS % (AUTO) 1 % (0-1); EOSINOPHILS % (AUTO) 4 % (1-7); LYMPHOCYTES % (AUTO) 24 % (22-44); MEAN CORPUSCULAR HEMOGLOBIN 29.3 pg (27.5-34.5); MEAN CORPUSCULAR HGB CONC 34.8 g/dL (33.2-36.2); MEAN PLATELET VOLUME 7.5 fL (7.4-10.4); MONOCYTES % (AUTO) 11 % (2-9); NEUTROPHILS % (AUTO) 61 % (42-75); PLATELET COUNT 305 x10^3/uL (130-400); RED CELL DISTRIBUTION WIDTH 13.9 % (9.4-14.8)
[2020-01-24 03:18] LABS: MD NO
[2020-01-24 03:22] LABS: ANION GAP 6 mmol/L (5-15); CHLORIDE 104 mmol/L (98-107); CREATININE 3.85 mg/dL (0.7-1.3)
[2020-01-24] MEDS: HEPARIN 5,000 UNITS/ML, 1ML SQ SCH ×3 (05:17→21:31)
[2020-01-24] MEDS: PANTOPRAZOLE 40 MG IV IVPush SCH ×2 (08:41→21:30)
[2020-01-24] MEDS: SODIUM CHLORIDE FLUSH 10ML SYR IVF SCH ×2 (08:41→21:32)
[2020-01-24] MEDS: ONDANSETRON 2MG/ML, 2ML IVPush PRN (08:55)
[2020-01-24 09:00] VITALS: BP 141/84
[2020-01-24 15:00] VITALS: BP 135/84
[2020-01-24] MEDS: MEROPENEM 1 GM in SODIUM CHLORIDE 0.9% 100 ML IV SCH (16:12)
[2020-01-24 19:00] VITALS: BP 139/79
[2020-01-24] MEDS ORDERED: INSULIN GLARGINE 100 UNITS/ML, PEN SQ-INSULIN SCH (21:00)
[2020-01-24] MEDS: ACETAMINOPHEN 325 MG TABLET PO PRN (21:30)
[2020-01-24] MEDS: MELATONIN 5 MG TABLET PO SCH (21:30)
[2020-01-25 01:50] VITALS: BP 125/72
[2020-01-25] MEDS: ALBUTEROL/IPRATROPIUM 2.5MG/0.5MG, 3 ML INLINE SCH (03:00)
[2020-01-25] MEDS: MEROPENEM 1 GM in SODIUM CHLORIDE 0.9% 100 ML IV SCH ×2 (04:14→15:46)
[2020-01-25 05:29] LABS: BASOPHILS % (AUTO) 1 % (0-1); EOSINOPHILS % (AUTO) 3 % (1-7); LYMPHOCYTES % (AUTO) 26 % (22-44); MEAN CORPUSCULAR HEMOGLOBIN 29.7 pg (27.5-34.5); MEAN CORPUSCULAR HGB CONC 34.8 g/dL (33.2-36.2); MEAN PLATELET VOLUME 7.6 fL (7.4-10.4); MONOCYTES % (AUTO) 11 % (2-9); NEUTROPHILS % (AUTO) 60 % (42-75); PLATELET COUNT 337 x10^3/uL (130-400); RED CELL DISTRIBUTION WIDTH 14.1 % (9.4-14.8)
[2020-01-25 05:31] LABS: MD NO
[2020-01-25 05:37] LABS: ANION GAP 6 mmol/L (5-15); CALCIUM 9.3 mg/dL (8.5-10.1); CHLORIDE 105 mmol/L (98-107)
[2020-01-25 05:38] LABS: CREATININE 3.05 mg/dL (0.7-1.3)
[2020-01-25] MEDS: HEPARIN 5,000 UNITS/ML, 1ML SQ SCH ×3 (06:07→21:11)
[2020-01-25 06:08] VITALS: BP 138/74
[2020-01-25] MEDS: INSULIN LISPRO 100 UNITS/ML, PEN SQ-INSULIN SCH ×4 (07:50→21:11)
[2020-01-25] MEDS: PANTOPRAZOLE 40 MG IV IVPush SCH (08:27)
[2020-01-25] MEDS: SODIUM CHLORIDE FLUSH 10ML SYR IVF SCH ×2 (08:27→21:11)
[2020-01-25 13:21] VITALS: BP 136/81
[2020-01-25] MEDS: FENTANYL 75 MCG PATCH TD SCH (15:45)
[2020-01-25] MEDS: FENTANYL REMOVE PATCH NOTE XX SCH (15:45)
[2020-01-25] MEDS: PANTOPRAZOLE 40MG TABLET PO SCH (16:40)
[2020-01-25] MEDS: MELATONIN 5 MG TABLET PO SCH (21:11)
[2020-01-25 21:20] VITALS: BP 153/86
[2020-01-26 00:42] VITALS: BP 145/81
[2020-01-26] MEDS: PANTOPRAZOLE 40MG TABLET PO SCH ×2 (04:59→16:23)
[2020-01-26] MEDS: HEPARIN 5,000 UNITS/ML, 1ML SQ SCH ×3 (05:00→21:37)
[2020-01-26 05:15] LABS: BASOPHILS % (AUTO) 2 % (0-1); EOSINOPHILS % (AUTO) 4 % (1-7); LYMPHOCYTES % (AUTO) 27 % (22-44); MEAN CORPUSCULAR HEMOGLOBIN 29.5 pg (27.5-34.5); MEAN CORPUSCULAR HGB CONC 34.9 g/dL (33.2-36.2); MEAN PLATELET VOLUME 7.3 fL (7.4-10.4); MONOCYTES % (AUTO) 11 % (2-9); NEUTROPHILS % (AUTO) 57 % (42-75); PLATELET COUNT 323 x10^3/uL (130-400); RED BLOOD COUNT 2.84 x10^6/uL (4.38-5.82); RED CELL DISTRIBUTION WIDTH 14.1 % (9.4-14.8)
[2020-01-26 05:21] LABS: MD NO
[2020-01-26 05:28] LABS: ALBUMIN 2.7 g/dL (3.4-5.0); ANION GAP 7 mmol/L (5-15); CALCIUM 9.5 mg/dL (8.5-10.1); CHLORIDE 104 mmol/L (98-107)
[2020-01-26 05:32] LABS: ALANINE AMINOTRANSFERASE 12 U/L (12-78); ALKALINE PHOSPHATASE 161 U/L (45-117); BILIRUBIN,TOTAL 0.7 mg/dL (0.2-1.0); CREATININE 4.71 mg/dL (0.7-1.3); TOTAL PROTEIN 7.8 g/dL (6.4-8.2)
[2020-01-26] MEDS: INSULIN LISPRO 100 UNITS/ML, PEN SQ-INSULIN SCH ×4 (07:00→21:37)
[2020-01-26 08:00] VITALS: BP 145/80
[2020-01-26] MEDS: SODIUM CHLORIDE FLUSH 10ML SYR IVF SCH ×2 (08:18→21:37)
[2020-01-26 13:54] VITALS: BP 120/71
[2020-01-26 21:09] VITALS: BP 112/70
[2020-01-26] MEDS: MELATONIN 5 MG TABLET PO SCH (21:37)
[2020-01-27 03:45] VITALS: BP 137/86
[2020-01-27] MEDS: HEPARIN 5,000 UNITS/ML, 1ML SQ SCH ×3 (05:28→20:31)
[2020-01-27] MEDS: PANTOPRAZOLE 40MG TABLET PO SCH ×2 (05:29→16:23)
[2020-01-27 06:42] LABS: BASOPHILS % (AUTO) 1 % (0-1); EOSINOPHILS % (AUTO) 4 % (1-7); LYMPHOCYTES % (AUTO) 19 % (22-44); MEAN CORPUSCULAR HEMOGLOBIN 28.8 pg (27.5-34.5); MEAN CORPUSCULAR HGB CONC 33.7 g/dL (33.2-36.2); MEAN PLATELET VOLUME 7.5 fL (7.4-10.4); MONOCYTES % (AUTO) 10 % (2-9); NEUTROPHILS % (AUTO) 66 % (42-75); PLATELET COUNT 322 x10^3/uL (130-400); RED BLOOD COUNT 3.16 x10^6/uL (4.38-5.82); RED CELL DISTRIBUTION WIDTH 14.3 % (9.4-14.8)
[2020-01-27 06:45] LABS: MD NO
[2020-01-27] MEDS: INSULIN LISPRO 100 UNITS/ML, PEN SQ-INSULIN SCH ×4 (07:00→21:12)
[2020-01-27 07:35] VITALS: BP 136/78
[2020-01-27 07:39] LABS: ANION GAP 4 mmol/L (5-15); CALCIUM 9.5 mg/dL (8.5-10.1); CHLORIDE 105 mmol/L (98-107)
[2020-01-27] MEDS: SODIUM CHLORIDE FLUSH 10ML SYR IVF SCH ×2 (08:24→20:31)
[2020-01-27 14:00] VITALS: BP 125/72
[2020-01-27 18:50] VITALS: BP 157/83
[2020-01-27] MEDS: MELATONIN 5 MG TABLET PO SCH (20:31)
[2020-01-28 00:43] VITALS: BP 142/85
[2020-01-28] MEDS: HEPARIN 5,000 UNITS/ML, 1ML SQ SCH ×4 (05:56→21:41)
[2020-01-28] MEDS: PANTOPRAZOLE 40MG TABLET PO SCH ×2 (05:56→16:50)
[2020-01-28 06:23] LABS: BASOPHILS % (AUTO) 1 % (0-1); EOSINOPHILS % (AUTO) 2 % (1-7); LYMPHOCYTES % (AUTO) 18 % (22-44); MEAN PLATELET VOLUME 7.3 fL (7.4-10.4); MONOCYTES % (AUTO) 9 % (2-9); NEUTROPHILS % (AUTO) 70 % (42-75); PLATELET COUNT 304 x10^3/uL (130-400); RED BLOOD COUNT 2.86 x10^6/uL (4.38-5.82); RED CELL DISTRIBUTION WIDTH 14.2 % (9.4-14.8)
[2020-01-28 06:34] LABS: CHLORIDE 103 mmol/L (98-107)
[2020-01-28 06:46] LABS: MD NO
[2020-01-28 06:50] LABS: ALANINE AMINOTRANSFERASE 10 U/L (12-78); ALBUMIN 2.8 g/dL (3.4-5.0); ALKALINE PHOSPHATASE 154 U/L (45-117); ANION GAP 8 mmol/L (5-15); BILIRUBIN,TOTAL 1.2 mg/dL (0.2-1.0); CALCIUM 9.5 mg/dL (8.5-10.1); CREATININE 5.38 mg/dL (0.7-1.3)
[2020-01-28] MEDS: INSULIN LISPRO 100 UNITS/ML, PEN SQ-INSULIN SCH ×4 (06:56→21:12)
[2020-01-28 08:15] VITALS: BP 141/79
[2020-01-28 08:20] VITALS: BP 115/65
[2020-01-28] MEDS: SODIUM CHLORIDE FLUSH 10ML SYR IVF SCH ×2 (08:47→20:59)
[2020-01-28] MEDS ORDERED: ALBUMIN HUMAN 25% 100 ML IV SCH (13:00)
[2020-01-28 15:30] VITALS: BP 123/80
[2020-01-28] MEDS: FENTANYL 75 MCG PATCH TD SCH (16:49)
[2020-01-28] MEDS: FENTANYL REMOVE PATCH NOTE XX SCH (16:50)
[2020-01-28 20:01] VITALS: BP 115/76
[2020-01-28] MEDS: MELATONIN 5 MG TABLET PO SCH (21:00)
[2020-01-29 00:46] VITALS: BP 143/72
[2020-01-29] MEDS: PANTOPRAZOLE 40MG TABLET PO SCH ×2 (05:30→16:36)
[2020-01-29 06:30] LABS: BASOPHILS % (AUTO) 1 % (0-1); EOSINOPHILS % (AUTO) 3 % (1-7); LYMPHOCYTES % (AUTO) 18 % (22-44); MEAN CORPUSCULAR HEMOGLOBIN 29.1 pg (27.5-34.5); MEAN PLATELET VOLUME 7.5 fL (7.4-10.4); MONOCYTES % (AUTO) 9 % (2-9); NEUTROPHILS % (AUTO) 69 % (42-75); PLATELET COUNT 306 x10^3/uL (130-400); RED BLOOD COUNT 3.04 x10^6/uL (4.38-5.82); RED CELL DISTRIBUTION WIDTH 14.3 % (9.4-14.8)
[2020-01-29 06:40] LABS: ALANINE AMINOTRANSFERASE 14 U/L (12-78); ALBUMIN 3.2 g/dL (3.4-5.0); ANION GAP 6 mmol/L (5-15); CALCIUM 9.6 mg/dL (8.5-10.1); CHLORIDE 105 mmol/L (98-107); CREATININE 4.15 mg/dL (0.7-1.3)
[2020-01-29 06:41] LABS: ALKALINE PHOSPHATASE 155 U/L (45-117); BILIRUBIN,TOTAL 0.5 mg/dL (0.2-1.0); TOTAL PROTEIN 8.8 g/dL (6.4-8.2)
[2020-01-29 06:47] LABS: MD NO
[2020-01-29] MEDS: INSULIN LISPRO 100 UNITS/ML, PEN SQ-INSULIN SCH ×4 (06:48→20:30)
[2020-01-29 07:20] VITALS: BP 108/70
[2020-01-29] MEDS: SODIUM CHLORIDE FLUSH 10ML SYR IVF SCH ×2 (09:00→20:30)
[2020-01-29 11:35] VITALS: BP 111/93
[2020-01-29 11:36] VITALS: BP 100/66
[2020-01-29] MEDS ORDERED: FENTANYL 50 MCG PATCH TD SCH (12:00)
[2020-01-29 13:04] VITALS: BP 130/77
[2020-01-29] MEDS ORDERED: FENTANYL 25 MCG PATCH ONE (13:44)
[2020-01-29] MEDS: HEPARIN 5,000 UNITS/ML, 1ML SQ SCH ×2 (13:49→21:36)
[2020-01-29] MEDS: MELATONIN 5 MG TABLET PO SCH (20:29)
[2020-01-29 20:31] VITALS: BP 124/80
[2020-01-30 02:25] VITALS: BP 130/86
[2020-01-30 04:54] LABS: BASOPHILS % (AUTO) 1 % (0-1); EOSINOPHILS % (AUTO) 2 % (1-7); LYMPHOCYTES % (AUTO) 17 % (22-44); MEAN CORPUSCULAR HEMOGLOBIN 28.9 pg (27.5-34.5); MEAN CORPUSCULAR HGB CONC 33.9 g/dL (33.2-36.2); MEAN PLATELET VOLUME 7.8 fL (7.4-10.4); MONOCYTES % (AUTO) 10 % (2-9); NEUTROPHILS % (AUTO) 70 % (42-75); PLATELET COUNT 287 x10^3/uL (130-400); RED BLOOD COUNT 3.01 x10^6/uL (4.38-5.82); RED CELL DISTRIBUTION WIDTH 14.4 % (9.4-14.8)
[2020-01-30 04:55] LABS: MD NO
[2020-01-30 05:05] LABS: ALBUMIN 3.2 g/dL (3.4-5.0); ANION GAP 9 mmol/L (5-15); CHLORIDE 104 mmol/L (98-107)
[2020-01-30 05:08] LABS: ALANINE AMINOTRANSFERASE 12 U/L (12-78); ALKALINE PHOSPHATASE 149 U/L (45-117); BILIRUBIN,TOTAL 0.5 mg/dL (0.2-1.0); CREATININE 5.84 mg/dL (0.7-1.3); TOTAL PROTEIN 8.7 g/dL (6.4-8.2)
[2020-01-30] MEDS: HEPARIN 5,000 UNITS/ML, 1ML SQ SCH ×2 (06:00→16:05)
[2020-01-30] MEDS: PANTOPRAZOLE 40MG TABLET PO SCH ×2 (06:00→16:05)
[2020-01-30] MEDS: INSULIN LISPRO 100 UNITS/ML, PEN SQ-INSULIN SCH (07:00)
[2020-01-30 08:40] VITALS: BP 134/76
[2020-01-30] MEDS: SODIUM CHLORIDE FLUSH 10ML SYR IVF SCH (10:45)
[2020-01-30] MEDS ORDERED: LIDOCAINE 1%, 20ML ONE (11:40)
[2020-01-30] MEDS ORDERED: FENTANYL PF 100 MCG/2ML ONE (12:12)
[2020-01-30] MEDS ORDERED: MIDAZOLAM 1 MG/ML, 5ML ONE (12:13)
[2020-01-30] MEDS ORDERED: FLUMAZENIL 0.1 MG/1 ML, 5ML ONE (12:13)
[2020-01-30] MEDS ORDERED: NALOXONE 1 MG/ML, 2ML ONE (12:13)
[2020-01-30] MEDS ORDERED: ACET325T26 PO (14:26)
[2020-01-30] MEDS ORDERED: HEPA50002 SQ (14:26)
[2020-01-30] MEDS ORDERED: FENT1PAT76 TD (14:26)
[2020-01-30] MEDS ORDERED: Senna/Docusate PO (14:26)
[2020-01-30] MEDS ORDERED: PANT40TA6 PO (14:26)
[2020-01-30] MEDS ORDERED: MELA5TAB14 PO (14:26)
[2020-01-30] MEDS ORDERED: POLY17PO5 PO (14:26)
[2020-01-30] MEDS ORDERED: MIDO5TAB9 PO (14:27)
[2020-01-30 14:52] VITALS: BP 128/79
[2020-01-30 18:00] VITALS: BP 134/87
== END 2020-01-30 18:09 | DRG 4 ==
LOC: ED 13:33 → EDIP 13:35 → ICU 17:20 → ORIP 12-05 12:18 → ICU 12-05 12:21 → 4WST 01-24 09:52 → 3WST 01-25 10:57 → 5SO 01-28 19:22
PROVIDERS: ADMIT Family Medicine; ATTEND Internal Medicine
PROC: 5A1955Z Respiratory Ventilation, Greater than 96 Consecutive Hours (ICD-10-PCS; principal; 2019-12-02)
PROC: 0BH17EZ Insertion of Endotracheal Airway into Trachea, Via Natural or Artificial Opening (ICD-10-PCS; 2019-12-02)
PROC: 5A0935A Assistance with Respiratory Ventilation, Less than 24 Consecutive Hours, High Flow/Velocity Cannula (ICD-10-PCS; 2019-12-02)
PROC: XW033E5 Introduction of Remdesivir Anti-infective into Peripheral Vein, Percutaneous Approach, New Technology Group 5 (ICD-10-PCS; 2019-12-02)
PROC: 0T9B70Z Drainage of Bladder with Drainage Device, Via Natural or Artificial Opening (ICD-10-PCS; 2019-12-03)
PROC: 30233K1 Transfusion of Nonautologous Frozen Plasma into Peripheral Vein, Percutaneous Approach (ICD-10-PCS; 2019-12-13)
PROC: XW13325 Transfusion of Convalescent Plasma (Nonautologous) into Peripheral Vein, Percutaneous Approach, New Technology Group 5 (ICD-10-PCS; 2019-12-13)
PROC: 02HV33Z Insertion of Infusion Device into Superior Vena Cava, Percutaneous Approach (ICD-10-PCS; 2019-12-13)
PROC: B548ZZA Ultrasonography of Superior Vena Cava, Guidance (ICD-10-PCS; 2019-12-13)
PROC: 30233N1 Transfusion of Nonautologous Red Blood Cells into Peripheral Vein, Percutaneous Approach (ICD-10-PCS; 2019-12-19)
PROC: 02HV33Z Insertion of Infusion Device into Superior Vena Cava, Percutaneous Approach (ICD-10-PCS; 2019-12-26)
PROC: B548ZZA Ultrasonography of Superior Vena Cava, Guidance (ICD-10-PCS; 2019-12-26)
PROC: 5A1D70Z Performance of Urinary Filtration, Intermittent, Less than 6 Hours Per Day (ICD-10-PCS; 2019-12-26)
PROC: 0B113F4 Bypass Trachea to Cutaneous with Tracheostomy Device, Percutaneous Approach (ICD-10-PCS; 2020-01-06)
PROC: 0B938ZZ Drainage of Right Main Bronchus, Via Natural or Artificial Opening Endoscopic (ICD-10-PCS; 2020-01-06)
PROC: 0B21XFZ Change Tracheostomy Device in Trachea, External Approach (ICD-10-PCS; 2020-01-22)
PROC: 0JH63XZ Insertion of Tunneled Vascular Access Device into Chest Subcutaneous Tissue and Fascia, Percutaneous Approach (ICD-10-PCS; 2020-01-30)
PROC: 02HV33Z Insertion of Infusion Device into Superior Vena Cava, Percutaneous Approach (ICD-10-PCS; 2020-01-30)
PROC: B5181ZA Fluoroscopy of Superior Vena Cava using Low Osmolar Contrast, Guidance (ICD-10-PCS; 2020-01-30)
DX: A41.89 Other specified sepsis (principal); G93.41 Metabolic encephalopathy; I63.89 Other cerebral infarction; N17.0 Acute kidney failure with tubular necrosis; J12.89 Other viral pneumonia; J15.1 Pneumonia due to Pseudomonas; J80 Acute respiratory distress syndrome; R53.2 Functional quadriplegia; U07.1 COVID-19; R65.21 Severe sepsis with septic shock; D68.9 Coagulation defect, unspecified; E87.1 Hypo-osmolality and hyponatremia; E87.2 Acidosis; N39.0 Urinary tract infection, site not specified; Z99.11 Dependence on respirator [ventilator] status; J95.851 Ventilator associated pneumonia; J95.03 Malfunction of tracheostomy stoma; E87.0 Hyperosmolality and hypernatremia; D50.9 Iron deficiency anemia, unspecified; E11.649 Type 2 diabetes mellitus with hypoglycemia without coma; E11.65 Type 2 diabetes mellitus with hyperglycemia; E78.1 Pure hyperglyceridemia; E78.5 Hyperlipidemia, unspecified; E83.39 Other disorders of phosphorus metabolism; E86.9 Volume depletion, unspecified; E87.5 Hyperkalemia; E87.70 Fluid overload, unspecified; G83.9 Paralytic syndrome, unspecified; I10 Essential (primary) hypertension; E11.42 Type 2 diabetes mellitus with diabetic polyneuropathy; I95.1 Orthostatic hypotension; L80 Vitiligo; E87.6 Hypokalemia; N14.1 Nephropathy induced by other drugs, medicaments and biological substances; Y83.8 Other surgical procedures as the cause of abnormal reaction of the patient, or of later complication, without mention of misadventure at the time of the procedure; Y73.8 Miscellaneous gastroenterology and urology devices associated with adverse incidents, not elsewhere classified; T50.8X5A Adverse effect of diagnostic agents, initial encounter; Z79.84 Long term (current) use of oral hypoglycemic drugs; Z88.0 Allergy status to penicillin; Z99.2 Dependence on renal dialysis; Y92.89 Other specified places as the place of occurrence of the external cause; Z90.49 Acquired absence of other specified parts of digestive tract; Z79.899 Other long term (current) drug therapy
CPT/HCPCS: 36415; 36600; 74018; 74230; 84145; 87400; 99291; J3490; 31502; 36556; 36558; 36572; 70450; 71045; 71275; 74176; 76700; 76937; 80048; 80053; 80076; 80202; 81001; 82247; 82728; 82803; 82962; 83036; 83540; 83550; 83605; 83615; 83690; 83735; 84100; 84478; 84484; 85018; 85025; 85049; 85379; 85384; 85610; 85651; 85730; 86140; 86480; 86705; 86706; 86850; 86900; 86923; 87040; 87070; 87077; 87081; 87086; 87186; 87205; 87340; 87635; 87880; 90935; 93005; 93306; 94002; 94003; 94640; 99156; 99157; G0378; J0692; J1100; J1644; J1650; J1815; J1940; J1956; J2185; J2250; J2405; J2704; J3010; J3370; J7060; J7070; P9047; Q9967; C1750; C1751; C9113; J1642; J2270; J2310; J7030; J7040; J7050; J7120; P9016; P9017